=== PATIENT | female | born 1950 | race Caucasian/White ===

== ENCOUNTER → 2017-10-02 16:51 | Outpatient (CLI) | payer BC, MEDICARE, SELFPAY ==
--- NOTE | 2017-10-02 | IMM_PTH ---
PATIENT: CAITLYN LONDON LOC: [facility] U#:[id number] AGE/SX: 74/F ROOM: RE10/02/[address]: Dr. Campos Rodriguez MD : 1950 BED: DIS: SPEC #: [id number] RECD: 10/04/17 14:01 STATUS: JUDAH JILLIAN #: [id number] BRANDON: 10/02/17 00:[address]: Campos Rodriguez DEPT: IMMUNOHISTOCHEMISTRY RECD BY: Madison Beltran Tissues: Left breast, NOS Procedures: CK5-6 (add) CK8 (add) E-CAD (add) HER2 LION (add) KI-67 (add) P53 (add) MD (add) ER (initial) PHYSICIAN & INSTITUTION [place] [address] SPECIMEN INFORMATION: Tissue Source: Left breast Clinical Info: Abnormal mammogram Specimen Number: [id number] CPT code: 59562, 99395 x4, 39352 x3 METHODOLOGY: Deparaffinized sections of prefer/formalin-fixed tissue or PAP/DQ stained slides are incubated with monoclonal/polyclonal antibodies/oligonucleotide probes. Localization is made via biotin free immunoperoxidase method. Appropriate controls are performed and reacted as expected. Results on target cell population are indicated in the following table: RESULTS: ANTIBODY / CLONE RESULT E-Cad (ECH-6) positive CK8 (26pcndW41) positive CK5-6 (D5 & 1684) negative Ki-67 (30-9) positive, low P53 (DO-7) positive, weak, rare cells MORPHOMETRIC ANALYSIS ER (clone 6F11) >95%, strong MD (clone 16/1E2) >95%, moderate Her-2Neu (clone CB11) 1+ The prognostic test for HER2 is performed on formalin-fixed paraffin embedded tissue. A 3+ (positive) staining pattern is defined as intense, homogeneous, complete, circumferential membranous staining in >10% of contiguous tumor cells. A similar weak (2+) staining pattern is interpreted as equivocal. GWENDOLYN follow-up testing is recommended for all equivocal cases. Positivity/negativity for ER/MD is reported if > or < 1% of the tumor cells are immuno- reactive, respectively. The ASCO/CAP criteria is used for scoring. Reference: Journal of Clinical Oncology, 2013; 31:8943-5371 & 2010; 16:5405-3642. Duration of fixation: 28.5 Hrs; Sample Adequate: Yes. These assays have not been validated on decalcified tissues. Results should be interpreted with caution given the likelihood of false negativity on decalcified specimens. These tests were developed and their performance characteristics determined by [facility]. They may not have been cleared or approved by the U.S. Food and Drug Administration. The FDA has determined that such clearance or approval is not necessary. INTERPRETATION: Left breast, ultrasound-guided needle core biopsy: Invasive ductal carcinoma, nuclear grade 1. Positive for estrogen receptors (favorable prognostic indicator). Positive for progesterone receptors (favorable prognostic indicator). Negative for overexpression of SXH7zls. SJ:abel 10/05/17
--- NOTE | 2017-10-02 15:00 | BRBX_PTH ---
PATIENT: CAITLYN LONDON LOC: [facility] U#:[id number] AGE/SX: 74/F ROOM: RE10/02/[address]: Dr. Campos Rodriguez MD : 1950 BED: DIS: SPEC #: [id number] RECD: 10/02/17 16:51 STATUS: JUDAH JILLIAN #: [id number] BRANDON: 10/02/17 15:[address]: Campos Rodriguez DEPT: SURGICAL PATHOLOGY RECD BY: Jovany Pemberton Tissues: Left breast, NOS Procedures: Surgery Specimen Level IV HEADER OPERATION: Ultrasound-guided needle core biopsy left breast PRE-OP DIAGNOSIS: Abnormal mammogram R92.8 TISSUE SUBMITTED: Left breast biopsy ISCHEMIC TIME: <1 minute FIXATION TIME: 28.5 hours MICROSCOPIC DIAGNOSIS Left breast, ultrasound-guided needle core biopsy: Invasive ductal carcinoma, nuclear grade 1 (0.7 cm in length). See comment. SHRUTI:abel 7/25/18 COMMENT Immunohistochemistry ([id number]) supports the above diagnosis. ER/DC/Uzh1rsh studies are being performed on sections of tumor and the results from this study will be reported separately ([id number]). MICROSCOPIC DESCRIPTION Slides are reviewed. GROSS DESCRIPTION Received in fixative is one container labeled with the patient's name and designated left breast biopsy. The specimen consists of an elongated piece of chicas-yellow fibroadipose tissue measuring 1.5 cm in length and 0.1 cm in diameter. The entire specimen is submitted in one cassette. / SJ:rg 10/03/17 TC:0 CPT: 58581
== END ==
PROVIDERS: Visit Provider Surgery
DX: C50.912 Malignant neoplasm of unspecified site of left female breast (principal)
CPT/HCPCS: 88305; 88341; 88342

== ENCOUNTER 2017-11-09 13:49 | Observation (INO) | payer BC, MEDICARE, SELFPAY ==
[2017-11-09] VITALS (10 sets, daily range): BP systolic 126–154; BP diastolic 64–92; PULSE 69–82; RESP 16–18; TEMP 36–37.2; O2SAT 89–99; BMI 34.0
--- NOTE | 2017-11-09 | IMM_PTH ---
PATIENT: CAITLYN LONDON LOC: MS2 U#:[id number] AGE/SX: 67/F [place] [facility] [place] RE11/09/[address]: Dr. Campos Rodriguez MD : 1950 BED: 1 DIS: 11/10/2017 SPEC #: [id number] RECD: 11/15/17 10:03 STATUS: JUDAH REAmarjit #: [id number] BRANDON: 11/09/17 00:[address]: Campos Rodriguez DEPT: IMMUNOHISTOCHEMISTRY RECD BY: Love Logan ENTERED: 11/15/17 10:13 SP TYPE: IMMUNO OTHR DR: Dr. Gunnar Griggs MD Tissues: B - Axillary lymph node, NOS Procedures: CK7 (add) Pankeratin (add) CK7 (initial) PHYSICIAN & INSTITUTION [place] [address] SPECIMEN INFORMATION: Tissue Source: B ? Axillary contents Clinical Info: Malignant neoplasm of lower-inner quadrant left breast, ER positive Specimen Number: [id number] B1, B2 CPT code: 87082, 12903 x3 METHODOLOGY: Deparaffinized sections of prefer/formalin-fixed tissue or PAP/DQ stained slides are incubated with monoclonal/polyclonal antibodies/oligonucleotide probes. Localization is made via biotin free immunoperoxidase method. Appropriate controls are performed and reacted as expected. Results on target cell population are indicated in the following table: RESULTS: ANTIBODY / CLONE RESULT Block B1 CK7 (OV-TL12/30) negative AE1-3 (AE1/AE3/PCK26) negative Block B2 CK7 (OV-TL12/30) negative AE1-3 (AE1/AE3/PCK26) negative These tests were developed and their performance characteristics determined by [facility]. They may not have been cleared or approved by the U.S. Food and Drug Administration. The FDA has determined that such clearance or approval is not necessary. INTERPRETATION: B. Left axillary sentinel lymph nodes, biopsy: Three out of three lymph nodes negative for carcinoma. AM:abel 11/16/17
--- NOTE | 2017-11-09 | BREAST_PTH ---
PATIENT: CAITLYN LONDON LOC: MS2 U#:[id number] AGE/SX: 67/F ROOM: [facility] [place] [facility] [place] RE11/09/[address]: Dr. Campos Rodriguez MD : 1950 BED: 1 DIS: 11/10/2017 SPEC #: [id number] RECD: 11/09/17 11:08 STATUS: JUDAH JILLIAN #: [id number] BRANDON: 11/09/17 00:[address]: Campos Rodriguez DEPT: SURGICAL PATHOLOGY RECD BY: Love Logan ENTERED: 11/09/17 11:46 SP TYPE: BREAST OTHR DR: Dr. Gunnar Griggs MD Tissues: A - Left breast, NOS B - Axillary lymph node, NOS Procedures: Frozen Section (charge) Frozen Section Add'l ([facility]) Surgery Specimen Level V Frozen (no charge) HEADER OPERATION: Breast lumpectomy, SN, possible axillary dissection PRE-OP DIAGNOSIS: Malignant neoplasm of lower-inner quadrant of left breast, ER positive TISSUE SUBMITTED: A ? Left breast mass collected at 1100, sent for FS at 1104, single long suture ? medial, wire ? lateral, double long suture ? inferior, B ? Axillary contents collected at 1117, sent for FS at 1120 FROZEN SECTION DIAGNOSIS B. Left axillary sentinel lymph nodes, biopsy: Three out of three lymph nodes with no evidence of carcinoma. AM:abel 11/09/17 MICROSCOPIC DIAGNOSIS A. Left breast, lumpectomy: Invasive ductal carcinoma. See cancer checklist below. B. Left axillary contents, regional lymphadenectomy: Three out of three lymph nodes negative for carcinoma. See comment. :abel 11/15/17 COMMENT A. INVASIVE BREAST CANCER SUMMARY: Specimen: Partial breast Procedure: Excision with wire guidance Specimen integrity: Single intact specimen. Specimen size: 10 x 7.5 x 2 cm Specimen laterality: Left breast Invasive tumor size: 1.1 x 0.7 x 0.6 cm Tumor focality: Single focus of invasive carcinoma Macroscopic and Microscopic extent of tumor: Skin: Not present Nipple: Not present Skeletal muscle: Not present Histologic type of invasive carcinoma: Invasive ductal carcinoma Histologic Grade (Glo grade): Glandular/tubular differentiation score: 2 Nuclear pleomorphism score: 2 Mitotic count score: 1 Overall grade: Grade 1 (total score of 5) Margins: Uninvolved by invasive carcinoma. Distance from closest (inferior) margin ? 7 mm Lymph-Vascular invasion: Not identified Dermal lymph-vascular invasion: Not applicable Ductal carcinoma in situ (DCIS) - not present Lobular carcinoma in situ (LCIS) - not present Lymph nodes: Number of sentinel lymph nodes examined - 0 Total number of lymph nodes examined (sentinel and nonsentinel) - 3 No evidence of macrometastases, micrometastases or isolated tumor cells present. See specimen B. Microcalcifications ? present in both carcinoma and non-neoplastic tissue. Treatment effect - no known presurgical therapy. Additional pathologic findings ? fibrocystic change, adenosis with associated microcalcifications and focal intraductal hyperplasia without atypia. Changes of previous biopsy. Ancillary studies: Previously performed on same tumor ([id number] / [id number]). ER: Positive, <95%, strong SC: Positive, <95%, moderate Her2 gonzalez: negative (1+), IHC PATHOLOGIC STAGE: pT1c N0 Mx The above summary is in compliance with [employer] [place] [employer] (CAP) Cancer Protocols Checklist and [place] Joint Committee on Cancer (AJCC), Staging Manual, 8th Ed. B. Immunohistochemistry ([id number]) supports the above diagnosis. Case has been reviewed in consultation with Dr. Moon who concurs with the above diagnosis. IDC:SJ MICROSCOPIC DESCRIPTION Slides are reviewed. GROSS DESCRIPTION A - Received fresh for OR consultation labeled with the patient's name is a specimen designated ?left breast mass.? The specimen consists of an oriented fragment of chicas-yellow fibrofatty tissue measuring 10 x 7.5 x 2 cm and containing a wire. The specimen is differentially inked as follows: superior ? blue, inferior ? yellow, lateral ? orange, medial ? red, posterior ? black and inferior ? green. Sections reveal a 5 mm biopsy cavity with embedded metallic tracer. The biopsy cavity is located 7 mm from its closest (inferior) margin of excision. The remainder of the breast tissue is chicas-yellow and contains occasional fibrous streaks. No mass lesions are identified grossly. Outreach Assistant sections are submitted in ten cassettes as follows: 1 & 2 ? biopsy cavity and adjacent surrounding tissue, 3 & 4 ? perpendicular inked margins, 5-10 ? retail account representative sections of uninvolved breast parenchyma. / AM:abel 11/10/17 B - Received fresh for frozen section consultation labeled with the patient's name is a specimen designated sentinel lymph nodes/axillary contents. The specimen consists of three pieces of chicas-yellow fibrofatty tissue measuring 4 x 3.5 x 1 cm. Dissection reveals three nodules resembling lymph nodes ranging in size from 0.5 to 1.2 cm. The nodules are submitted in their entirety for frozen section consultation in two blocks. / AM:abel 11/09/17 TC:0 CPT: 59549, 36612, 88682, 65060 x2 ADDENDUM ADDENDUM ADDENDUM ADDENDUM ADDENDUM ADDENDUM ADDENDUM ADDENDUM 01/11/2018 09:56 ADDENDUM 01/11/2018 09:56 ADDENDUM 01/11/2018 09:56 ADDENDUM 01/11/2018 09:56 ADDENDUM 01/11/2018 09:56 An order for Oncotype testing was received from Dr. Lopez. This necessitated case review, block and slide selection by pathologist at [facility]. Breast Cancer Recurrence Score = 6 Results of the complete Oncotype testing ([facility] report) are viewable in EMR under: Reports - Pathology - Lab Pathology Report, Scanned.
[2017-11-09 08:36] LABS: Prothrombin Time Fingerstick 12.3 SEC (11.9-14.4)
[2017-11-09] MEDS: Isosulfan Blue 1% 5 ML Vial (09:56)
[2017-11-09] MEDS: Cefazolin 2 GM in 0.9% Normal Saline 100 ML IV (10:19)
--- NOTE | 2017-11-09 10:30 | OP.PCM_ITS ---
Problem List (1) Carcinoma of lower-inner quadrant of left breast, estrogen receptor negative Status: Acute Qualifiers: Patient sex: female Qualified Code(s): C50.312 - Malignant neoplasm of lower-inner quadrant of left female breast; Z17.1 - Estrogen receptor negative status [ER-] Report of Operation Date of Procedure: 11/09/17 Pre-Operative Diagnosis: c50.312 left female breast cancer lower inner quadrant Post-Operative Diagnosis: Same Surgery/Procedure Performed:: Ultrasound-guided wire localization of breast cancer lower inner quadrant. Injection of 5 cc of Lymphazurin blue. Lumpectomy. [place] lymph node biopsy Type of Anesthesia:: General Anesthesiologist: Nilo Neal Description of Procedure: Patient was brought in the operating room. Placed in the supine position. Under excellent LMA anesthesia by ultrasound the lower inner quadrant of the left breast identified the lesion I prepped the skin with alcohol. Under ultrasound guidance and placed a Kopan's wire through the lesion. I then injected 5 cc of Lymphazurin blue, regularly around the nipple. Breast was massaged for 5 minutes. And then it was sterilely prepped and draped in the usual fashion. A little inner quadrant of the left breast incision was made elliptically around the previous biopsy site. He is a plasma blade got all the way around the lesion had excellent hemostasis was sent to pathology and I had good margins around this very small cancerous lesion. The use of electrocautery and the wound to get good hemostasis and then packed the wound and then went into the axilla. I made an incision in the axilla and dissected down to the clavipectoral fascia identified the blue lymph node and use the neoprobe as well. Blue lymph node had a count of 17 out of the axilla. I used the neoprobe to try to identify any other lesions I did not hear any other lesions noted I see any other lymph nodes other than the blue lymph node in the 2 surrounding smaller lymph nodes that were all sent out. This came back as negative. I irrigated out the axilla. Chest wound was closed with deep dermals of 3-0 Vicryl in a running 4-0 Monocryl axilla was closed with a subcu of 2-0 Vicryl deep dermals of 3-0 Vicryl in a running 4-0 Monocryl. Dermabond was applied. Sterile dressings were applied. The patient tolerated the procedure well. - Admit VTE Documentation VTE Present on Admission: No VTE Mechan Device Prophylaxis: SCD's VTE Pharm Prophylaxis ordered?: No
[2017-11-09] MEDS: Bupivacaine Mpf 0.5% 30 ML VIAL (11:57)
[2017-11-09] MEDS: Cefazolin 1 GM/50 ML BAG IV ×2 (16:37→21:14)
[2017-11-09] MEDS: Lactated Ringers 1,000 ML 60 ML IV (16:43)
[2017-11-09] MEDS: oxyCODONE 5 MG Tablet PO (19:19)
[2017-11-09] MEDS: Metoprolol Tartrate 25 MG Tablet 12.5 MG PO (21:14)
[2017-11-09] MEDS: Atorvastatin Calcium 40 MG Tablet PO (21:14)
[2017-11-10 03:30] VITALS: BP 129/67; PULSE 83; RESP 18; TEMP 36.6; O2SAT 98
[2017-11-10] MEDS: Cefazolin 1 GM/50 ML BAG IV ×2 (03:51→10:00)
--- NOTE | 2017-11-10 07:05 | PCM.DC.BS ---
Discharge Diet: No Restrictions Discharge Activity: May Not Drive - for 2-3 days or while taking narcotic pain meds. May shower in (days): 1 Lifting Restrictions: 10 pounds for 1 week. Call your doctor if your incision/area has: Continuous Slow Oozing, Sudden Increased Bleeding Call your doctor if you observe: Fever of 101 or Higher Suture Line Care: Avoid Pulling/Pushing, Avoid Pinching/Bending Remove Dressing in (days):: 1 - Remove bulky dressing tomorrow. May leave any opsite dressing for 3-4 days. Keep dressing in place until your follow-up appointment. Additional Dressing/Incision Instructions:: Remove bulky dressing tomorrow. May leave any opsite dressing for 3-4 days. Keep dressing in place until your follow-up appointment. Allergies/Adverse Reactions: Allergies adhesive tape Allergy (Mild, Verified 11/06/17 08:59) rash Medications to take at Discharge Aspirin [Aspir-Low] 81 mg PO DAILY 06/02/16 Atorvastatin Calcium [Lipitor] 40 mg PO QHS 06/02/16 Lisinopril [Prinivil] 10 mg PO DAILY 06/02/16 Metoprolol Tartrate 12.5 mg PO BID 06/02/16 Warfarin [Coumadin ([facility])] 6 mg PO DAILY 06/02/16 Enoxaparin Sodium [Lovenox] 100 mg SQ BID 11/06/17 Oxycodone HCl/Acetaminophen [Percocet 5/325] 1 - 2 tab PO Q4H PRN PRN 4 Days #30 tab 11/09/17 The following prescriptions were given: Oxycodone HCl/Acetaminophen [Percocet 5/325] 1 - 2 tab PO Q4H PRN PRN 4 Days #30 tab PRN Reason: Pain Primary Care Physician: Gunnar Griggs MD [Primary Care Provider] -
[2017-11-10 09:58] VITALS: PULSE 86
[2017-11-10] MEDS: Metoprolol Tartrate 25 MG Tablet 12.5 MG PO (09:58)
[2017-11-10] MEDS: Enoxaparin 100 MG/ML Syringe SC (09:58)
[2017-11-10] MEDS: Lisinopril 10 MG Tablet PO (09:58)
[2017-11-10] MEDS: oxyCODONE 5 MG Tablet PO (09:58)
[2017-11-10 10:00] VITALS: BP 128/67; PULSE 86; RESP 18; TEMP 36.4; O2SAT 98
== END 2017-11-10 10:38 | disposition home or self-care (01) ==
LOC: MS2 14:17 → SDC 14:18
PROVIDERS: Admitting Provider Surgery; Family Provider Family Medicine; PCP Family Medicine; Visit Provider Surgery
PROC: (CPT 19301; principal; 2017-11-09 10:15)
DX: C50.312 Malignant neoplasm of lower-inner quadrant of left female breast (principal); Z17.1 Estrogen receptor negative status [ER-]; Z79.01 Long term (current) use of anticoagulants; Z79.82 Long term (current) use of aspirin; Z79.899 Other long term (current) drug therapy; Z86.718 Personal history of other venous thrombosis and embolism; E04.9 Nontoxic goiter, unspecified; I10 Essential (primary) hypertension
CPT/HCPCS: 00400; 19301; 38525; 36416; 38792; 85610; 88305; 88307; 88331; 88332; 88341; 88342; 96365; 96366; 96372; 99218; A9541; J7120; G0378; G0379; J2405; Q9968

== ENCOUNTER → 2018-02-28 11:29 | Outpatient (CLI) | payer BC, MEDICARE, SELFPAY ==
[2017-12-11 15:14] VITALS: BMI 34.5
--- NOTE | 2018-02-28 11:41 | BD_ITS ---
STUDY: DUAL ENERGY X-RAY ABSORPTIOMETRY / DXA REASON FOR EXAM: Female, 67 years old. History of breast cancer. Loss of height. History of bilateral hip replacement. TECHNIQUE: Bone Mineral Density (BMD) measurements of both forearms were obtained. COMPARISON: None. FINDINGS: Right Forearm: g/cm2 (0.822) / T-score (-0.7) / Z-score (1.0) Left Forearm: g/cm2 (0.709) / T-score (-2.0) / Z-score (-0.3) BD/Dexa Bone Density/Append Skel IMPRESSION: The patient is considered osteopenic as outlined below according to World Bernard Organization (WHO) criteria with a moderate fracture risk Reference Information: The T-score is the number of standard deviations above or below the standard which is normal for young adults at their peak bone mineral density. The World Health Organization (WHO) interprets the T-scores as follows: Above -1 Normal bone density Between -1 and -2.5 Osteopenia Equal to / or below -2.5 Osteoporosis As a practical clinical guideline, osteopenia may be graded as follows: Mild -1 through -1.5 Moderate -1.6 through -2.0 Severe -2.1 through -2.4 The Z-score is the number of standard deviations above or below age-matched controls. A Z-score of less than -1.5 would be considered abnormal. References: 1. NIH Osteoporosis and Related Bone Diseases http://www.osteo.org 2. International Society for Clinical Densitometry http://www.iscd.org 3. National Osteoporosis Foundation http://www.nof.org Electronically Signed: Cipriano Braynt MD at 9:38 EST Tel [phone], Service support ,
--- OUTSIDE RECORDS SUMMARY | 2018-06-01 15:31 | XMS RPT_ITS ---
:1950 Author Organization [place] Support Name Relationship Address Phone R Unavailable Unavailable Unavailable JOSHI, ABELARDO Unavailable [address] + [place] [address] R Unavailable Unavailable Unavailable JOSHI, ABELARDO Unavailable [address] + [place] [address] R Unavailable Unavailable Unavailable JOSHI, ABELAROD Unavailable [address] + [place] [address] R Unavailable Unavailable Unavailable JOSHI, ABELARDO Unavailable [address] + [place] [address] R Unavailable Unavailable Unavailable JOSIH, ABELARDO Unavailable [address] + [place] [address] R Unavailable Unavailable Unavailable JOSHI, ABELARDO Unavailable [address] + [place] [address] R Unavailable Unavailable Unavailable JOSHI, ABELARDO Unavailable [address] + [place] [address] R Unavailable Unavailable Unavailable JOSHI, ABELARDO Unavailable [address] + [place] [address] R Unavailable Unavailable Unavailable JOSHI, ABELARDO Unavailable [address] + [place] [address] R Unavailable Unavailable Unavailable JOSHI, ABELARDO Unavailable [address] + [place] [address] NOT GIVEN Unavailable Unavailable Unavailable JOSHI, DASHA Unavailable [address] [place] [address] + [place], [place] [phone] JOSHI, ABELARDO Unavailable [address] [place]available [place] [id number] NOT GIVEN Unavailable Unavailable Unavailable JOSHI, DASHA Unavailable [address] [place] [address] + [place], [place] [phone] JOSHI ABELARDO Unavailable [address] Unavailable [place], [place] [id number] NOT GIVEN Unavailable Unavailable Unavailable JOSHI, DASHA Unavailable [address] [place] [address] + [place], [place] [phone] JOSHI ABELARDO Unavailable [address] Unavailable [place] [phone] R Unavailable Unavailable Unavailable JOSHI, ABELARDO Unavailable [address] + [place] [address] R Unavailable Unavailable Unavailable JOSHI, ABELARDO Unavailable [address] + [place] [address] R Unavailable Unavailable Unavailable JOSHI, ABELARDO Unavailable [address] + [place] [address] R Unavailable Unavailable Unavailable JOSHI, ABELARDO Unavailable [address] + [place] [address] R Unavailable Unavailable Unavailable JOSHI, ABELARDO Unavailable [address] + [place] [address] R Unavailable Unavailable Unavailable JOSHI, ABELARDO Unavailable [address] + [place] [address] NOT GIVEN Unavailable Unavailable Unavailable JOSHI, DASHA Unavailable [address] [place] [address] + [place], [place] [phone] JOSHIYOHANNESABELARDO Unavailable [address] Unavailable [place], [place] [phone] NOT GIVEN Unavailable Unavailable Unavailable JOSHI, DASHA Unavailable [address] [address] + [place], [place] [phone] JOSHI, ABELARDO Unavailable [address] Unavailable [place] [phone] Care Team Providers Name Role Phone HEATHER LUONG Admitting Unavailable NEMAJIT PARKEREL Attending Unavailable GUNNAR GARZA Referring Unavailable MILLICENT, HEATHER Primary Care Unavailable GUNNAR GARZA Consulting Unavailable PROVIDER, UNKNOWN Consulting Unavailable PROVIDER, UNKNOWN Consulting Unavailable PROVIDER, UNKNOWN Consulting Unavailable JOE LOPEZ Admitting Unavailable JOE LOPEZ Attending Unavailable ISCKARUS, MANSOUR Primary Care Unavailable INDU, GUNNAR Consulting Unavailable PROVIDER, UNKNOWN Consulting Unavailable PROVIDER, UNKNOWN Consulting Unavailable PROVIDER, UNKNOWN Consulting Unavailable INDU, GUNNAR Admitting Unavailable INDU, GUNNAR Attending Unavailable INDU, GUNNAR Primary Care Unavailable INDU, GUNNAR Consulting Unavailable PROVIDER, UNKNOWN Consulting Unavailable PROVIDER, UNKNOWN Consulting Unavailable PROVIDER, UNKNOWN Consulting Unavailable INDU, GUNNAR Referring Unavailable DIDTREE JASMINE DO Admitting Unavailable DIDTREE JASMINE DO Attending Unavailable DIDMITALI, TREE SERRANO Primary Care Unavailable INDU, GUNNAR Consulting Unavailable PROVIDER, UNKNOWN Consulting Unavailable PROVIDER, UNKNOWN Consulting Unavailable PROVIDER, UNKNOWN Consulting Unavailable DIDURTREE DO Admitting Unavailable DIDURTREE DO Attending Unavailable DIDUR, TREE SERRANO Primary Care Unavailable INDU, GUNNAR Consulting Unavailable INDU, GUNNAR Referring Unavailable PROVIDER, UNKNOWN Consulting Unavailable PROVIDER, UNKNOWN Consulting Unavailable PROVIDER, UNKNOWN Consulting Unavailable Chiquita, Jacki Attending Unavailable SARTHAK ESPINAL Primary Care Unavailable Chiquita, Tyra Attending Unavailable Indu, Gunnar Referring Unavailable Indu, Bland Primary Care Unavailable Prah, Gianni Consulting Unavailable Prah, Gianni Attending Unavailable Indu, Gunnar Referring Unavailable Indu, Gunnar Primary Care Unavailable Isckarus, Mansour Attending Unavailable Indu, Bland Referring Unavailable SARTHAK ESPINAL Primary Care Unavailable Prah, Gianni Consulting Unavailable Michael, Campos Attending Unavailable Indu, Bland Referring Unavailable SARTHAK ESPINAL Primary Care Unavailable Michael, Campos Attending Unavailable Indu, Gunnar Referring Unavailable SARTHAK ESPINAL Primary Care Unavailable Estero, Campos Attending Unavailable SARTHAK ESPINAL Primary Care Unavailable Estero, Campos Referring Unavailable Isckarus, Mansour Attending Unavailable Indu, Gunnar Referring Unavailable SARTHAK ESPINAL Primary Care Unavailable Prah, Gianni Consulting Unavailable Estero, Campos Attending Unavailable Indu, Gunnar Referring Unavailable SARTHAK ESPINAL Primary Care Unavailable Estero, Campos Attending Unavailable Michael, Campos Referring Unavailable Indu, Gunnar Primary Care Unavailable Michael, Campos Admitting Unavailable Estero, Campos Attending Unavailable Indu, Gunnar Referring Unavailable Indu, Gunnar Primary Care Unavailable Estero, Campos Attending Unavailable Isckarus, Mansour Attending Unavailable Indu, Gunnar Referring Unavailable SARTHAK ESPINAL Primary Care Unavailable Prah, Gianni Consulting Unavailable Brendan Urias Attending Unavailable Indu, Gunnar Referring Unavailable SARTHAK ESPINAL Primary Care Unavailable Gianni Kennedy Consulting Unavailable Joe Lopez Attending Unavailable Gunnar Garza Referring Unavailable SARTHAK ESPINAL Primary Care Unavailable Gianni Kennedy Consulting Unavailable ChiquitaJacki cho Attending Unavailable Gunnar Garza Referring Unavailable SARTHAK ESPINAL Primary Care Unavailable Gianni Kennedy Consulting Unavailable PROBLEMS PROBLEMS DATE TYPE CONDITION / CODE ATTENDING STATUS SOURCE 04/06/2018 Unknown C50.911 - Gianni Kennedy Active [facility] Malignant neoplasm Community of unspecified Hospital site of right Repository female breast / C50.911(ICD-10) 04/06/2018 Unknown Z17.0 - Estrogen Gianni Kennedy Active [facility] receptor positive Community status [ER+] / Hospital Z17.0(ICD-10) Repository 01/17/2018 Unknown Z13.820 - Chiquita, Jacki Active [facility] Encounter for Community screening for Hospital osteoporosis / Repository Z13.820(ICD-10) 01/17/2018 Unknown Z78.0 - Chiquita, Jacki Active [facility] Asymptomatic Community menopausal state / Hospital Z78.0(ICD-10) Repository 01/17/2018 Unknown Z79.811 - Long Chiquita, Jacki Active [facility] term (current) use Community of aromatase Hospital inhibitors / Repository Z79.811(ICD-10) 11/10/2017 Unknown C50.311 - Campos Rodriguez Active [facility] Malignant neoplasm Community of lower-inner Hospital quadrant of right Repository female breast / C50.311(ICD-10) 11/21/2017 Unknown C50.312 - Campos Rodriguez Active [facility] Malignant neoplasm Community of lower-inner Hospital quadrant of left Repository female breast / C50.312(ICD-10) 11/21/2017 Unknown Z17.1 - Estrogen Campos Rodriguez Active [facility] receptor negative Community status [ER-] / Hospital Z17.1(ICD-10) Repository 10/03/2017 Unknown R92.8 - Other aCmpos Rodriguez Active [facility] abnormal and Community inconclusive Hospital findings on Repository diagnostic imaging of breast / R92.8(ICD-10) 10/03/2017 Unknown C50.912 - Isckarus, Active [facility] Malignant neoplasm [facility] of unspecified Hospital site of left Repository female breast / C50.912(ICD-10) 10/03/2017 Unknown R93.8 - Abnormal Ottonielkarus, Active [facility] findings on [facility] of other specified Repository body structures / R93.8(ICD-10) PROCEDURES PROCEDURES No Procedure Records FoundRESULTS RESULTS ONCOLOGY VISIT REPORT Observed: 02/28/2018 Status: F Source: [facility] 2:26 PM [facility] REPOSITORY [facility] On[facility] 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 Patient is status post modified radical mastectomy July 2005 followed by [facility] chemo immune therapy (1 year) concluded September 2006 and she went on surveillance. 2-On screening September 2017 A suspicious abnormality in the contralateral breast (left) seen on screening mammogram and ultrasound October 02, 2017 biopsy showed Invasive ductal carcinoma, nuclear grade 1 , ER positive (95%) OK positive (95% ) and Her-2 not overexpressed (1+) On November 09, 2017 she underwent a left partial mastectomy with sentinel lymph node biopsy. Pathology reported: MICROSCOPIC DIAGNOSIS A. Left breast, lumpectomy: Invasive ductal carcinoma. See cancer checklist below. B. Left axillary contents, regional lymphadenectomy: Three out of three lymph nodes negative for carcinoma. See comment. AM:abel 11/15/17 COMMENT A. INVASIVE BREAST CANCER SUMMARY: Specimen: Partial breast Procedure: Excision with wire guidance Specimen integrity: Single intact specimen. Specimen size: 10 x 7.5 x 2 cm Specimen laterality: Left breast Invasive tumor size: 1.1 x 0.7 x 0.6 cm Tumor focality: Single focus of invasive carcinoma Macroscopic and Microscopic extent of tumor: Skin: Not present Nipple: Not present Skeletal muscle: Not present Histologic type of invasive carcinoma: Invasive ductal carcinoma Histologic Grade (Glo grade): Glandular/tubular differentiation score: 2 Nuclear pleomorphism score: 2 Mitotic count score: 1 Overall grade: Grade 1 (total score of 5) Margins: Uninvolved by invasive carcinoma. Distance from closest (inferior) margin 7 mm Lymph-Vascular invasion: Not identified Dermal lymph-vascular invasion: Not applicable Ductal carcinoma in situ (DCIS) - not present Lobular carcinoma in situ (LCIS) - not present Lymph nodes: Number of sentinel lymph nodes examined - 0 Total number of lymph nodes examined (sentinel and nonsentinel) - 3 No evidence of macrometastases, micrometastases or isolated tumor cells present. See specimen B. Microcalcifications present in both carcinoma and non-neoplastic tissue. Treatment effect - no known presurgical therapy. Additional pathologic findings fibrocystic change, adenosis with associated microcalcifications and focal intraductal hyperplasia without atypia. Changes of previous biopsy. Ancillary studies: Previously performed on same tumor ([id number] / [id number]). ER: Positive, <95%, strong OK: Positive, <95%, moderate Her2 gonzalez: negative (1+), IHC PATHOLOGIC STAGE: pT1c N0 Mx Oncotype DX on the left breast cancer low risk for recurrence (total score 6) Anastrozole 01/19/18- - Interval History The patient is presenting to clinic accompanied by for 6 week follow up and to review her treatment summary and survivorship care plan. States good adherence and good tolerance with anastrozole, with the exception of rare, mild hot flashes. Injured left knee approx 2 weeks ago, following with a local chiropractor but denies any improvement in pain- in wheelchair today. Underwent bone density exam earlier this afternoon. Taking calcium and vitamin D as advised. - Past Medical/Social History Past Medical History Past Medical History: Heart disease Other Past Medical History: DVT ENLARGED THYROID Cancer: Breast cancer Past Surgical History Surgical: section,Cholecystectomy,Hysterectomy, Mastectomy Family History Paternal Past Medical History: Heart disease Maternal Past Medical History: Unknown Maternal History of Cancer: Colon cancer Social History Social History: No changes Smoking Status Never smoker Review of Systems Constitutional:: Denies: Fever, Sweats, Weight loss, Appetite change, Chills Cardiovascular:: Denies: Chest pain, Palpitations, Dyspnea on exertion, Orthopnea, PND, Shortness of breath Respiratory: Denies: Cough, Hemoptysis, Shortness of Breath, Wheezing Gastrointestinal:: Denies: Abdominal pain, Nausea, Vomiting, Diarrhea, Constipation, Hematochezia Genitourinary: Denies: Dysuria, Hematuria, 15, Flank pain Musculoskeletal:: Reports: - - Left knee pain with ambulation subsequent to known injury. Denies: Back pain, Myalgia Skin: Denies: Rash, Skin Changes, Wounds Neurological:: Denies: Headache, Dizziness, Visual changes, Tinnitus, Hearing loss Psychiatric: Denies: Anxiety, Depression, Homicidal Ideations, Suicidal Ideations Vital Signs Height 5 ft 5 in Weight: 210 lb 3.2 oz Weight in Pounds 210.2 lbs BMI 34.5 Pulse Ox 93 - Physical Exam General: Alert, Oriented x3, No apparent distress HEENT: Atraumatic, Normocephalic Oropharynx:: Negative for: Dry mucosa, Ulcerated lesions Neck:: Supple, Trachea midline. Negative for: JVD, bilateral Cardiac:: Regular rate, Regular rhythm, Normal S1, Normal S2. Negative for: Murmur Lungs: Clear to auscultation, Excusion symmetrical. Negative for: Rhonchi, Wheezes Abdomen:: Bowel sounds x 4, Soft, Non-tender, Non-distended. Negative for: Hepatosplenomegaly Extremities:: - - left knee tender with all movements. Negative for: Cyanosis, Edema, Calf tenderness Neurological: Neuro grossly intact Skin:: Negative for: Lesions, Rash, Petechiae, Ecchymosis Psychiatric:: Appropriate affect, Euthymic Lymphatics:: Negative for: Cervical lymphadenopathy, Supraclavicular lymphadenopathy, Axillary lymphadenopathy Breast:: - - Deferred today per patient Assessment and Plan 67-year-old female with bilateral metachronous breasts cancers: 1. Invasive ductal cancer of the left breast stage IA (T1c, N0, M0) grade 1, ER/ OK positive, HER-2 not overexpressed. Oncotype DX score of 6 (low risk, 10-year risk of distant recurrence after tamoxifen adjuvant therapy of 5%) patient is status post partial mastectomy with sentinel lymph node biopsy October 2017. Elected not to pursue radiation therapy after discussions with Dr. Urias. Began anastrozole 01/19/18. Tolerating AI well with occasional hot flashes. Underwent DEXA scan today, results are pending. She will be notified of results by phone. Discussed the potential need for denosumab if shows osteopenia/osteoporosis. Advised her to continue AI, BSE monthly and promptly report any changes. Anastrozole refill provided. Reviewed treatment summary and survivorship care plan documentation. Copies of which are provided to the patient and all members of her health care team. Engaged in lengthy conversation regarding potential fpc/late side effects associated with chemotherapy exposure (2005) recommendations for follow up and signs/symptoms of concern that should be report in between visits Healthy living recommendations:- Today we spent time discussing healthy lifestyle modifications inclusive of plant based diet including low fat, high fiber foods, low sodium and low cholesterol foods. We also discussed the importance of an exercise regimen of approx 5-6 days a week or physical activity >20 min per day and maintaining a healthy weight as well as moderate alcohol intake; abstinence from tobacco products. We discussed the appropriate health maintenance screenings for this patient. Continue to follow with pcp. Psychosocial AND spiritual health- She is well supported by spouse and family and describes a good support system from her kareem . Continues to adjust to life as a cancer survivor. We discussed sexual intimacy during hormone therapy, fear of recurrence, coping strategies and potential resources. 2. Invasive ductal cancer of the right breast stage IIa (T2, N0, M0) grade 2, ER/OK negative, HER-2 overexpressed. Patient is status post modified radical mastectomy followed by adjuvant TC concluded September 2006. 3. 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 4. Left knee pain- Subsequent to identified time of injury. X 2 weeks. Declined offer of referral to orthopedics. Recommend she be evaluated by her pcp. Given PMH for metachronous breast cancers and significant family history, discussed indications for genetic counseling at great length. Patient would like to discuss with family at revisit at her next OV with Dr. Lopez in March. Greater than 50% of this one hour visit was spent in counseling and a significant amount of time was allotted for questions. All the patient's concerns were addressed to her satisfaction. Jacki Porras, MSN, DIRECTOR OF CARDIAC REHABILITATION, AOCNP Medications: Prescriptions This Visit Medication Instructions Recorded Anastrozole [Arimidex] 1 mg PO DAILY 30 Days #30 tablet 01/17/18 Calcium Carbonate [Calcium] 500 mg PO DAILY 01/17/18 Primary Care Provider: Referring Provider: - Problem List (1) Carcinoma of lower-inner quadrant of left breast, estrogen receptor negative Status: Acute Qualifiers: Patient sex: female Qualified Code(s): C50.312 - Malignant neoplasm of lower-inner quadrant of left female breast; Z17.1 - Estrogen receptor negative status [ER-] (2) Educational circumstance Status: Acute (3) Left knee pain Status: Acute Qualifiers: Chronicity: acute Qualified Code(s): M25.562 - Pain in left knee 02/28/18 1426 <Electronically signed by Jacki BUCKNER> Date Jacki BUCKNER Cosigner Signature: Date (if applicable) CC: END OF TREATMENT Observed: 02/28/2018 Status: F Source: [facility] SUMMARY 1:58 PM [facility] REPOSITORY [facility] Medical Oncology [address] [place] [id number] End of Treatment Summary Date of Service: 02/28/18 1147 MR#: [id number] Acct: [id number] Name: NEVIN JOSHI Rep #: [id number] : 1950 From: Jacki BUCKNER Age/Sex: 67/F Location: [facility] Status: Signed General Information Primary Care Provider:: Gunnar Garza Surgeon Name: Campos Rodriguez Radiation Oncologist:: Brendan Urias Medical Oncologist:: Joe Lopez Other Providers:: Dr. Evangelist Arizmendi (health care technician). Dr. Hakan Adams (orthopedist) Treatment Summary Problem List: All Active Problems (Last Reviewed 02/28/18 @ 13:09 by Michelle Wise) Carcinoma of lower-inner quadrant of left breast, estrogen receptor negative (Acute) Educational circumstance (Acute) Cancer Type / Location / Histology Subtype:: Invasive ductal carcioma of the left breast Diagnosis Date [year]:: 10/02/17 Stage:: I - (T1c, N0, M0) Surgery:: Yes Surgery Date[s] [year]:: 11/09/17 Surgical Procedure / Location / Findings:: Left breast partial mastectomy with sentinel lymph node biopsy- Tumor measured 1.1 cm, grade 1, single focus, no DCIS present, margins uninvolved. 3/3 lymph nodes negative for involvement. ER + (>95%) OK +, HER2 1 by IHC Radiation:: No Systemic Therapy [chemotherapy, hormonal therapy, other]:: Yes Name of Agents Used and End Date of Usage:: History of invasive ductal carcinoma (ER-, OK-, HER2+) of the right breast s/p right modified radical mastectomy in 2005 followed by [facility] chemotherapy x 1 year (completed 09/2006). Persistent symptoms of side effects at completion of treatment:: No Follow-up Care Plan Need for ongoing [adjuvant] treatment for cancer:: Yes Additional Treatment Name #1:: Endocrine therapy-Anastrozole Planned duration if additional treatment #1:: at minimum 5 years Possible side effects of additional treatment #1:: Fatigue, hot flashes, muscle aches, vaginal dryness Schedule of Clinical Visits Coordination Provider:: Joe Lopez When/How often:: Every 3-6 months while on hormone therapy Cancer Surveillance/Other Test Coordination Provider:: Joe Lopez - Screening left mammogram When/How often:: Every 12 months Coordination Provider:: Joe Lopez - Bone density exam When/How often:: Every two years Cancer Surveillance/Symptoms: Please continue to see your primary care provider for all general health care recommended for a F your age, including cancer screening tests. Any symptoms should be brought to the attention of your provider: * Anything that represents a brand new symptom * Anything that represents a persistent symptom * Anything you are worried about that might be related to the cancer coming back Cancer survivors may experience issues with the areas listed below:: Emotional and mental health, Physical functioning, Memory or concentration loss, Fatigue, Weight changes, Financial Advice or Assistance, Sexual functioning Cancer Survivor Issues - Help: If you have any concerns in these or other areas, please speak with your doctors or nurses to find out how you can get help with them. A number of lifestyle/behaviors can affect your ongoing health, including the risk for the cancer coming back or developing another cancer. Discuss these recommendations with your doctor or nurse.: Weight Management [loss/gain], Diet, Sunscreen use, Physical activity Other comments:: Prepared by SHAYE Encarnacion AOCNP. Delivered on 02/28/18 02/28/18 9840 <Electronically signed by Jacki BUCKNER> Date Jacki BUCKNER Cosigner Signature: Date (if applicable) CC: Gunanr Garza MD DEXA BONE DENSITY/APPEND Observed: 02/28/2018 Status: F Source: [facility] 11:32 AM [facility] REPOSITORY [facility] Imaging Services [address] [place] [id number] Dexa Bone Density/Append Skel MR#: [id number] Acct: [id number] Name: NEVIN JOSHI Rep #: [id number] : 1950 F 67 From: Cipriano Bryant MD PCP: Gunnar Garza MD Status: [facility] CLI Study: Dexa Bone Density/Append Skel Date of Exam: 02/28/18 Exam# [id number] Ordering Dr: Jacki Porras STUDY: DUAL ENERGY X-RAY ABSORPTIOMETRY / DXA REASON FOR EXAM: Female, 67 years old. History of breast cancer. Loss of height. History of bilateral hip replacement. TECHNIQUE: Bone Mineral Density (BMD) measurements of both forearms were obtained. COMPARISON: None. FINDINGS: Right Forearm: g/cm2 (0.822) / T-score (-0.7) / Z-score (1.0) Left Forearm: g/cm2 (0.709) / T-score (-2.0) / Z-score (-0.3) BD/Dexa Bone Density/Append Skel IMPRESSION: The patient is considered osteopenic as outlined below according to World Bernard Organization (WHO) criteria with a moderate fracture risk Reference Information: The T-score is the number of standard deviations above or below the standard which is normal for young adults at their peak bone mineral density. The World Health Organization (WHO) interprets the T-scores as follows: Above -1 Normal bone density Between -1 and -2.5 Osteopenia Equal to / or below -2.5 Osteoporosis As a practical clinical guideline, osteopenia may be graded as follows: Mild -1 through -1.5 Moderate -1.6 through -2.0 Severe -2.1 through -2.4 The Z-score is the number of standard deviations above or below age-matched controls. A Z-score of less than -1.5 would be considered abnormal. References: 1. NIH Osteoporosis and Related Bone Diseases http://www.osteo.org 2. International Society for Clinical Densitometry http://www.iscd.org 3. National Osteoporosis Foundation http://www.nof.org Electronically Signed: Cipriano Bryant MD at 9:38 EST Tel [phone], Service support , CC: Gunnar Garza MD; Jacki Porras NP Lumber Sticker: Signed ONCOLOGY VISIT REPORT Observed: 01/17/2018 Status: F Source: [facility] 4:14 PM [facility] [facility] [place] [address] OFFICE VISIT Date of Service: 01/17/18 1501 MR#: [id number] Acct: [id number] Name: NEVIN JOSHI #: [id number] : 1950 From: Jacki BUCKNER Age/Sex: 67/F Location: OMD Status: Signed Subjective - Date of Service Date of Service:: 01/17/18 - Chief Complaint Endocrine Therapy Education-anastrozole - History of Present Illness 67-year-old female was metachronous breasts cancers: 1- Patient was Diagnosed with right breast invasive ductal cancer stage IIA (T2, N0, M0) grade 2, ER OK negative, HER-2 overexpressed in 2005. Patient is status post modified radical mastectomy July 2005 followed by [facility] chemo immune therapy (1 year) concluded September 2006 and she went on surveillance. 2-On screening September 2017 A suspicious abnormality in the contralateral breast (left) seen on screening mammogram and ultrasound October 02, 2017 biopsy showed Invasive ductal carcinoma, nuclear grade 1 , ER positive (95%) OK positive (95% ) and Her-2 not overexpressed (1+) On November 09, 2017 she underwent a left partial mastectomy with sentinel lymph node biopsy. Pathology reported: MICROSCOPIC DIAGNOSIS A. Left breast, lumpectomy: Invasive ductal carcinoma. See cancer checklist below. B. Left axillary contents, regional lymphadenectomy: Three out of three lymph nodes negative for carcinoma. See comment. AM:abel 11/15/17 COMMENT A. INVASIVE BREAST CANCER SUMMARY: Specimen: Partial breast Procedure: Excision with wire guidance Specimen integrity: Single intact specimen. 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 Distance from closest (inferior) margin 7 mm Lymph-Vascular invasion: Not identified Dermal lymph-vascular invasion: Not applicable Ductal carcinoma in situ (DCIS) - not present Lobular carcinoma in situ (LCIS) - not present Lymph nodes: Number of sentinel lymph nodes examined - 0 Total number of lymph nodes examined (sentinel and nonsentinel) - 3 No evidence of macrometastases, micrometastases or isolated tumor cells present. See specimen B. Microcalcifications present in both carcinoma and non-neoplastic tissue. Treatment effect - no known presurgical therapy. Additional pathologic findings fibrocystic change, adenosis with associated microcalcifications and focal intraductal hyperplasia without atypia. Changes of previous biopsy. Ancillary studies: Previously performed on same tumor ([id number] / [id number]). ER: Positive, <95%, strong OK: Positive, <95%, moderate Her2 gonzalez: negative (1+), IHC PATHOLOGIC STAGE: pT1c N0 Mx Oncotype DX on the left breast cancer low risk for recurrence (total score 6) - Interval History The patient is presenting to clinic accompanied by her daughter for endocrine therapy education. States she is thrilled that she has not required to undergo chemotherapy or radiation therapy and is eager to get started although nervous about potential side effects as she has had conversations with other breast cancer survivors who have been on monotherapy. - Past Medical/Social History Past Medical History Past Medical History: Heart disease Other Past Medical History: DVT ENLARGED THYROID Cancer: Breast cancer Past Surgical History Surgical: section,Cholecystectomy,Hysterectomy, Mastectomy Family History Paternal Past Medical History: Heart disease Maternal Past Medical History: Unknown Maternal History of Cancer: Colon cancer Social History Social History: No changes Smoking Status Never smoker Review of Systems Constitutional:: Denies: Fever, Sweats, Weight loss, Appetite change, Chills Cardiovascular:: Denies: Chest pain, Palpitations, Dyspnea on exertion, Orthopnea, PND, Shortness of breath Respiratory: Denies: Cough, Hemoptysis, Shortness of Breath, Wheezing Gastrointestinal:: Denies: Abdominal pain, Nausea, Vomiting, Diarrhea, Constipation, Hematochezia Genitourinary: Denies: Dysuria, Hematuria, 15, Flank pain Musculoskeletal:: Denies: Back pain, Myalgia, Arthralgia Skin: Denies: Rash, Skin Changes, Wounds Neurological:: Denies: Headache, Dizziness, Visual changes, Tinnitus, Hearing loss Psychiatric: Denies: Anxiety, Depression, Homicidal Ideations, Suicidal Ideations Vital Signs Height 5 ft 5 in Weight: 210 lb 3.2 oz Weight in Pounds 210.2 lbs BMI 34.5 Pulse Ox 93 - Physical Exam General: Alert, Oriented x3, No apparent distress HEENT: Atraumatic, Normocephalic Psychiatric:: Appropriate affect, Euthymic Assessment and Plan 67-year-old female with bilateral metachronous breasts cancers: 1. Invasive ductal cancer of the left breast stage IA (T1c, N0, M0) grade 1, ER/ OK positive, HER-2 not overexpressed. Oncotype DX score of 6 (low risk, 10-year risk of distant recurrence after tamoxifen adjuvant therapy of 5%) patient is status post partial mastectomy with sentinel lymph node biopsy October 2017. Elected not to pursue radiation therapy after discussions with Dr. Urias. She is not a candidate for tamoxifen due to history of VTE. She is a candidate for 5 years adjuvant hormonal therapy with an aromatase inhibitor. The patient has been thoroughly educated to risks/benefits associated with anastrozole. Specifically, she has been educated to potential side effects, recommendations for symptom management, and circumstances in which she should contact provider prior to planned follow up, such as myalgias, hot flashes causing interference with ADLs. She has been provided written educational information regarding aromatase inhibitor therapy and lists of estrogenic herbs/supplements to avoid. I reviewed recommendations for calcium and vitamin D supplementation and the importance of weight bearing activity. Greater than 50% of this one hour visit was spent in counseling and a significant amount of time was allotted for questions. All the patient's concerns were addressed to her satisfaction and she is agreeable to proceed. Rx for anastrozole provided. Believes last bone density test was done in 2015. Orders provided for DEXA scan. 2. Invasive ductal cancer of the right breast stage IIa (T2, N0, M0) grade 2, ER/OK negative, HER-2 overexpressed. Patient is status post modified radical mastectomy followed by adjuvant TCH concluded September 2006. 3. 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 Given PMH for metachronous breast cancers and significant family history, discussed indications for genetic counseling at great length. Patient would like to discuss with family at revisit at her next OV. RTO in 6 weeks to review DEXA scan and survivorship care plan. Jacki Porras, MSN, DIRECTOR OF CARDIAC REHABILITATION, AOCNP Medications: Prescriptions This Visit Medication Instructions Recorded Calcium Carbonate [Calcium] 500 mg PO DAILY 01/17/18 Primary Care Provider: Referring Provider: - Problem List (1) Carcinoma of lower-inner quadrant of left breast, estrogen receptor negative Status: Acute Qualifiers: Patient sex: female Qualified Code(s): C50.312 - Malignant neoplasm of lower-inner quadrant of left female breast; Z17.1 - Estrogen receptor negative status [ER-] (2) Educational circumstance Status: Acute 01/17/18 1614 <Electronically signed by Jacki BUCKNER> Date Jacki BUCKNER Cosigner Signature: Date (if applicable) CC: ONCOLOGY FOLLOW-UP Observed: 01/04/2018 Status: F Source: [facility] VISIT 7:43 [facility] Medical Records Department [address] [place] [id number] Oncology Follow-Up Visit 01/04/18 0738 MR#: [id number] Acct: [id number] Name: NEVIN JOSHI Rep #: [id number] : 1950 67 From: Brendan Urias DO PCP: Gunnar Garza MD Status: REG RCR Y Location: [facility] Date of Service: 01/03/18 Last Clinic Visit: 01/02/18 Diagnosis: Nevin Joshi is a 67-year-old postmenopausal female diagnosed with stage IIA (pT2 N0 M0) grade 2 invasive ductal carcinoma (ER OK negative HER-2 overexpressed) of the right breast s/p modified radical mastectomy followed by [facility] chemotherapy and Herceptin times 1 year (2005) and now diagnosed with stage IA (pT1c pN0 (sn) Mx grade 1 invasive ductal carcinoma (ER >95%, OK >95%, Her2 1+ IHC) of the left breast status post lumpectomy and sentinel lymph node biopsy (11/09/2017). Oncotype score was found to be low at 6. Plan: Patient called into confirm that she has considered her options of hormone therapy with or without radiation therapy and she has decided that the increased risk of local recurrence in the breast is acceptable and she would prefer to pursue hormone therapy alone and would like to omit adjuvant radiation therapy. I believe she fully understood the risks and benefits of radiation therapy I believe that this is a reasonable choice given her age and very low risk disease. I recommended that she pursue breast exam every 3-4 months during the first year, resume annual mammogram screening, and completed 5-10 years of hormone therapy and she confirmed that she is planning to comply with these recommendations. Brendan Urias DO, MS Roller Shop Supervisor, Department of Radiation Oncology [facility] 01/04/18 7154 <Electronically signed by Brendan Urias DO> Date Brendan Urias DO CC: Campos Rodriguez MD; Joe Lopez MD Signed ONCOLOGY FOLLOW-UP Observed: 01/02/2018 Status: F Source: [facility] VISIT 4:37 PM [facility] REPOSITORY [facility] Medical Records Department [address] [place] [address] Oncology Follow-Up Visit 01/02/18 1621 MR#: [id number] Acct: [id number] Name: NEVIN JOSHI Rep #: [id number] : 1950 67 From: Brendan Urias DO PCP: Gunnar Garza MD Status: REG RCR Y Location: [facility] Date of Service: 01/02/18 Last Clinic Visit: Diagnosis: Nevin Joshi is a 67-year-old postmenopausal female diagnosed with stage IIA (pT2 N0 M0) grade 2 invasive ductal carcinoma (ER OK negative HER-2 overexpressed) of the right breast s/p modified radical mastectomy followed by [facility] chemotherapy and Herceptin times 1 year (2005) and now diagnosed with stage IA (pT1c pN0 (sn) Mx grade 1 invasive ductal carcinoma (ER >95%, OK >95%, Her2 1+ IHC) of the left breast status post lumpectomy and sentinel lymph node biopsy (11/09/2017). Oncotype score was found to be low at 6. History of Present Illness: 2005: Patient was diagnosed with stage IIA (pT2 N0 M0) grade 2 invasive ductal carcinoma (ER OK negative HER-2 overexpressed) of the right breast and underwent modified radical mastectomy followed by [facility] chemotherapy and Herceptin times 1 year. She did not receive any adjuvant radiation therapy 09/15/2017: Unilateral left digital diagnostic mammogram was performed at a six-month interval. This demonstrated a focal asymmetry characterized by obscured intermediate morphology at the mid breast depth at the 2 o'clock position upper outer quadrant measuring 13 x 10 x 10 mm in size. BI-RADS Category 0 recommend ultrasound. 09/15/2017: Ultrasound of the left breast was completed which demonstrated new solid suspicious appearing lesion with hypoechoic echotexture involving the mid breast depth at the 8 o'clock position measuring 3 x 4 mm in size with posterior shadowing. Simple benign-appearing cysts which are anechoic echotexture are seen throughout the left breast with the largest cyst in the mid breast depth at the 12 o'clock position upper breast between the inner and outer quadrants measuring 18 x 8 x 12 mm. Cysts in the 1 o'clock position likely correspond to the mammographic finding. BI-RADS Category 4. 10/02/2017: Ultrasound-guided core biopsy of the lesion was performed and pathology showed grade 2 invasive ductal carcinoma (ER >95%, OK >95%, Her2 1+ IHC). 11/09/2017: Patient underwent left breast lumpectomy and sentinel lymph node biopsy. Pathology demonstrated grade 1 invasive ductal carcinoma (ER >95%, OK >95%, Her2 1+ IHC) measuring 1.1 x 0.7 x 0.6 cm, no lymph vascular space invasion is identified, margins are uninvolved by invasive carcinoma with a distance to the closest margin being 7 mm from the end area margin, 0 of 3 sentinel lymph nodes contained metastatic carcinoma. pT1c p N0 (sn) Mx. 12/04/2017: Patient was evaluated by medical oncology and Oncotype DX was ordered to guide any chemotherapy recommendations. Recommended at least 5 years of adjuvant aromatase inhibitor therapy. Oncotype score was completed and returned low risk (6). Radiation Treatment History: No history of previous radiation therapy. No pacemaker or history of collagen vascular disease. Interval History: Patient returns for a interval follow-up after finding the Oncotype score was low and she will not be receiving chemotherapy. She returns because she has not sure if she would like to receive adjuvant radiation therapy or just be treated with hormone therapy and so she wants to have a further discussion. She denies having any other medical concerns right now. I have reviewed the medical, surgical, and other pertinent history in details and have updated medication and allergy information in the electronic medical record. Review of Systems: A 12-point review of systems was completed and was negative except for what is noted in the HPI/Interval History and by the nurse. Height/Weight/BMI: Height: 5 ft 5 in Weight: 95.799 kg VSS Physical Exam: ECO [place]AR[place] SCORE: 70-80% CONSTITUTIONAL: Well-developed, well-nourished, and in no apparent distress. HEENT: Mucous membranes moist. No evidence of thrush or lesions within the visualized oropharynx or oral cavity. No trismus. Pupils are equal, round, and reactive to light and accommodation. Extraocular movements are intact. Sclerae are anicteric. NECK: Supple,with no thyromegaly, and non-tender. Trachea midline. No cervical or supraclavicular adenopathy noted. CARDIAC: Regular rate and rhythm. Normal S1, S2. No murmurs, rubs, or gallops. PULMONARY/CHEST: Lungs are clear to auscultation and percussion bilaterally. No wheezes, rhonchi, or crackles noted. No increased work of breathing. ABDOMINAL: Abdomen soft, non-tender, non-distended. No hepatomegaly. Normoactive bowel sounds in all four quadrants. No guarding, rebound. BACK: Straight and aligned. No CVA tenderness. Axial skeleton non-tender to percussion. BREAST: The left breast and right chest wall were examined in the seated and supine position. There is a 4-5 cm well-healed incision in the lower medial portion of the left breast and a well-healed 4-5 cm incision in the left axilla. There is firm scar tissue beneath the lumpectomy incision and no apparent masses or lesions. There is no drainage or wound dehiscence. No abnormality is seen on the right chest wall. EXTREMITIES: Full range of motion in all four extremities, with normal strength equally and symmetrically. No evidence of edema. No clubbing. SKIN: Skin is warm and dry. No rashes or lesions evident. NEUROLOGICAL EXAM: Alert and oriented x 3. Cranial nerves II through XII are grossly intact. No focal neurological deficit. Speech is fluent. There is no upper or lower extremity sensory deficit or motor deficit. Muscle strength is 5/5 in all muscle groups. Gait and posture are steady. PSYCHIATRIC: Appropriate mood and affect for the clinical situation. Imaging: As per HPI no new imaging to review Laboratory Data: no new labs to review Assessment: Nevin Joshi is a 67-year-old postmenopausal female diagnosed with stage IIA (pT2 N0 M0) grade 2 invasive ductal carcinoma (ER OK negative HER-2 overexpressed) of the right breast s/p modified radical mastectomy followed by [facility] chemotherapy and Herceptin times 1 year (2005) and now diagnosed with stage IA (pT1c pN0 (sn) Mx grade 1 invasive ductal carcinoma (ER >95%, OK >95%, Her2 1+ IHC) of the left breast status post lumpectomy and sentinel lymph node biopsy (11/09/2017). Oncotype score was found to be low at 6. I had a detailed discussion with the patient about the diagnosis of early stage breast cancer and treatment options. I explained to her that in general, based on meta-analysis data, the general 5-yr risk of a local recurrence is on the order of 26% and that radiation reduces this risk to around 7%. I also explained to her that the magnitude of this risk reduction translates into an overall survival benefit at 15 yrs. However, we also fully discussed that risks of recurrence may be lower in certain subgroups of women, particularly those that are older and have more favorable pathologic features. The CALGB 9343 study randomized women 70 yrs or older with clinical T1 tumors and clinically negative axilla to lumpectomy alone versus lumpectomy+radiation (the majority of women received anti- endocrine therapy in that group). Risks of local recurrence at 10 yrs were approximately 2% in the radiation group and 8% in the lumpectomy alone group. Furthermore, the [place] (PRIME-2) examined the exact same question in women that were 65 years or older with pathologic stage I- II (up to 3 cm), ER+, pathologically node negative (on SLNBx) invasive breast cancers. This study has shorter follow-up (5 yrs), but shows that the risk of local recurrence is 1.3% with radiation and 4.1% with lumpectomy alone this data is very similar to the 5 yr data from the CALGB 9343 study. In both studies, there was no difference in overall survival between the two groups. Therefore, while radiation significantly reduces the risk of a local recurrence, the absolute risk of recurrence in this population of women (older women, smaller tumors, ER+) is much lower than the general risk for younger women or those with higher risk features, and there is no survival advantage. I explained that if she decided to complete adjuvant radiation therapy that I would consist of a hypofractionated course of 4256 cGy in 16 fractions without a lumpectomy cavity boost. I explained what a course of breast radiation entails. Radiation proceeds over several week times and is delivered Monday through Monday, 5 days per week. The process for planning a radiation course including the need for CT simulation, placement of tattoos, generation of a virtual 3 dimensional conformal radiation therapy plan from the acquired CT images, and the need for verification of the computer generated plan prior to beginning treatment was explained. I discussed the rationale, risks and benefits of radiation therapy with the patient. The acute risks include, but are not limited to: fatigue, skin irritation including desquamation particularly along skin folds, breast pain or discomfort, and breast swelling. The long-term risks include, but are not limited to: residual hyperpigmentation or hypopigmentation (10%); skin telangectasias; radiation pneumonitis (<0.5%); lung scarring/fibrosis; breast fibrosis and change in breast contour with a 15-20% risk of poor cosmetic outcome; radiation-induced heart disease, particularly for left-sided breast cancers; shoulder stiffness or reduced ROM; lymphedema (1-2% increased risk above surgical risk); rib fracture (<1%); remote-risk of radiation-induced malignancy. I discussed that we would pursue options to maximally reduce heart dose including prone positioning and potentially DIBH if needed. At the end of the discussion, the patient had many questions all of which were thoroughly answered. Patient is planning to have Oncotype completed to determine if she would benefit from adjuvant chemotherapy, this was sent today. After our full discussion regarding the risks and benefits she would like to discuss with her health care technician tomorrow and will call with her final decision. If she decides to pursue radiation therapy then she will return for simulation on 01/04 with a goal to initiate adjuvant XRT by 8 weeks post op. The patient was in agreement with our plan and instructed to call with any further questions or concerns in the interim. Brendan Urias DO, MS Roller Shop Supervisor, Department of Radiation Oncology [facility] 01/02/18 2104 <Electronically signed by Brendan Urias DO> Date Brendan Urias DO CC: Campos Rodriguez MD; Joe Lopez MD Signed ONCOLOGY VISIT REPORT Observed: 01/02/2018 Status: F Source: [facility] 4:08 PM [facility] REPOSITORY [facility] [address] [place], [place] [address]paige [place] [address] OFFICE VISIT Date of Service: 01/02/18 1601 MR#: [id number] Acct: [id number] Name: NEVIN JOSHI Rep #: [id number] : 1950 From: Joe Lopez MD Age/Sex: 67/F Location: [facility]MD Status: Signed - Problem List (1) Carcinoma of lower-inner quadrant of left breast, estrogen receptor negative Status: Acute Qualifiers: Patient sex: female Qualified Code(s): C50.312 - Malignant neoplasm of lower-inner quadrant of left female breast; Z17.1 - Estrogen receptor negative status [ER-] (2) Cancer of right female breast Status: Chronic - Date of Service Date of Service:: 01/02/18 - Chief Complaint Breast cancer, new diagnosis - History of Present Illness 67-year-old female was metachronous breasts cancers: 1- Patient was Diagnosed with right breast invasive ductal cancer stage IIA (T2, N0, M0) grade 2, ER OK negative, HER-2 overexpressed in 2005. Patient is status post modified radical mastectomy July 2005 followed by [facility] chemo immune therapy (1 year) concluded September 2006 and she went on surveillance. 2-On screening September 2017 A suspicious abnormality in the contralateral breast (left) seen on screening mammogram and ultrasound October 02, 2017 biopsy showed Invasive ductal carcinoma, nuclear grade 1 , ER positive (95%) OK positive (95% ) and Her-2 not overexpressed (1+) On November 09, 2017 she underwent a left partial mastectomy with sentinel lymph node biopsy. Pathology reported: MICROSCOPIC DIAGNOSIS A. Left breast, lumpectomy: Invasive ductal carcinoma. See cancer checklist below. B. Left axillary contents, regional lymphadenectomy: Three out of three lymph nodes negative for carcinoma. See comment. AM:abel 11/15/17 COMMENT A. INVASIVE BREAST CANCER SUMMARY: Specimen: Partial breast Procedure: Excision with wire guidance Specimen integrity: Single intact specimen. 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 Distance from closest (inferior) margin 7 mm Lymph-Vascular invasion: Not identified Dermal lymph-vascular invasion: Not applicable Ductal carcinoma in situ (DCIS) - not present Lobular carcinoma in situ (LCIS) - not present Lymph nodes: Number of sentinel lymph nodes examined - 0 Total number of lymph nodes examined (sentinel and nonsentinel) - 3 No evidence of macrometastases, micrometastases or isolated tumor cells present. See specimen B. Microcalcifications present in both carcinoma and non-neoplastic tissue. Treatment effect - no known presurgical therapy. Additional pathologic findings fibrocystic change, adenosis with associated microcalcifications and focal intraductal hyperplasia without atypia. Changes of previous biopsy. Ancillary studies: Previously performed on same tumor ([id number] / [id number]). ER: Positive, <95%, strong OK: Positive, <95%, moderate Her2 gonzalez: negative (1+), IHC PATHOLOGIC STAGE: pT1c N0 Mx Oncotype DX on the left breast cancer low risk for recurrence (total score 6) - Past Medical/Social History Past Medical History Past Medical History: Heart disease Other Past Medical History: DVT ENLARGED THYROID Cancer: Breast cancer Past Surgical History Surgical: section,Cholecystectomy,Hysterectomy, Mastectomy Family History Paternal Past Medical History: Heart disease Maternal Past Medical History: Unknown Maternal History of Cancer: Colon cancer Social History Social History: No changes Smoking Status Never smoker Review of Systems Comment: No change, see my recent consult note of November 2017 Vital Signs Height 5 ft 5 in Weight: 95.799 kg Weight in Pounds 211.2 lbs BMI 34.5 Pulse Ox 98 - Physical Exam General: Alert, Oriented x3, No apparent distress, - - Overweight, ECOG 0-1 Assessment and Plan 67-year-old female with bilateral metachronous breasts cancers: 1. Invasive ductal cancer of the left breast stage IA (T1c, N0, M0) grade 1, ER/ OK positive, HER-2 not overexpressed. Oncotype DX score of 6 (low risk, 10-year risk of distant recurrence after tamoxifen adjuvant therapy of 5%) patient is status post partial mastectomy with sentinel lymph node biopsy October 2017. She is not a candidate for tamoxifen due to history of VTE. She is a candidate for 5 years adjuvant hormonal therapy with an aromatase inhibitor. She was recently seen by Dr. Urias regarding adjuvant radiation therapy to the remaining part of the left breast. She is to follow-up with him with decision making. 2. Invasive ductal cancer of the right breast stage IIa (T2, N0, M0) grade 2, ER/OK negative, HER-2 overexpressed. Patient is status post modified radical mastectomy followed by adjuvant TCH concluded September 2006. 3. 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 Patient was seen was her impression and plan discussed. Pros and cons of AI therapy discussed. She will schedule a formal teaching session was [employer] BEADING MACHINE TENDER about aromatase inhibitor therapy. She believed her last bone density study was in 2015, will obtain these reports for review. She was advised to start taking oral calcium and vitamin D supplement and will be assessed for additional therapy after an update of her bone density when due for 2018. Primary Care Provider: Referring Provider: 01/02/18 [id number] <Electronically signed by Joe Lopez MD> Date Joe Lopez MD Cosigner Signature: Date (if applicable) CC: CONSULTATION Observed: 12/11/2017 Status: F Source: [place] 4:50 PM [facility] REPOSITORY [facility] Medical Records Department [address] [address] Consultation 12/11/17 1636 MR#: [id number] Acct: [id number] Name: NEVIN JOSHI Rep #: [id number] : 1950 67 From: Brendan Urias DO PCP: Gunnar Garza MD Status: REG RCR Y Location: [facility] Date of Service: 12/11/17 Referring Provider: Dr. Lopez Diagnosis: Nevin Joshi is a 67-year-old postmenopausal female diagnosed with stage IIA (pT2 N0 M0) grade 2 invasive ductal carcinoma (ER OK negative HER-2 overexpressed) of the right breast s/p modified radical mastectomy followed by TCH chemotherapy and Herceptin times 1 year (2005) and now diagnosed with stage IA (pT1c pN0 (sn) Mx grade 1 invasive ductal carcinoma (ER >95%, OK >95%, Her2 1+ IHC) of the left breast status post lumpectomy and sentinel lymph node biopsy (11/09/2017). History of Present Illness: 2005: Patient was diagnosed with stage IIA (pT2 N0 M0) grade 2 invasive ductal carcinoma (ER OK negative HER-2 overexpressed) of the right breast and underwent modified radical mastectomy followed by TCH chemotherapy and Herceptin times 1 year. She did not receive any adjuvant radiation therapy 09/15/2017: Unilateral left digital diagnostic mammogram was performed at a six-month interval. This demonstrated a focal asymmetry characterized by obscured intermediate morphology at the mid breast depth at the 2 o'clock position upper outer quadrant measuring 13 x 10 x 10 mm in size. BI-RADS Category 0 recommend ultrasound. 09/15/2017: Ultrasound of the left breast was completed which demonstrated new solid suspicious appearing lesion with hypoechoic echotexture involving the mid breast depth at the 8 o'clock position measuring 3 x 4 mm in size with posterior shadowing. Simple benign-appearing cysts which are anechoic echotexture are seen throughout the left breast with the largest cyst in the mid breast depth at the 12 o'clock position upper breast between the inner and outer quadrants measuring 18 x 8 x 12 mm. Cysts in the 1 o'clock position likely correspond to the mammographic finding. BI-RADS Category 4. 10/02/2017: Ultrasound-guided core biopsy of the lesion was performed and pathology showed grade 2 invasive ductal carcinoma (ER >95%, OK >95%, Her2 1+ IHC). 11/09/2017: Patient underwent left breast lumpectomy and sentinel lymph node biopsy. Pathology demonstrated grade 1 invasive ductal carcinoma (ER >95%, OK >95%, Her2 1+ IHC) measuring 1.1 x 0.7 x 0.6 cm, no lymph vascular space invasion is identified, margins are uninvolved by invasive carcinoma with a distance to the closest margin being 7 mm from the end area margin, 0 of 3 sentinel lymph nodes contained metastatic carcinoma. pT1c p N0 (sn) Mx. 12/04/2017: Patient was evaluated by medical oncology and Oncotype DX was ordered to guide any chemotherapy recommendations. Recommended at least 5 years of adjuvant aromatase inhibitor therapy. Radiation Treatment History: None. No pacemaker or diagnosis of collagen vascular disease Interval History: Patient presents for initial consultation. She reports that over the last 4 weeks she has healed well from surgery. She initially had some drainage she thought from the lumpectomy area but this resolved fairly quickly over the first few days. She denies having any pain. She denies having any fatigue or unexpected weight loss. She is able to complete all activities of daily living without any difficulty. She denies having chest pain, shortness of breath, hemoptysis, or cough. She does report having a myocardial infarction in 2012 but reports that she had a heart cath completed which showed no stenosis and did not have any stents. She continues to follow with her health care technician and reports normal heart function. Patient is a non-smoker and has never been a smoker. She denies headaches, diplopia, bone pain, nausea/vomiting, or other problems at this time. 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 Hysterectomy in 1976. Has been completing regular annual mammograms. Denies any biopsies in the left breast previously. Denies hormone replacement therapy. Family History (Last Reviewed 12/04/17 @ 15:28 by Shantal Hines) Mother Colon cancer Father Heart disease Medical History (Last Reviewed 12/11/17 @ 15:24 by Radha Rodgers RN) Anxiety (Acute) Breast cancer (Acute) Cardiac murmur (Acute) DVT (deep venous thrombosis) (Acute) Enlarged thyroid (Acute) Heart disease (Acute) History of myocardial infarction (Acute) Surgical History (Last Reviewed 12/11/17 @ 15:24 by Radha Rodgers RN) HIP SURGIES (Acute) History of section (Acute) History of cholecystectomy (Acute) History of hysterectomy (Acute) History of mastectomy (Acute) S/P colonoscopy (Acute) s/p left breast lumpectomy with sentinel node (Acute 11/09/17) Social History - Tobacco Smoking Status Never smoker Passive smoke exposure: No Social History - Substance Drug use: No Caffeine use [drinks/day]: 2 Alcohol use: No Social History - Living Arrangements Patients Living Arrangements With Significant Other Home Medications Medication Instructions Recorded Atorvastatin Calcium [Lipitor] 40 mg PO QHS 06/02/16 Allergy/AdvReac Type Severity Reaction Status Date / Time adhesive tape Allergy Mild rash Verified 12/11/17 15:11 Health Maintenance Date of last colonoscopy: 01/11/14 I have reviewed the medical, surgical, and other pertinent history in details and have updated medication and allergy information in the electronic medical record. Review of Systems: A 12-point review of systems was completed and was negative except for what is noted in the HPI/Interval History and by the nurse. Height/Weight/BMI: Height: 5 ft 5 in Weight: 94.211 kg BMI: 34.5 Vital Signs Temperature 97.9 F 12/11/17 15:14 Temperature Source Oral 12/11/17 15:14 Pulse Rate 78 12/11/17 15:14 Physical Exam: ECO KARNOFSKY SCORE: 70-80% CONSTITUTIONAL: Well-developed, well-nourished, and in no apparent distress. HEENT: Mucous membranes moist. No evidence of thrush or lesions within the visualized oropharynx or oral cavity. No trismus. Pupils are equal, round, and reactive to light and accommodation. Extraocular movements are intact. Sclerae are anicteric. NECK: Supple,with no thyromegaly, and non-tender. Trachea midline. No cervical or supraclavicular adenopathy noted. CARDIAC: Regular rate and rhythm. Normal S1, S2. No murmurs, rubs, or gallops. PULMONARY/CHEST: Lungs are clear to auscultation and percussion bilaterally. No wheezes, rhonchi, or crackles noted. No increased work of breathing. ABDOMINAL: Abdomen soft, non-tender, non-distended. No hepatomegaly. Normoactive bowel sounds in all four quadrants. No guarding, rebound. BREAST: The left breast and right chest wall were examined in the seated and supine position. There is a 4-5 cm well-healed incision in the lower medial portion of the left breast and a well-healed 4-5 cm incision in the left axilla. There is firm scar tissue beneath the lumpectomy incision and no apparent masses or lesions. There is no drainage or wound dehiscence. No abnormality is seen on the right chest wall. BACK: Straight and aligned. No CVA tenderness. Axial skeleton non-tender to percussion. EXTREMITIES: Full range of motion in all four extremities, with normal strength equally and symmetrically. No evidence of edema. No clubbing. NEUROLOGICAL EXAM: Alert and oriented x 3. Cranial nerves II through XII are grossly intact. No focal neurological deficit. Speech is fluent. There is no upper or lower extremity sensory deficit or motor deficit. Muscle strength is 5/5 in all muscle groups. Gait and posture are steady. PSYCHIATRIC: Appropriate mood and affect for the clinical situation. Imaging: As per HPI Laboratory Data: no new labs to review Assessment: Nevin Joshi is a 67-year-old postmenopausal female diagnosed with stage IIA (pT2 N0 M0) grade 2 invasive ductal carcinoma (ER OK negative HER-2 overexpressed) of the right breast s/p modified radical mastectomy followed by [facility] chemotherapy and Herceptin times 1 year (2005) and now diagnosed with stage IA (pT1c pN0 (sn) Mx grade 1 invasive ductal carcinoma (ER >95%, OK >95%, Her2 1+ IHC) of the left breast status post lumpectomy and sentinel lymph node biopsy (11/09/2017). Clinically the patient has a pretty good performance status and completes all activities of daily living with no difficulty. She appears to be at her baseline state of health. Plan: I had a detailed discussion with the patient about the diagnosis of early stage breast cancer and treatment options. I explained to her that in general, based on meta-analysis data, the general 5-yr risk of a local recurrence is on the order of 26% and that radiation reduces this risk to around 7%. I also explained to her that the magnitude of this risk reduction translates into an overall survival benefit at 15 yrs. However, we also fully discussed that risks of recurrence may be lower in certain subgroups of women, particularly those that are older and have more favorable pathologic features. The CALGB 9343 study randomized women 70 yrs or older with clinical T1 tumors and clinically negative axilla to lumpectomy alone versus lumpectomy+radiation (the majority of women received anti- endocrine therapy in that group). Risks of local recurrence at 10 yrs were approximately 2% in the radiation group and 8% in the lumpectomy alone group. Furthermore, the (PRIME-2) examined the exact same question in women that were 65 years or older with pathologic stage I- II (up to 3 cm), ER+, pathologically node negative (on SLNBx) invasive breast cancers. This study has shorter follow-up (5 yrs), but shows that the risk of local recurrence is 1.3% with radiation and 4.1% with lumpectomy alone this data is very similar to the 5 yr data from the CALGB 9343 study. In both studies, there was no difference in overall survival between the two groups. Therefore, while radiation significantly reduces the risk of a local recurrence, the absolute risk of recurrence in this population of women (older women, smaller tumors, ER+) is much lower than the general risk for younger women or those with higher risk features, and there is no survival advantage. I explained that if she decided to complete adjuvant radiation therapy that I would consist of a hypofractionated course of 4256 cGy in 16 fractions without a lumpectomy cavity boost. I explained what a course of breast radiation entails. Radiation proceeds over several week times and is delivered Monday through Monday, 5 days per week. The process for planning a radiation course including the need for CT simulation, placement of tattoos, generation of a virtual 3 dimensional conformal radiation therapy plan from the acquired CT images, and the need for verification of the computer generated plan prior to beginning treatment was explained. I discussed the rationale, risks and benefits of radiation therapy with the patient. The acute risks include, but are not limited to: fatigue, skin irritation including desquamation particularly along skin folds, breast pain or discomfort, and breast swelling. The long-term risks include, but are not limited to: residual hyperpigmentation or hypopigmentation (10%); skin telangectasias; radiation pneumonitis (<0.5%); lung scarring/fibrosis; breast fibrosis and change in breast contour with a 15-20% risk of poor cosmetic outcome; radiation-induced heart disease, particularly for left-sided breast cancers; shoulder stiffness or reduced ROM; lymphedema (1-2% increased risk above surgical risk); rib fracture (<1%); remote-risk of radiation-induced malignancy. I discussed that we would pursue options to maximally reduce heart dose including prone positioning and potentially DIBH if needed. At the end of the discussion, the patient had many questions all of which were thoroughly answered. Patient is planning to have Oncotype completed to determine if she would benefit from adjuvant chemotherapy, this was sent today. After our full discussion regarding the risks and benefits she would like to complete adjuvant radiation therapy. I will have her return for CT simulation once a decision about chemotherapy is finalized with a goal to initiate adjuvant XRT by 8 weeks post op. The patient was in agreement with our plan and instructed to call with any further questions or concerns in the interim. Thank you for allowing me to participate in the management and care of your patient. If I may answer any questions in the interim, please do not hesitate to contact me at any time. Brendan Urias DO, MS Roller Shop Supervisor, Department of Radiation Oncology [facility] 12/11/17 4121 <Electronically signed by Brendan Urias DO> Date Brendan Cuevasigner Signature (if applicable): Date CC: Campos Rodriguez MD; Joe Lopez MD; GUNNAR GARZA; Gunnar Garza MD Signed ONCOLOGY VISIT REPORT Observed: 12/04/2017 Status: F Source: [place] 4:28 PM [facility] REPOSITORY [facility] [address] [place] [id number] OFFICE VISIT Date of Service: 12/04/17 1619 MR#: [id number] Acct: [id number] Name: NEVIN JOSHI Rep #: [id number] : 1950 From: Joe Lopez MD Age/Sex: 67/F Location: [facility] Status: Signed - Problem List (1) Cancer of right female breast Status: Chronic - Date of Service Date of Service:: 12/04/17 - Chief Complaint Breast cancer - History of Present Illness 67-year-old female was metachronous breasts cancers: 1- Patient was Diagnosed with right breast invasive ductal cancer stage IIA (T2, N0, M0) grade 2, ER OK negative, HER-2 overexpressed in 2005. Patient is status post modified radical mastectomy July 2005 followed by TCH chemo immune therapy (1 year) concluded September 2006 and she went on surveillance. 2-On screening September 2017 A suspicious abnormality in the contralateral breast (left) seen on screening mammogram and ultrasound October 02, 2017 biopsy showed Invasive ductal carcinoma, nuclear grade 1 , ER positive (95%) OK positive (95% ) and Her-2 not overexpressed (1+) On November 09, 2017 she underwent a left partial mastectomy with sentinel lymph node biopsy. Pathology reported: MICROSCOPIC DIAGNOSIS A. Left breast, lumpectomy: Invasive ductal carcinoma. See cancer checklist below. B. Left axillary contents, regional lymphadenectomy: Three out of three lymph nodes negative for carcinoma. See comment. AM:abel 11/15/17 COMMENT A. INVASIVE BREAST CANCER SUMMARY: Specimen: Partial breast Procedure: Excision with wire guidance Specimen integrity: Single intact specimen. Specimen size: 10 x 7.5 x 2 cm Specimen laterality: Left breast Invasive tumor size: 1.1 x 0.7 x 0.6 cm Tumor focality: Single focus of invasive carcinoma Macroscopic and Microscopic extent of tumor: Skin: Not present Nipple: Not present Skeletal muscle: Not present Histologic type of invasive carcinoma: Invasive ductal carcinoma Histologic Grade (Glo grade): Glandular/tubular differentiation score: 2 Nuclear pleomorphism score: 2 Mitotic count score: 1 Overall grade: Grade 1 (total score of 5) Margins: Uninvolved by invasive carcinoma. Distance from closest (inferior) margin 7 mm Lymph-Vascular invasion: Not identified Dermal lymph-vascular invasion: Not applicable Ductal carcinoma in situ (DCIS) - not present Lobular carcinoma in situ (LCIS) - not present Lymph nodes: Number of sentinel lymph nodes examined - 0 Total number of lymph nodes examined (sentinel and nonsentinel) - 3 No evidence of macrometastases, micrometastases or isolated tumor cells present. See specimen B. Microcalcifications present in both carcinoma and non-neoplastic tissue. Treatment effect - no known presurgical therapy. Additional pathologic findings fibrocystic change, adenosis with associated microcalcifications and focal intraductal hyperplasia without atypia. Changes of previous biopsy. Ancillary studies: Previously performed on same tumor ([id number] / [id number]). ER: Positive, <95%, strong OK: Positive, <95%, moderate Her2 gonzalez: negative (1+), IHC PATHOLOGIC STAGE: pT1c N0 Mx - Past Medical/Social History Past Medical History Past Medical History: Heart disease Other Past Medical History: DVT ENLARGED THYROID Cancer: Breast cancer Past Surgical History Surgical: section,Cholecystectomy,Hysterectomy, Mastectomy Family History Paternal Past Medical History: Heart disease Maternal Past Medical History: Unknown Maternal History of Cancer: Colon cancer Social History Social History: No changes Smoking Status Never smoker Review of Systems Constitutional:: Denies: Fever, Sweats, Weight loss, Appetite change, Chills Cardiovascular:: Denies: Chest pain, Palpitations, Dyspnea on exertion, Orthopnea, PND, Shortness of breath Respiratory: Denies: Cough, Hemoptysis, Shortness of Breath, Wheezing Gastrointestinal:: Denies: Abdominal pain, Nausea, Vomiting, Diarrhea, Constipation, Hematochezia Genitourinary: Denies: Dysuria, Hematuria, 15, Flank pain Musculoskeletal:: Denies: Back pain, Myalgia, Arthralgia Skin: Denies: Rash, Skin Changes, Wounds Neurological:: Denies: Headache, Dizziness, Visual changes, Tinnitus, Hearing loss Psychiatric: Denies: Anxiety, Depression, Homicidal Ideations, Suicidal Ideations Comment: Lumpectomy incision still healing with some serous discharge. Vital Signs Height 5 ft 5 in Weight: 94.166 kg Weight in Pounds 207.6 lbs Pulse Ox 96 - Physical Exam General: Alert, Oriented x3, No apparent distress, - - Overweight ECOG 0-1 Assessment and Plan 67-year-old female with bilateral metachronous breasts cancers: 1. Invasive ductal cancer of the left breast stage IA (T1c, N0, M0) grade 1, ER/ OK positive, HER-2 not overexpressed. Patient is status post partial mastectomy with sentinel lymph node biopsy October 2017. Advice Oncotype DX testing to guide further systemic therapy. Patient is at least a candidate for 5 years of adjuvant aromatase inhibitor therapy. Will refer to radiation oncology consultation regarding the role of adjuvant radiation therapy (For women 65 years old with node-negative, hormone receptor- positive primary tumors up to 3 cm for whom endocrine therapy is planned, RT may reasonably be excluded). 2. Invasive ductal cancer of the right breast stage IIa (T2, N0, M0) grade 2, ER/OK negative, HER-2 overexpressed. Patient is status post modified radical mastectomy followed by adjuvant TCH concluded September 2006. 3. 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 Patient was seen was her impression and plan discussed. Primary Care Provider: Referring Provider: 12/04/17 [id number] <Electronically signed by Joe Lopez MD> Date Joe Lopez MD Cosigner Signature: Date (if applicable) CC: SURGERY VISIT REPORT Observed: 11/24/2017 Status: F Source: [place] 9:44 AM [facility] REPOSITORY [facility] [address] [place] [address] [address] [place] [address] OFFICE VISIT Date of Service: 11/16/17 MR#: [id number] Acct: [id number] Name: NEVIN JOSHI Marine Rep #: [id number] : 1950 Provider: Campos Rodriguez MD Age/Sex: 67/F Location: [facility] Status: Signed Intake Intake Visit Reasons: 11/09 DP Lumpectomy Chief Complaint: Breast cancer, new diagnosis Hotel Guest Service Agent Required: No Is patient in pain?: No Allergies adhesive tape Allergy (Mild, Verified 11/16/17 15:33) rash Medications Aspirin [Aspir-Low] 81 mg PO DAILY 06/02/16 [History Confirmed 11/16/17] Atorvastatin Calcium [Lipitor] 40 mg PO QHS 06/02/16 [History Confirmed 11/16/17] Lisinopril [Prinivil] 10 mg PO DAILY 06/02/16 [History Confirmed 11/16/17] Metoprolol Tartrate 12.5 mg PO BID 06/02/16 [History Confirmed 11/16/17] Warfarin [Coumadin (PBKC)] 6 mg PO DAILY 06/02/16 [History Confirmed 11/16/17] Enoxaparin Sodium [Lovenox] 100 mg SQ BID 11/06/17 [History Confirmed 11/16/17] Oxycodone HCl/Acetaminophen [Percocet 5/325] 1 - 2 tab PO Q4H PRN PRN 4 Days #30 tab 11/09/17 [Rx Confirmed 11/16/17] Oxycodone HCl/Acetaminophen [Percocet 5/325] 1 - 2 tab PO Q4H PRN PRN 4 Days #30 tab 11/10/17 [Rx Confirmed 11/16/17] PFSH Medical History Anxiety (Acute) Breast cancer (Acute) Cardiac murmur (Acute) DVT (deep venous thrombosis) (Acute) Enlarged thyroid (Acute) Heart disease (Acute) History of myocardial infarction (Acute) Surgical History HIP SURGIES (Acute) History of section (Acute) History of cholecystectomy (Acute) History of hysterectomy (Acute) History of mastectomy (Acute) S/P colonoscopy (Acute) s/p left breast lumpectomy with sentinel node (Acute 11/09/17) Family History Mother Colon cancer Father Heart disease Social History Smoking Status: Never smoker HPI HPI HPI: NEVIN JOSHI, is a 67 F who presents to the office today for postoperative evaluation from a lumpectomy and sentinel lymph node biopsy completed on 11/09/2017. The lumpectomy showed invasive ductal carcinoma. 1.1 cm in size single focus identified. Margins were uninvolved and the closest margin I have was 7 mm. 3 out of 3 lymph nodes were negative for carcinoma. It was ER positive strongly and HER-2/gonzalez negative. Exam Chest Other: Incisions are healing well there is no signs of any infections. I do not feel a seroma. Assessment AND Plan Problems 1. Aftercare Z51.89 Plan Patient will now follow back up with oncology. I believe that it would be prudent for her to start her radiation therapy in approximately 1 month. I will see her back after her radiation therapy. Coding Level of Care Code Global Post Op Diagnoses Aftercare Z51.89 11/24/17 0944 <Electronically signed by Campos Rodriguez MD> Date [facility] Signature: Date (if applicable) CC: KEENAN MICHELE; Joe Lopez MD; Gunnar Garza MD OPERATIVE REPORT Observed: 11/10/2017 Status: F Source: [place] 9:51 AM [facility] REPOSITORY [facility] Medical Records Department [address] [place] [address] Operative Report 11/09/17 1028 MR#: [id number] Acct: [id number] Name: NEVIN JOSHI Rep #: [id number] : 1950 67 From: Campos Rodriguez MD PCP: Gunnar Garza MD Status: ADM JOHNNY Y Location: [place] [id number] Problem List (1) Carcinoma of lower-inner quadrant of left breast, estrogen receptor negative Status: Acute Qualifiers: Patient sex: female Qualified Code(s): C50.312 - Malignant neoplasm of lower-inner quadrant of left female breast; Z17.1 - Estrogen receptor negative status [ER-] Report of Operation Date of Procedure: 11/09/17 Pre-Operative Diagnosis: c50.312 left female breast cancer lower inner quadrant Post-Operative Diagnosis: Same Surgery/Procedure Performed:: Ultrasound-guided wire localization of breast cancer lower inner quadrant. Injection of 5 cc of Lymphazurin blue. Lumpectomy. Mcdaniels lymph node biopsy Type of Anesthesia:: General Anesthesiologist: Nilo Neal Description of Procedure: Patient was brought in the operating room. Placed in the supine position. Under excellent LMA anesthesia by ultrasound the lower inner quadrant of the left breast identified the lesion I prepped the skin with alcohol. Under ultrasound guidance and placed a Kopan's wire through the lesion. I then injected 5 cc of Lymphazurin blue, regularly around the nipple. Breast was massaged for 5 minutes. And then it was sterilely prepped and draped in the usual fashion. A little inner quadrant of the left breast incision was made elliptically around the previous biopsy site. He is a plasma blade got all the way around the lesion had excellent hemostasis was sent to pathology and I had good margins around this very small cancerous lesion. The use of electrocautery and the wound to get good hemostasis and then packed the wound and then went into the axilla. I made an incision in the axilla and dissected down to the clavipectoral fascia identified the blue lymph node and use the neoprobe as well. Blue lymph node had a count of 17 out of the axilla. I used the neoprobe to try to identify any other lesions I did not hear any other lesions noted I see any other lymph nodes other than the blue lymph node in the 2 surrounding smaller lymph nodes that were all sent out. This came back as negative. I irrigated out the axilla. Chest wound was closed with deep dermals of 3-0 Vicryl in a running 4-0 Monocryl axilla was closed with a subcu of 2-0 Vicryl deep dermals of 3-0 Vicryl in a running 4-0 Monocryl. Dermabond was applied. Sterile dressings were applied. The patient tolerated the procedure well. - Admit VTE Documentation VTE Present on Admission: No VTE Mechan Device Prophylaxis: SCD's VTE Pharm Prophylaxis ordered?: No 11/10/17 0951 <Electronically signed by Campos Rodriguez MD> Date Capmos Rodriguez MD CC: Campos Rodriguez MD; Gunnar Garza MD Signed DISCHARGE INSTRUCTION Observed: 11/10/2017 Status: F Source: [place] 7:06 AM [facility] REPOSITORY [facility] Medical Records Department [address] [place] [address] Instructions for Home/Discharge Instructions 11/10/17 0705 MR#: [id number] Acct: [id number] Name: NEVIN JOSHI Rep #: [id number] : 1950 67 From: Campos Rodriguez MD PCP: Gunnar Garza MD Status: ADM JOHNNY Discharge Diet: No Restrictions Discharge Activity: May Not Drive - for 2-3 days or while taking narcotic pain meds. May shower in (days): 1 Lifting Restrictions: 10 pounds for 1 week. Call your doctor if your incision/area has: Continuous Slow Oozing, Sudden Increased Bleeding Call your doctor if you observe: Fever of 101 or Higher Suture Line Care: Avoid Pulling/Pushing, Avoid Pinching/Bending Remove Dressing in (days):: 1 - Remove bulky dressing tomorrow. May leave any opsite dressing for 3-4 days. Keep dressing in place until your follow-up appointment. Additional Dressing/Incision Instructions:: Remove bulky dressing tomorrow. May leave any opsite dressing for 3-4 days. Keep dressing in place until your follow-up appointment. Allergies/Adverse Reactions: Allergies adhesive tape Allergy (Mild, Verified 11/06/17 08:59) rash Medications to take at Discharge Aspirin [Aspir-Low] 81 mg PO DAILY 06/02/16 Atorvastatin Calcium [Lipitor] 40 mg PO QHS 06/02/16 Lisinopril [Prinivil] 10 mg PO DAILY 06/02/16 Metoprolol Tartrate 12.5 mg PO BID 06/02/16 Warfarin [Coumadin (PBKC)] 6 mg PO DAILY 06/02/16 Enoxaparin Sodium [Lovenox] 100 mg SQ BID 11/06/17 Oxycodone HCl/Acetaminophen [Percocet 5/325] 1 - 2 tab PO Q4H PRN PRN 4 Days #30 tab 11/09/17 The following prescriptions were given: Oxycodone HCl/Acetaminophen [Percocet 5/325] 1 - 2 tab PO Q4H PRN PRN 4 Days #30 tab PRN Reason: Pain Primary Care Physician: Gunnar Garza MD [Primary Care Provider] - 11/10/17 0706 <Electronically signed by Campos Rodriguez MD> Date Campos Rodriguez MD CC: Gunnar Garza MD PROTIME W/INR Collected: 11/09/2017 Status: F Source: [place] 8:28 AM [facility] REPOSITORY TYPE CODE TESTS RESULT OUT OF RANGE REFERENCE UNITS LAB L9200.1001 11.9-14.4 SEC Normal PROTIME ISTAT 12.3 Result Comment: Reference Range 11.9 - 14.4 LAB L9200.2000 Normal INR ISTAT 1.00 Result Comment: Critical Value > 3.5 Performed By: #### L9200.0000 #### [facility] Laboratory Point of Care [address] [place] [address] LYMPH NODE INJECTION Observed: 11/09/2017 Status: F Source: [place] ONLY 7:11 AM [facility] REPOSITORY [facility] Imaging Services [address] [place] [address] Lymph Node Injection Only MR#: [id number] Acct: [id number] Name: NEVIN JOSHI Rep #: [id number] : 1950 F 67 From: Cipriano Bryant MD PCP: Gunnar Garza MD Status: [facility] Study: Lymph Node Injection Only Date of Exam: 11/09/17 Exam# [id number] Ordering Dr: Campos Rodriguez MD PROCEDURE: NUCLEAR MEDICINE Injection Mcdaniels Node - LEFT breast(s). REASON FOR EXAM: Female, 67 years old. Mcdaniels node imaging for left breast cancer. TECHNIQUE: Mcdaniels node localization using radionuclide methods of the LEFT breast(s) was performed following subcutaneous administration of 1.1 mCi of of sulfur colloid Tc-99m. FINDINGS: 1.1 mCi of technetium labeled sulfur colloid was injected at the previous biopsy site in 4 equal aliquots. NM/Lymph Node Injection Only IMPRESSION: Injection of 1.1 mCi of technetium sulfur colloid for sentinel node imaging. Electronically Signed: Cipriano Bryant MD at 10:11 EDT Tel [phone], Service support , CC: Campos Rodriguez MD; Gunnar Garza MD Lumber Sticker: Signed BREAST MASTECTOMY Observed: 11/09/2017 Status: F Source: [place] (CHOOSE SIDE 12:00 AM [facility] REPOSITORY Patient: NEVIN JOSHI : 1950 (67/F) Acct Num: [id number] Phys: Michael SALVADOR,Campos Unit Num: [id number] Loc: MS2 [id number] Specimen: [id number] Received: 11/09/17 - 1108 Spec Type: BREAST TISSUES 1 TISSUES: A. Left breast, NOS B. Axillary lymph node, NOS ADDENDUM Addendum Number 1 An order for Oncotype testing was received from Dr. Lopez. This necessitated case review, block and slide selection by pathologist at [facility]. Breast Cancer Recurrence Score = 6 Results of the complete Oncotype testing ([employer] report) are viewable in EMR under: Reports - Pathology - Lab Pathology Report, Scanned. Addendum Signed [facility] 01/11/18 <signature on file> COMMENT A. INVASIVE BREAST CANCER SUMMARY: Specimen: Partial breast Procedure: Excision with wire guidance Specimen integrity: Single intact specimen. 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 Distance from closest (inferior) margin 7 mm Lymph-Vascular invasion: Not identified Dermal lymph-vascular invasion: Not applicable Ductal carcinoma in situ (DCIS) - not present Lobular carcinoma in situ (LCIS) - not present Lymph nodes: Number of sentinel lymph nodes examined - 0 Total number of lymph nodes examined (sentinel and nonsentinel) - 3 No evidence of macrometastases, micrometastases or isolated tumor cells present. See specimen B. Microcalcifications present in both carcinoma and non- neoplastic tissue. Treatment effect - no known presurgical therapy. Additional pathologic findings fibrocystic change, adenosis with associated microcalcifications and focal intraductal hyperplasia without atypia. Changes of previous biopsy. Ancillary studies: Previously performed on same tumor ([id number] / [id number]). ER: Positive, <95%, strong OK: Positive, <95%, moderate Her2 gonzalez: negative (1+), IHC PATHOLOGIC STAGE: pT1c N0 Mx The above summary is in compliance with [employer] [place] [employer] (CAP) Cancer Protocols Checklist and [place] Joint Committee on Cancer (AJCC), Staging Manual, 8th Ed. B. Immunohistochemistry ([id number]) supports the above diagnosis. Case has been reviewed in consultation with Dr. Moon who concurs with the above diagnosis. IDC:SJ FROZEN SECTION DIAGNOSIS B. Left axillary sentinel lymph nodes, biopsy: Three out of three lymph nodes with no evidence of carcinoma. AM:abel 11/09/17 GROSS DESCRIPTION A - Received fresh for OR consultation labeled with the patient's name is a specimen designated left breast mass. The specimen consists of an oriented fragment of chicas-yellow fibrofatty tissue measuring 10 x 7.5 x 2 cm and containing a wire. The specimen is differentially inked as follows: superior blue, inferior yellow, lateral orange, medial red, posterior black and inferior green. Sections reveal a 5 mm biopsy cavity with embedded metallic tracer. The biopsy cavity is located 7 mm from its closest (inferior) margin of excision. The remainder of the breast tissue is chicas-yellow and contains occasional fibrous streaks. No mass lesions are identified grossly. Solar Crew Member sections are submitted in ten cassettes as follows: 1 AND 2 biopsy cavity and adjacent surrounding tissue, 3 AND 4 perpendicular inked margins, 5-10 customer service representative sections of uninvolved breast parenchyma. / AM: abel 11/10/17 B - Received fresh for frozen section consultation labeled with the patient's name is a specimen designated sentinel lymph nodes/axillary contents. The specimen consists of three pieces of chicas-yellow fibrofatty tissue measuring 4 x 3.5 x 1 cm. Dissection reveals three nodules resembling lymph nodes ranging in size from 0.5 to 1.2 cm. The nodules are submitted in their entirety for frozen section consultation in two blocks. / AM: 11/09/17 TC:0 CPT: 19331, 52135, 54974, 67146 x2 HEADER OPERATION: Breast lumpectomy, SN, possible axillary dissection PRE-OP DIAGNOSIS: Malignant neoplasm of lower-inner quadrant of left breast, ER positive TISSUE SUBMITTED: A Left breast mass collected at 1100, sent for FS at 1104, single long suture medial, wire lateral, double long suture inferior, B Axillary contents collected at 1117, sent for FS at 1120 MICROSCOPIC DESCRIPTION Slides are reviewed. MICROSCOPIC DIAGNOSIS A. Left breast, lumpectomy: Invasive ductal carcinoma. See cancer checklist below. B. Left axillary contents, regional lymphadenectomy: Three out of three lymph nodes negative for carcinoma. See comment. AM: 11/15/17 Signed [facility] 11/15/17 <signature on file> Performed By: #### PBREAST #### [facility] [address] [place] [address]. [place], [address] IMMUNOHISTOCHEMISTRY Observed: 11/09/2017 Status: F Source: [place] 12:00 AM [facility] REPOSITORY Patient: NEVIN JOSHI : 1950 (67/F) Acct Num: [id number] Phys: Michael SALVADOR,Campos Unit Num: [id number] Loc: MS2 [id number] Specimen: [id number] Received: 11/15/17 - 1003 Spec Type: IMMUNO TISSUES TISSUES: B. Axillary lymph node, NOS SPECIMEN INFORMATION: Tissue Source: B Axillary contents Clinical Info: Malignant neoplasm of lower-inner quadrant left breast, ER positive Specimen Number: [id number] B1, B2 CPT code: 82330, 93956 x3 METHODOLOGY: Deparaffinized sections of prefer/formalin-fixed tissue or PAP/DQ stained slides are incubated with monoclonal/polyclonal antibodies/oligonucleotide probes. Localization is made via biotin free immunoperoxidase method. Appropriate controls are performed and reacted as expected. Results on target cell population are indicated in the following table: RESULTS: ANTIBODY / CLONE RESULT Block B1 CK7 (OV-TL12/30) negative AE1-3 (AE1/AE3/PCK26) negative Block B2 CK7 (OV-TL12/30) negative AE1-3 (AE1/AE3/PCK26) negative These tests were developed and their performance characteristics determined by [facility]. They may not have been cleared or approved by the U.S. Food and Drug Administration. The FDA has determined that such clearance or approval is not necessary. INTERPRETATION: B. Left axillary sentinel lymph nodes, biopsy: Three out of three lymph nodes negative for carcinoma. AM:abel 11/16/17 PHYSICIAN AND INSTITUTION [address] [address] Signed [facility] 11/16/17 <signature on file> Performed By: #### PIMM #### [facility] [address] [place] [address]. [place], [place], [address] EMERGENCY REPORT Observed: 11/08/2017 Status: F [facility] EMERGENCY ROOM REPORT NAME ACCOUNT SEX AGE ADMIT DISCHARGE PT MED. RECORD# NUMBER DATE DATE TYPE NEVIN JOSHI [id number] F 67 11/05/17 11/05/17 3 [place]IX[place] [id number] ROOM: ER DATE OF : 1950 DICTATING PHYSICIAN: Tree Raymundo ADDENDUM: DIAGNOSTIC DATA: The patient did have some blood work done here today. Her white count was 7.0, hemoglobin 14.5, hematocrit 41.6, platelet count 195,000. Her PT was 38.7, INR 3.5. Sodium 139, potassium 3.3, chloride 104, CO2 25.3, BUN 8, creatinine 0.7, glucose 126. Liver functions were all within normal limits. Anion gap was 13. EMERGENCY DEPARTMENT COURSE AND TREATMENT: The patient had forgotten to take her metoprolol evening dose, so I gave it to her here at 1:45 a.m., which is metoprolol 12.5 mg p.o. Her blood pressure came down somewhat, but still remained high, so we gave her Catapres 0.1 mg p.o. and final blood pressure is 137/100, so it did improve. It is not as low as I would like to see it especially for that bottom number, but I did give her a prescription for Catapres 0.1 mg 1 p.o. every day, dispensed #10 with no refill, and I did ask her to discuss all this with Dr. Garza on Monday. DIAGNOSES: 1. Left anterior epistaxis. 2. Hypertension. PLAN/DISPOSITION: I spoke with Dr. Garcia, he was superintendent production for Dr. Garza. The patient really does not want to start the Lovenox today like she was scheduled. Dr. Garcia did not have a problem with that since her INR is 3.5 and quite possibly we will hold it on Monday as well, but he did ask that she call the office on Monday and update them on her condition and then they will decide. The patient did verbalize understanding of this, so no Lovenox for Monday and then talk to Dr. Garza on Monday. I also spoke with Dr. Vilchis from [facility]. He feels that since the bleeding was going up through the left tear duct that this is an anterior bleed and will not require surgery. It is not a posterior bleed. I did blow up the balloon today on the Rhino Rocket in her left naris. I only got about 2 mL in there before she started to have a lot of pain, so I stopped, but I think this will help curtail any further epistaxis bleeding. She has already stopped her Coumadin like she was instructed by her family doctor. She took her last dose on Monday. So between that and the packing, I think her bleeding will completely stop. It is much slower than it was when I saw her last night. I did ask her to follow up with Dr. Vilchis and have the packing taking out. I had spoke with Dr. Garcia, and he had agreed because they had cauterized her nose in the office and then I put the packing in Page 1 of 2 [facility] Emergency Room Report here, and since she is still having some bleeding the next step would be to have ear, nose, and throat see her. The patient knows she is to call Dr. Vilchis's office on Monday morning and arrange follow up on Monday or Monday to have the packing removed. The patient was discharged in improved, clinically stable condition. Nursing notes reviewed. Dictated By: Tree Raymundo DO 11/05/17 05:18 JOB #: [id number] Transcribed By: am 11/06/17 12:02 Electronically signed by: E-Sign: Dr. Tree Raymundo D.O. 11/08/17 16:06 Page 2 of 2 NEVIN JOSHI Emergency Room Report EMERGENCY REPORT Observed: 11/08/2017 Status: F Source: [facility] [place] 4:05 PM [facility] EMERGENCY ROOM REPORT NAME ACCOUNT SEX AGE ADMIT DISCHARGE PT MED. RECORD# NUMBER DATE DATE TYPE NEVIN JOSHI [id number] F 67 11/05/17 11/05/17 3 DIXIE [id number] ROOM: ER DATE OF : 1950 DICTATING PHYSICIAN: Tree Raymundo TIME SEEN: 1:20 a.m. HISTORY OF PRESENT ILLNESS: This is a 67-year-old white female who complains of a continued left-sided nosebleed. She had been seen at her family doctor's office on Monday, and he had cauterized the left naris with a silver nitrate stick. She continued to have more bleeding, and I saw her last night and put a Rhino Rocket in her left naris. She had a lot of pain with that Rhino Rocket so I did not inflate the balloon, but it did seem to fit pretty tight. Tonight, she had a little bit of blood come up into her tear duct in her left eye, and she had noted some blood in her left eye and became very concerned about that. She still continues to have some bleeding down the back of her throat, although it is not near as much bleeding as it was earlier before the packing. She is on Coumadin. She recently had her INR checked, and it was 3. She is scheduled for a breast lumpectomy this coming so she is supposed to stop the Coumadin tonight, which she did do, but then she was supposed to start Lovenox on Monday morning and then take the Lovenox up until Monday and then stop it for her surgery on . PAST MEDICAL HISTORY: Hypertension, breast cancer in the past, and previous blood clots. PAST SURGICAL HISTORY: Previous hip surgery, heart catheterization, cholecystectomy, hysterectomy and mastectomy. ALLERGIES: No known drug allergies. SOCIAL HISTORY: The patient is not a smoker. She denies any use of alcohol or illicit drugs. She lives at home with her . REVIEW OF SYSTEMS: The patient denies any chest pain, shortness of breath, cough, sputum, wheezing, abdominal pain, nausea, vomiting, diarrhea, constipation, melena, hematochezia, headache, numbness, unsteady gait, weakness, neck or back pain, joint pain, skin rash or swelling, hives, hay fever, or swollen glands. Further review of systems is negative with the exception that the patient does complain of left epistaxis. PHYSICAL EXAMINATION: The patient is alert and oriented x3. She appears somewhat anxious but pleasant and cooperative. HEENT: Pupils are equal and reactive Page 1 of 2 NEVIN JOSHI Emergency Room Report to light. Red reflexes are intact bilaterally. Extraocular muscles are intact. No conjunctival injection. Presently, I note no blood in or around the left eye. Ears: TMs are intact bilaterally. No erythema noted. Nose exhibits some Rhino Rocket packing in the left naris. I do not see any bleeding about the packing. Mouth: Mucous membranes are moist. There is a very scant amount of blood in the posterior pharynx. Uvula is midline and elevates. Neck is supple. Trachea is midline. No JVD or lymphadenopathy. No posterior cervical tenderness. No nuchal rigidity. Lungs are clear to auscultation in all lung barron. No adventitious sounds are noted. No accessory muscle use. CV: Heart rate and rhythm are regular without murmur. Abdomen is soft and nontender with normoactive bowel sounds x4 quadrants. No guarding or rigidity. No rebound. No palpable abdominal masses. No hepatosplenomegaly. Back exhibits no midline or paraspinal region tenderness. No increased paraspinal muscle rigidity. Negative Ernie's sign. Extremities: No edema or cyanosis. Peripheral pulses are intact. No motor or sensory deficits are noted. 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 Skin is warm and dry. No diaphoresis or rash. EMERGENCY DEPARTMENT COURSE AND TREATMENT: Presently, at this point, I do not see a lot of bleeding. She does have a little bit of bleeding down the back of her throat. She did show me a washcloth that she has been spitting into, and there was a little bit more blood on that. She is very concerned about this continued nosebleed, especially since she had some blood in her left tear duct. Presently, I am going to obtain some screening bloodwork here; CBC, chemistry and a PT-INR, and then I will discuss the case with ENT and then reevaluate. Dictated By: Tree Raymundo DO 11/05/17 01:49 JOB #: [id number] Transcribed By: ryan 11/06/17 09:02 Electronically signed by: E-Sign: Dr. Tree Raymundo D.O. 11/08/17 16:05 Page 2 of 2 [facility] DIX[facility] Emergency Room Report EMERGENCY REPORT Observed: 11/08/2017 Status: F Source: [facility] 4:05 PM [facility] EMERGENCY ROOM REPORT NAME ACCOUNT SEX AGE ADMIT DISCHARGE PT MED. RECORD# NUMBER DATE DATE TYPE NEVIN JOSHI [id number] F 67 11/05/17 11/05/17 3 DIX[place] [id number] ROOM: ER DATE OF : 1950 DICTATING PHYSICIAN: Tree Raymundo ADDENDUM EMERGENCY DEPARTMENT COURSE AND TREATMENT: I did note that the patient's blood pressure was running high here. She did not take her evening dose of metoprolol, which is 12.5 mg p.o., so I will give that to her here and see if that helps with her blood pressure. Dictated By: Tree Raymundo DO 11/05/17 01:50 JOB #: [id number] Transcribed By: ryan 11/06/17 08:58 Electronically signed by: E-Sign: Dr. Tree Raymundo D.O. 11/08/17 16:05 Page 1 of 1 NEVIN JOSHI Emergency Room Report EMERGENCY REPORT Observed: 11/08/2017 Status: F Source: [place] 4:04 PM [facility] EMERGENCY ROOM REPORT NAME ACCOUNT SEX AGE ADMIT DISCHARGE PT MED. RECORD# NUMBER DATE DATE TYPE NEVIN JOSHI [id number] F 67 11/04/17 11/04/17 3 DIXIE [id number] ROOM: ER DATE OF : 1950 DICTATING PHYSICIAN: Tree Raymundo TIME SEEN: 5:30 a.m. CHIEF COMPLAINT/HISTORY OF PRESENT ILLNESS: This is a 67-year-old white female complaining of some left-sided nose bleed that started yesterday. The bleeding would come off and on throughout the day, especially if she would stand up and walk around. She went and saw Dr. Garza in the office yesterday, and he did cauterize the left nares with a silver nitrate stick. It seemed to help for awhile but then late last night it started to bleed again, and then she woke up this morning and it was bleeding heavily enough that she could feel blood running down the back of her throat. Patient is on Coumadin for previous blood clots. She is scheduled for a lumpectomy this coming , so she is to stop the Coumadin and then start Lovenox on Monday morning, and she is to take the Lovenox up until Monday and then stop for her surgery on . PAST MEDICAL HISTORY: Hypertension, breast cancer in the past, previous blood clots. PAST SURGICAL HISTORY: Includes previous hip surgery, heart catheterization, cholecystectomy, hysterectomy, mastectomy. ALLERGIES: No known drug allergies. SOCIAL HISTORY: She is not a smoker. Denies the use of alcohol or illicit drugs. She lives at home with her . REVIEW OF SYSTEMS: The patient denies any chest pain, shortness of breath, cough, sputum, wheezing, abdominal pain, nausea, vomiting, diarrhea, constipation, melena, hematochezia, headache, numbness, unsteady gait, weakness, neck or back pain, joint pain, skin rash or swelling, hives, hay fever or swollen glands. Does complain of left nose bleed. Further review of systems is negative. PHYSICAL EXAMINATION: Vital Signs: Blood pressure 204/109, pulse 80, respirations 16, temperature 98.2, pulse oximetry 95%, weight 207 pounds. Patient is alert and oriented x 3. She presently appears in no acute distress. HEENT: Head appears atraumatic. Pupils are equal and reactive to light. Red reflex is intact bilaterally. Extraocular muscles are intact. No conjunctival injection. No scleral icterus or lid Page 1 of 3 NEVIN JOSHI Emergency Room Report edema. Nose does exhibit some left-sided epistaxis. There are some clots in the left nares with a little bit of active bleeding and I do note some blood clots in the posterior pharynx when look in her mouth. Uvula is midline and elevates. There is no pharyngeal erythema. Neck is supple. Trachea is midline. No JVD or lymphadenopathy. No posterior cervical tenderness. No nuchal rigidity. Lungs are clear to auscultation in all lung barron. No adventitious sounds noted. No accessory muscle use. CVS: Heart rate and rhythm regular without murmur. Abdomen is soft and nontender with normoactive bowel sounds x4 quadrants. No guarding or rigidity. Extremities: No edema or cyanosis. Peripheral pulses are intact. No motor or sensory deficits noted. 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 Skin is warm and dry. No diaphoresis or rash. Neurologic exam shows the patient to be alert and oriented x4. No motor or sensory deficits are noted. Normal speech. EMERGENCY DEPARTMENT COURSE AND TREATMENT: I did look in the left nares and I could see where Dr. Garza had done the silver nitrate cautery, but there was still some bleeding in the left nares. I placed a Rhino Rocket nasal packing into the left nares. It was a tight fit so I did not inflate the balloon. She seemed to have a lot of pain when I inserted it, but once we got the balloon and the Rhino Rocket in there she has not had a lot of pain, but I did not inflate the balloon because it seems like it was a pretty tight fit. So far, I have been watching her in the emergency room and she has had no further epistaxis. I did reexamine the posterior pharynx and I see no blood in the posterior pharynx at all now. I advised her to leave the packing in and then to call Dr. Jose Manuel Vilchis's office Monday morning and see if he can see her in the office either Monday or Monday, and he can remove that packing. That way if it starts to bleed again when he removes the packing, he can address the problem. At this point, she was asking me what she should do about her medications, but I told her unless she talked to Dr. Garza I would go ahead and just continue to make the medication switch as was originally planned on. She can call Dr. Garza later today and see if he is okay with her not taking the Lovenox, but we certainly do not want her getting a blood clot, so I asked her to speak with him about that. Otherwise, I would stop the Coumadin tonight like planned and start the Lovenox on Monday like planned. Hopefully, if she keeps the packing in for a couple of days it will control the nosebleed, even with her being on the Lovenox. DIAGNOSIS: Left anterior epistaxis. PLAN/DISPOSITION: Patient was discharged in an improved and clinically stable condition. If she has any further bleeding or other problems, return to the emergency department. Nurses notes were reviewed. Dictated By: Tree Raymundo DO 11/04/17 06:19 JOB #: [id number] Transcribed By: antonia 11/04/17 15:57 Page 2 of 3 NEVIN JOSHI Emergency Room Report Electronically signed by: E-Sign: Dr. Tree Raymundo D.O. 11/08/17 16:04 Page 3 of 3 NEVIN JOSHI Emergency Room Report CBC Collected: 11/05/2017 Status: F Source: [facility] 1:50 AM [facility] REPOSITORY TYPE CODE TESTS RESULT OUT OF RANGE REFERENCE UNITS LAB CBC(LOINC) CBC Result Comment: CBC-COMPLETE BLOOD COUNT LAB WBC(LOINC) 4.5 - 10.8 x 10EE3/UL WBC 7.0 LAB RBC(LOINC) 4.10 - x 10EE6/UL 5.30 RBC 4.55 LAB HEMOGLOBIN(LOINC) 12.0 - g/dl 16.0 HEMOGLOBIN 14.5 LAB HEMATOCRIT(LOINC) 34.0 - % 46.0 HEMATOCRIT 41.6 LAB MCV(LOINC) 80 - 99 fl MCV 91 LAB MCH(LOINC) 27 - 33 pg MCH 32 LAB MCHC(LOINC) 32 - 36 X10 3 MCHC 35 LAB RDW/CV(LOINC) 12.0 - % 15.6 RDW/CV 13.2 LAB PLATELET(LOINC) 150 - 450 x10EE3/UL PLATELET 195 LAB MPV(LOINC) 6.6 - 10.5 fl MPV 9.1 Result Comment: AUTOMATED DIFFERENTIAL LAB NEUT %(LOINC) 46.0 - 76.0 % NEUT % 52.5 LAB LYMPH %(LOINC) 20.0 - 45.0 % LYMPH % 37.1 LAB MONOS %(LOINC) 0.0 - 10.0 % MONOS % 7.4 LAB EO %(LOINC) 0.0 - 7.0 % EO % 2.0 LAB BASO %(LOINC) 0.0 - 2.0 % BASO % 1.0 LAB Lymph #(LOINC) 0.80 - 2.80 x10EE3/U L Lymph # 2.60 LAB Neut #(LOINC) 1.50 - 7.10 x10EE3/U L Neut # 3.70 LAB [place] #(LOINC) 0.20 - 1.00 x10EE3/U L [place] # 0.50 LAB EO #(LOINC) 0.00 - 0.50 x10EE3/U L EO # 0.10 LAB Baso #(LOINC) 0.00 - 0.10 x10EE3/U L Baso # 0.10 LAB MANUAL DIFF(LOINC) MANUAL DIFF N/A LAB MORPHOLOGY(INC ) MORPHOLOGY N/A Result Comment: {CD] Performed By: #### [id number] #### [facility],[address] [place] [address] CMP WITH EGFR Collected: 11/05/2017 Status: F Source: [facility] 1:50 [facility] REPOSITORY TYPE CODE TESTS RESULT OUT OF RANGE REFERENCE UNITS LAB CMP with eGFR(LOINC) CMP with eGFR Result Comment: COMPREHENSIVE METABOLIC PANEL LAB SODIUM(LOINC) 136 - 145 mmol/l SODIUM 139 LAB POTASSIUM(LOINC) 3.5 - 5.1 mmol/L Low POTASSIUM 3.3 LAB CHLORIDE(LOINC) 98 - 107 mmol/L CHLORIDE 104 LAB CO2(LOINC) 21.0 - mmol/L 31.0 CO2 25.3 LAB GLUCOSE(LOINC) 74 - 106 mg/dl GLUCOSE High 126 LAB BUN(LOINC) 6 - 20 mg/dl BUN 8 LAB CREATININE(LOINC) 0.6 - 1.2 mg/dl CREATININE 0.7 LAB AST/SGOT(LOINC) 13 - 39 U/L AST/SGOT 17 LAB ALK PHOS(LOINC) 38 - 126 U/L ALK PHOS 62 LAB CALCIUM(LOINC) 8.6 - mg/dl 10.2 CALCIUM 9.0 LAB TOTAL 6.4 - 8.3 g/dl PROTEIN(LOINC) TOTAL PROTEIN 6.8 LAB ALBUMIN(LOINC) 3.4 - 4.8 g/dL ALBUMIN 4.2 LAB GLOBULIN(LOINC) 1.5 - 3.8 G/DL GLOBULIN 2.6 LAB A/G RATIO(LOINC) 0.9 - 1.6 A/G RATIO 1.6 LAB TOTAL BILI(LOINC) 0.0 - 1.5 mg/dl TOTAL BILI 0.6 LAB B/C RATIO(LOINC) 0 - 30 ratio B/C RATIO 11 LAB ALT/SGPT(LOINC) 8 - 35 U/L ALT/SGPT 22 LAB ANION GAP(LOINC) 10 - 20 mmol/L ANION GAP 13 LAB AGE(LOINC) years AGE 67 LAB eGFR(LOINC) 60 - 999 ML/MINUTE eGFR >60 LAB eGFR(AA)(LOINC) 60 - 999 ML/MINUTE eGFR(AA) >60 Result Comment: ACCORDING TO THE NATIONAL KIDNEY DISEASE EDUCATION PROGRAM(NKDE), A NORMAL eGFR IS A VALUE GREATER THAN OR EQUAL TO 60 ML/MIN/1.73 SQ METERS. CHRONIC KIDNEY DISEASE: <60mL/MIN/1.73 SQ METERS KIDNEY FAILURE: <15mL/MIN/1.73 SQ METERS THIS TEST SHOULD ONLY BE USED FOR PATIENTS 18 YEARS OF AGE AND OLDER. Performed By: #### [id number] #### [facility],[address] [place] [address] PROTHROMBIN TIME AND Collected: 11/05/2017 Status: F Source: [facility] INR 1:50 AM [facility] REPOSITORY TYPE CODE TESTS RESULT OUT OF REFERENCE UNITS RANGE LAB PROTHROMBIN TIME AND INR(LOINC) PROTHROMBIN TIME AND INR Result Comment: PROTHROMBIN TIME AND INR LAB PT-COUMADIN(LOINC) sec PT-COUMADIN 38.7 LAB INR(LOINC) 0.8 - 1.2 INR High 3.5 Result Comment: THE HEMOSIL THROMBOPLASTIN REAGENT USED IN THE PROTHROMBIN TIME TEST INTERACTS WITH THE DRUG CUBICIN (DAPTOMYCIN) AND WILL RESULT IN FALSELY ELEVATED PT / INR RESULTS INR INTERPRETATION INR INDICATION PREVENTION AND TREATMENT OF THROMBOEMBOLISM ASSOCIATED WITH: 2.0 - 3.0 ATRIAL FIBRILLATION, BIOPROSTHETIC HEART VALVES, PULMONARY EMBOLISM, VENOUS THROMBOSIS, SYSTEMIC EMBOLISM POST MYOCARDIAL INFARCTION 2.5 - 3.5 MECHANICAL HEART VALVES Performed By: #### [id number] #### [facility],[address] [id number] SURGERY VISIT REPORT Observed: 10/18/2017 Status: F Source: [facility] 9:07 AM [facility] REPOSITORY [facility] [address] [place] [address]. [address] [place] [id number] OFFICE VISIT Date of Service: 10/16/17 MR#: [id number] Acct: [id number] Name: NEVIN JOSHI Rep #: [id number] : 1950 Provider: Campos Rodriguez MD Age/Sex: 67/F Location: [facility] Status: Signed Intake Vital Signs10/16/17 Height 5 ft 5 in 10/16/17 Weight: 209 lb Intake Visit Reasons: Discuss Breast Surgery Chief Complaint: Breast cancer, new diagnosis Hotel Guest Service Agent Required: No Is patient in pain?: No Allergies adhesive tape Allergy (Mild, Verified 10/16/17 15:33) rash Medications Aspirin [Aspir-Low] 81 mg PO DAILY 06/02/16 [History Confirmed 10/16/17] Atorvastatin Calcium [Lipitor] 40 mg PO QHS 06/02/16 [History Confirmed 10/16/17] Lisinopril [Prinivil] 10 mg PO DAILY 06/02/16 [History Confirmed 10/16/17] Metoprolol Tartrate 12.5 mg PO BID 06/02/16 [History Confirmed 10/16/17] Tylenol Extra Strength 1,000 mg PO Q4H PRN PRN 06/02/16 [History Confirmed 10/16/17] Warfarin [Coumadin (PBKC)] 6 mg PO UD 06/02/16 [History Confirmed 10/16/17] PFSH Medical History Anxiety (Acute) Breast cancer (Acute) Cardiac murmur (Acute) DVT (deep venous thrombosis) (Acute) Enlarged thyroid (Acute) Heart disease (Acute) History of myocardial infarction (Acute) Surgical History HIP SURGIES (Acute) History of section (Acute) History of cholecystectomy (Acute) History of hysterectomy (Acute) History of mastectomy (Acute) S/P colonoscopy (Acute) Family History Mother Colon cancer Father Heart disease Social History Smoking Status: Never smoker HPI HPI HPI: NEVIN JOSHI, is a 67 F who presents to the office today for follow-up from an ultrasound-guided left needle core biopsy of her breast on 10/02/2017. This came back as an invasive ductal carcinoma. Patient had her ultrasound done at [facility] on 09/15/2017. This showed a new solid suspicious lesion at the 8 o'clock position approximately 3-4 mm in size posterior shadowing the finding does not correlate with mammographic findings her mammogram showed an obscure indeterminate morphology mid breast depth 2 o'clock position upper outer quadrant was approximately 13 mm in size. She was diagnosed with right breast invasive ductal cancer stage IIa (T2, N0, M0) grade 2, ER OK negative, HER-2 overexpressed in 2005. Patient is status post modified radical mastectomy July 2005 followed by [facility] chemo immune therapy (1 year) concluded September 2006. Patient had seen her previous breast surgeon done in [facility] and has elected to come back to see me for further evaluation and treatment. ROS General General: Yes breast cancer; no weight change, appetite, fatigue, colon cancer or weakness HEENT HEENT: No difficulty swallowing, eye injury, eye surgery, swollen glands or hoarseness Endo Endocrine: No thyroid disease, diabetes mellitus, thyroid cancer, Hair loss, heat intolerance or cold intolerance Breast Breast: Yes abnormal mammogram; no left breast lump, right breast lump, nipple discharge, breast pain, abnormal US or breast enlargement Musc Musculoskeletal: Yes arthritis; no back problems, rheumatoid arthritis, gout or joint pain Cardio Cardiovascular: Yes murmur, heart disease, high blood pressure and heart attack; no pacemaker, atrial fibrillation, heart stent, palpitations, shortness of breat with exertion or chest pain Psych Psychiatric: Yes anxiety; no depression or hearing voices Resp Respiratory: No shortness of breath, No sleep apnea, No cough, No COPD, No asthma, No emphysema, No wheezing Gastro Gastrointestinal: No abdominal pain, No nausea or vomiting, No diarrhea, No constipation, No blood in stool, No acid reflux, Yes hemorrhoids, No ulcers, No gallbladder problem, No black,tarry stools Panfilo Hematologic: Yes blood thinners, No blood disorders, No bleeding, No anemia, Yes blood clots Additional Details: history of multiple DVTs--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 Coumadin Neuro Neurologic: No weakness Exam Const General: well developed, no acute distress, well hydrated Orientation: oriented to person, oriented to place, oriented to time [facility] Head: normocephalic, atraumatic Ears: external ears normal Mouth: moist mucous membranes Eyes Sclera: sclerae normal Pupils: normal by confrontation Neck Neck: no lymphadenopathy noted Neck mass: No Thyroid: symmetrical, thyroid normal Chest Chest palpation AND inspection: normal inspection of the chest Breast inspection: normal inspection of the breasts Breast Palpation: No nipple discharge Other: Palpation of the right breast reveals well-healed scar. Palpation of the left breast reveals normal pendulous breast biopsy site is clean without signs of infection. Axillary exam demonstrates no suspicious masses in either the left or right axilla. Resp Effort AND Inspection: normal respiratory effort Auscultation: clear to auscultation bilaterally Percussion: percussion normal Cardio Rate: regular rate Rhythm: regular rhythm Heart Sounds: murmur GI Palpation: soft, nontender, no masses, no hepatosplenomegaly Rectal Exam: other Other: Rectal exam deferred. Extrem General: no clubbing, cyanosis or edema, normal to inspection Assessment AND Plan Problems 1. Malignant neoplasm of lower-inner quadrant of left breast in female, estrogen receptor positive C50.312; Z17.0 Plan I have given the patient options for initial surgical treatment. Options are the following: lumpectomy followed by radiation therapy vs. mastectomy vs. mastectomy followed by immediate reconstruction. I have described the procedures to the patient. I have described the advantages and disadvantages of the options, but I have told the patient that among the options, the survival rate for breast cancer is the same. This point the patient would prefer to have an ultrasound- guided lumpectomy with sentinel lymph node bx. I have told the patient that with all the surgeries that a sentinel lymph node biopsy is required. I have described the procedure of sentinel lymph node biopsy to the patient. I have told the patient that if the biopsy is positive for metastatic disease, then a full axillary lymph node dissection is required. I have told the patient that adjuvant chemotherapy will be required should the lymph nodes reveal metastatic disease. Also, a full lymph node dissection will increase the risk for lymphedema, especially if there are 4 or more lymph nodes positive for metastatic disease and radiation to the axilla is also required. I have told the patient the risks of surgery, including but not limited to: infection, bleeding, scar tissue, seroma and persistent seroma, lymph leak, injury to any blood vessels, injury to any nerves (particularly the long thoracic, the thoracodorsal, and the second intercostal brachial and the resultant sequelae), lymphedema, cosmetic deformity, dysesthesias, wound infections, further surgery (especially if margins are not clear), complications of anesthesia, etc. the patient understands. The patient will think about the options and discuss it further with the family. The patient will contact me in the next few days when she decides what the patient wishes to do. I have answered all the patient s questions at this point to her satisfaction and she has no further questions. Coding Level of Care Code Off vis,est,level 3 Diagnoses Malignant neoplasm of lower-inner quadrant of left breast in female, estrogen receptor positive C50.312; Z17.0 Breast location: lower inner quadrant of breast Estrogen receptor status: positive Patient sex: female 10/18/17 0907 <Electronically signed by Campos Rodriguez MD> Date Campos Rodriguez MD Cosigner Signature: Date (if applicable) CC: Joe Lopez MD; Gunnar Garza MD Observed: 10/16/2017 Status: F Source: [facility] CULTURE URINE 10:15 AM [facility] REPOSITORY CULTURE URINE _URINE CULTURE_ M I C R O B I O L O G Y R E P O R T FINAL Antimicrobial Susceptibility and Organism Identification Report Specimen Number : [id number] Requested : 10/16/17 Specimen Source : URINE Collected : 10/16/17 10:15 [place] [facility] : OUTPATIENT Received : 10/16/17 10:15 Requesting Physician : Gunnar Garza Patient/Specimen Tests and Comments Specimen Comments FINAL REPORT: URINE COLONY COUNT: > THAN 100,000 CFU/CC GRAM NEGATIVE RODS GRAM POSITIVE COCCI Organisms Identified -------- * 01 Escherichia coli 10/19/17 Comments >100,000 cfu -------- * 02 Enterococcus faecalis 10/19/17 Comments 50-100,000 cfu Tech : Source : URINE ID # : [id number] FINAL Report Date : / / : Collected : 10/16/17 10:15 Continued on Next Page M I C R O B I O L O G Y R E P O R T FINAL Antimicrobial Susceptibility and Organism Identification Report Isolate 01 Escherichia coli Isolate 02 Enterococcus faecalis Escherichia coli Enterococcus faecalis DRUG PADMAJA Sys. Urine PADMAJA Sys. Urine --- ----- ----- --- ----- ----- Ampicillin <=8 S S <=2 S S Ceftriaxone <=8 S S --- Cephalothin <=8 S --- Ciprofloxacin <=1 S S <=1 S S Cefuroxime <=4 S S --- Ertapenem <=1 S S --- Nitrofurantoin <=32 S <=32 S Imipenem <=1 S S --- Levofloxacin <=2 S S <=1 S S Meropenem <=1 S S --- Pip/Tazo <=16 S S --- Trimeth/Sulfa <=2/38 S S --- Tetracycline <=4 S S >8 R R Tobramycin <=4 S S --- Clindamycin --- >4 Daptomycin --- 4 S S Linezolid --- 2 S S Moxifloxacin --- <=0.5 Penicillin --- 2 S S Vancomycin --- 2 S S +, ++, +++, or S = Susceptible N/R = Not Reported Mireya = Beta Lactamase Positive I = Intermediate CC = Cost Code TFG = Thymidine-dependent Strain R = Resistant PADMAJA = mcg/ml (mg/L) Blank = Data not available, or drug not advisable or tested For Blood and CSF Isolates, a Beta-Lactamase test is recommended for Enterococus species. IB appears in place of S, I (S), +, ++, or +++ with species known to possess inducible B-lactamases; potentially they may become resistant to all B-lactam drugs. Monitoring of patients during/after therapy is recommended. Avoid other/combined B-lactam drugs. (a) Use maximum doses of drug with an aminoglycoside for P. aeruginosa in patients with granulocytopenia or serious infections. (b) Breakpoints based on parenteral dose. For cefuroxime Axetil (PO) use <8=S, 8-16=I, >16=R. (c) For non-enterococcal streptococci, Micrococcus species, and Listeria species, refer to the Ampicillin interpretation. * Interpretations based on approx. adult attainable systemic/urine levels, except drugs with <3 dilutions, which print NCCLS. Doses are guidelines; consider weight and renal/hepatic function. Urine interpretation for lower UTI only. Interpretations based on NCCLS M7-A2. Ticar/K Clav'ate for gram positives based on director of casino marketing's breakpoints. Tech : Source : URINE ID # : [id number] FINAL Report Date : / / : Collected : 10/16/17 10:15 10/19/[id number]. 10/18/17.1138.KLS. 10/19/[email or web address].COMPLETE Performed By: #### [id number] #### [facility],[address] [place] [address] SURGERY VISIT REPORT Observed: 10/10/2017 Status: F Source: [place] 3:18 PM [facility] [address] [place] [address] [place] [address] OFFICE VISIT Date of Service: 10/02/17 MR#: [id number] Acct: [id number] Name: NEVIN JOSHI Rep #: [id number] : 1950 Provider: Campos Rodriguez MD Age/Sex: 67/F Location: [facility] Status: Signed Intake Intake Visit Reasons: Lt Breast BX Chief Complaint: left breast abn mammo/US Hotel Guest Service Agent Required: No Is patient in pain?: No Allergies adhesive tape Allergy (Mild, Verified 10/05/17 15:35) rash Medications Aspirin [Aspir-Low] 81 mg PO DAILY 06/02/16 [History Confirmed 10/05/17] Atorvastatin Calcium [Lipitor] 40 mg PO QHS 06/02/16 [History Confirmed 10/05/17] Lisinopril [Prinivil] 10 mg PO DAILY 06/02/16 [History Confirmed 10/05/17] Metoprolol Tartrate 12.5 mg PO BID 06/02/16 [History Confirmed 10/05/17] Tylenol Extra Strength 1,000 mg PO Q4H PRN PRN 06/02/16 [History Confirmed 10/05/17] Warfarin [Coumadin (PBKC)] 6 mg PO UD 06/02/16 [History Confirmed 10/05/17] PFSH Medical History Anxiety (Acute) Breast cancer (Acute) Cardiac murmur (Acute) DVT (deep venous thrombosis) (Acute) Enlarged thyroid (Acute) Heart disease (Acute) History of myocardial infarction (Acute) Surgical History HIP SURGIES (Acute) History of section (Acute) History of cholecystectomy (Acute) History of hysterectomy (Acute) History of mastectomy (Acute) S/P colonoscopy (Acute) Family History Mother Colon cancer Father Heart disease Social History Smoking Status: Never smoker HPI HPI HPI: NEVIN JOSHI, is a 67 F who presents to the office today for Office Procedures Biopsy Provider Documentation Preoperative diagnosis: Abnormal mammogram to left breast Postoperative diagnosis: The same Procedure: Ultrasound-guided needle core biopsy of abnormal mammogram to left breast Surgeon: Michael Procedure: Ultrasound of the left breast at the 8 o'clock position would be of the abnormal finding. I prepped the breast with Betadine. I injected 1% lidocaine plain. A small skin ariella was made. Under ultrasound guidance to needle core biopsies of this were obtained. Under ultrasound guidance a small titanium clip was placed. Sterile dressings were applied. Patient tolerated the procedure well. 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 Biopsy Breast Biopsy: 25412 US Guidance Procedure Time Out Time Out Informed consent given: Yes Consent signed: Yes Time out checklist: patient, procedure, site marked/identified, positioning of patient, supplies available, allergies confirmed, team agrees on procedure Time out staff in room: Yes Time out verified: Yes Time out date: 10/02/17 Time out time: 15:00 Assessment AND Plan Orders Orders: Coding Level of Care Code No Charge Additional Codes Biopsy - Breast Biopsy: 10446 US Guidance (90393) 10/10/17 1518 <Electronically signed by Campos Rodriguez MD> Date [facility] Signature: Date (if applicable) CC: KEENAN MICHELE; Joe Lopez MD; Gunnar Garza MD ONCOLOGY VISIT REPORT Observed: 10/05/2017 Status: F Source: [place] 4:03 PM [facility] REPOSITORY [facility] [address] [place] [id number] OFFICE VISIT Date of Service: 10/05/17 1534 MR#: [id number] Acct: [id number] Name: NEVIN JOSHI Rep #: [id number] : 1950 From: Joe Lopez MD Age/Sex: 67/F Location: [facility] Status: Signed - Problem List (1) Cancer of right female breast Status: Chronic - Date of Service Date of Service:: 10/05/17 - Chief Complaint Breast cancer, new diagnosis - History of Present Illness 1- Patient was Diagnosed with right breast invasive ductal cancer stage IIa (T2, N0, M0) grade 2, ER OK negative, HER-2 overexpressed in 2005. Patient is status post modified radical mastectomy July 2005 followed by [facility] chemo immune therapy (1 year) concluded September 2006 and she went on surveillance. 2-On screening September 2017 A suspicious abnormality in the contralateral breast (left) seen on screening mammogram and ultrasound October 02, 2017 biopsy showed Invasive ductal carcinoma, nuclear grade 1 , ER positive (95%) OK positive (95% ) and Her-2 not overexpressed (1+) - Interval History She tolerated the biopsy was at complications and apart from the an anxiety related to the new diagnosis no change in her health - Past Medical/Social History Past Medical History Past Medical History: Heart disease Other Past Medical History: DVT ENLARGED THYROID Cancer: Breast cancer Past Surgical History Surgical: section,Cholecystectomy,Hysterectomy, Mastectomy Family History Paternal Past Medical History: Heart disease Maternal Past Medical History: Unknown Maternal History of Cancer: Colon cancer Social History Social History: No changes Smoking Status Never smoker Review of Systems Comment: See my note of September 25 2017 Vital Signs Height 5 ft 5 in Weight: 95.708 kg Weight in Pounds 211.0 lbs Pulse Ox 96 - Physical Exam General: Alert, Oriented x3, No apparent distress, - - For full exam please see my note of September 25, 2017 Psychiatric:: Anxious, - - Emotional and in tears Assessment and Plan 67-year-old female with 1. Invasive ductal cancer of the right breast stage IIa (T2, N0, M0) grade 2, ER/OK negative, HER-2 overexpressed. Patient is status post modified radical mastectomy followed by adjuvant TCH concluded September 2006. 2. A suspicious abnormality in the left breast ( contralatera) seen on screening mammogram and ultrasound September 2017 and biopsy showed Invasive ductal carcinoma, nuclear grade 1 , ER positive (95%) OK positive (95% ) and Her-2 not overexpressed (1+). Advice primary surgery (options are mastectomy or breast conserving surgery + sentinel lymph node biopsy) and follow-up for adjuvant treatment 3-4 weeks postop. 3. 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 Patient was seen was her impression and plan discussed. Primary Care Provider: Referring Provider: 10/05/17 [id number] <Electronically signed by Joe Lopez MD> Date [facility] Signature: Date (if applicable) CC: Campos Rodriguez MD BREAST BIOPSY Observed: 10/02/2017 Status: F Source: [place] ([place]) 3:00 PM [facility] REPOSITORY Patient: NEVIN JOSHI : 1950 (67/F) Acct Num: [id number] Phys: Campos Rodriguez MD Unit Num: [id number] Loc: LABSPEC Specimen: [id number] Received: 10/02/171650 Spec Type: BREAST BX TISSUES TISSUES: Left breast, NOS COMMENT Immunohistochemistry ([id number]) supports the above diagnosis. ER/OK/Anv7sis studies are being performed on sections of tumor and the results from this study will be reported separately ([id number]). GROSS DESCRIPTION Received in fixative is one container labeled with the patient's name and designated left breast biopsy. The specimen consists of an elongated piece of chicas-yellow fibroadipose tissue measuring 1.5 cm in length and 0.1 cm in diameter. The entire specimen is submitted in one cassette. / SJ:abel 10/03/17 TC:0 CPT: 36231 HEADER OPERATION: Ultrasound-guided needle core biopsy left breast PRE-OP DIAGNOSIS: Abnormal mammogram R92.8 TISSUE SUBMITTED: Left breast biopsy ISCHEMIC TIME: <1 minute FIXATION TIME: 28.5 hours MICROSCOPIC DESCRIPTION Slides are reviewed. MICROSCOPIC DIAGNOSIS Left breast, ultrasound-guided needle core biopsy: Invasive ductal carcinoma, nuclear grade 1 (0.7 cm in length). See comment. SJ:abel 10/04/17 Signed Mickey Moon 10/05/17 <signature on file> Performed By: #### PBRBX #### [facility] [address] [place], [address] IMMUNOHISTOCHEMISTRY Observed: 10/02/2017 Status: F Source: [place] 12:00 AM [facility] REPOSITORY Patient: NEVIN JOSHI : 1950 (67/F) Acct Num: [id number] Phys: Campos Rodriguez MD Unit Num: [id number] Loc: LABSPEC Specimen: [id number] Received: 10/04/17 193 Spec Type: IMMUNO TISSUES TISSUES: Left breast, NOS SPECIMEN INFORMATION: Tissue Source: Left breast Clinical Info: Abnormal mammogram Specimen Number: [id number] CPT code: 78753, 87341 x4, 14998 x3 METHODOLOGY: Deparaffinized sections of prefer/formalin-fixed tissue or PAP/DQ stained slides are incubated with monoclonal/polyclonal antibodies/oligonucleotide probes. Localization is made via biotin free immunoperoxidase method. Appropriate controls are performed and reacted as expected. Results on target cell population are indicated in the following table: RESULTS: ANTIBODY / CLONE RESULT E-Cad (ECH-6) positive CK8 (06rxkcC50) positive CK5-6 (D5 AND 1684) negative Ki-67 (30-9) positive, low P53 (DO-7) positive, weak, rare cells MORPHOMETRIC ANALYSIS ER (clone 6F11) >95%, strong OK (clone 16/1E2) >95%, moderate Her-2Neu (clone CB11) 1+ The prognostic test for HER2 is performed on formalin-fixed paraffin embedded tissue. A 3+ (positive) staining pattern is defined as intense, homogeneous, complete, circumferential membranous staining in >10% of contiguous tumor cells. A similar weak (2+) staining pattern is interpreted as equivocal. GWENDOLYN follow- up testing is recommended for all equivocal cases. Positivity/negativity for ER/ OK is reported if > or < 1% of the tumor cells are immuno- reactive, respectively. The ASCO/CAP criteria is used for scoring. Reference: Journal of Clinical Oncology, 2013; 31:9157-9501 AND 2010; 16:2784- 2795. Duration of fixation : 28.5 Hrs; Sample Adequate: Yes. These assays have not been validated on decalcified tissues. Results should be interpreted with caution given the likelihood of false negativity on decalcified specimens. These tests were developed and their performance characteristics determined by [facility]. They may not have been cleared or approved by the U.S. Food and Drug Administration. The FDA has determined that such clearance or approval is not necessary. INTERPRETATION: Left breast, ultrasound-guided needle core biopsy: Invasive ductal carcinoma, nuclear grade 1. Positive for estrogen receptors (favorable prognostic indicator). Positive for progesterone receptors (favorable prognostic indicator). Negative for overexpression of FAU1ddg. SJ:abel 10/05/17 PHYSICIAN AND INSTITUTION [place] [id number] Signed Mickey Jain 10/05/17 <signature on file> Performed By: #### PIMM #### [facility] [address] [place], [address] SURGERY VISIT REPORT Observed: 09/30/2017 Status: F Source: [place] 4:52 PM [facility] REPOSITORY [facility] 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: No Is patient in pain?: No Allergies adhesive tape Allergy (Mild, Verified 09/25/17 14:51) rash Medications Aspirin [Aspir-Low] 81 mg PO DAILY 06/02/16 [History Confirmed 09/25/17] Atorvastatin Calcium [Lipitor] 40 mg PO QHS 06/02/16 [History Confirmed 09/25/17] Lisinopril [Prinivil] 10 mg PO DAILY 06/02/16 [History Confirmed 09/25/17] Metoprolol Tartrate 12.5 mg PO BID 06/02/16 [History Confirmed 09/25/17] Tylenol Extra Strength 1,000 mg PO Q4H PRN PRN 06/02/16 [History Confirmed 09/25/17] Warfarin [Coumadin (PBKC)] 6 mg PO UD 06/02/16 [History Confirmed 09/25/17] Is last menstrual period known: No Post menopausal: Yes Patient : No PFSH Medical History Anxiety (Acute) Breast cancer (Acute) Cardiac murmur (Acute) DVT (deep venous thrombosis) (Acute) Enlarged thyroid (Acute) Heart disease (Acute) History of myocardial infarction (Acute) Surgical History HIP SURGIES (Acute) History of section (Acute) History of cholecystectomy (Acute) History of hysterectomy (Acute) History of mastectomy (Acute) S/P colonoscopy (Acute) Family History Mother Colon cancer Father Heart disease Social History Smoking Status: Never smoker HPI HPI HPI: NEVIN JOSHI, is a 66 F who presents to the office today for evaluation of an abnormal mammogram and ultrasound. Patient had her ultrasound done at [facility] on 09/15/2017. This showed a new solid suspicious lesion at the 8 o'clock position approximately 3-4 mm in size posterior shadowing the finding does not correlate with mammographic findings her mammogram showed an obscure indeterminate morphology mid breast depth 2 o'clock position upper outer quadrant was approximately 13 mm in size. She was diagnosed with right breast invasive ductal cancer stage IIa (T2, N0, M0) grade 2, ER OK negative, HER-2 overexpressed in 2005. Patient is status post modified radical mastectomy July 2005 followed by [facility] chemo immune therapy (1 year) concluded September 2006. ROS General General: Yes breast cancer; no weight change, appetite, fatigue, colon cancer or weakness HEENT HEENT: No difficulty swallowing, eye injury, eye surgery, swollen glands or hoarseness Endo Endocrine: No thyroid disease, diabetes mellitus, thyroid cancer, Hair loss, heat intolerance or cold intolerance Breast Breast: Yes abnormal mammogram; no left breast lump, right breast lump, nipple discharge, breast pain, abnormal US or breast enlargement Musc Musculoskeletal: Yes arthritis; no back problems, rheumatoid arthritis, gout or joint pain Cardio Cardiovascular: Yes murmur, heart disease, high blood pressure and heart attack; no pacemaker, atrial fibrillation, heart stent, palpitations, shortness of breat with exertion or chest pain Psych Psychiatric: Yes anxiety; no depression or hearing voices Resp Respiratory: No shortness of breath, No sleep apnea, No cough, No COPD, No asthma, No emphysema, No wheezing Gastro Gastrointestinal: No abdominal pain, No nausea or vomiting, No diarrhea, No constipation, No blood in stool, No acid reflux, Yes hemorrhoids, No ulcers, No gallbladder problem, No black,tarry stools Panfilo Hematologic: Yes blood thinners, No blood disorders, No bleeding, No anemia, Yes blood clots Additional Details: history of multiple DVTs--fpc Coumadin Neuro Neurologic: No weakness Exam [facility] Head: normal to inspection, normocephalic, atraumatic Mouth: moist mucous membranes, oropharynx normal Eyes General: appearance normal, both eyes and all related structures Sclera: sclerae normal Neck Neck: no lymphadenopathy noted, trachea midline Neck mass: No Thyroid: thyroid normal Lymphatic: no lymphadenopathy noted Chest Breast Palpation: No nipple discharge Other: Patient has a well-healed mastectomy scar on the right side. Normal pendulous breasts on the left side no palpable abnormalities are identified. Axillary exam shows no adenopathy and there is no supraclavicular adenopathy Resp Other: Respiratory Exam: Deferred Cardio Heart Sounds: murmur Other: Cardiac Exam: Deferred GI Other: GI Exam: Deferred Other: Rectal Exam: Deferred Extrem Other: Extremity Exam: Deferred Assessment AND Plan Problems 1. Abnormal mammogram of left breast R92.8 Plan I have discussed above with the patient. I have recommended ultrasound guided needle core breast biopsy. I have described the procedure to the patient. I have discussed with the patient that sometimes the ultrasound lesion may be artifact and is user dependent and therefore prior to undergoing the procedure, the patient will have a definitive US to ensure that the lesion is truly present and is not artifact. A marker clip will be placed to identify the location. Patient has been counseled to the risks/benefits of the procedure. I have explained the risks of the surgery, including but not limited to: infection, bleeding, injury to any blood vessels/nerves, scar tissue, missing the lesion, further surgery, etc. - the patient understands and agrees to proceed. I have answered all of the patient's questions to her satisfaction and she has no further questions. Coding Level of Care Code Off vis,new,level 3 Diagnoses Abnormal mammogram of left breast R92.8 09/30/17 6914 <Electronically signed by Campos Rodriguez MD> Date Campos Lagos Signature: Date (if applicable) CC: Joe Lopez MD; Gunnar Garza MD ONCOLOGY VISIT REPORT Observed: 09/25/2017 Status: F Source: [place] 2:04 PM [facility] REPOSITORY [facility] [address] [place] [address] OFFICE VISIT Date of Service: 09/25/17 1355 MR#: [id number] Acct: [id number] Name: NEVIN JOSHI Rep #: [id number] : 1950 From: Joe Lopez MD Age/Sex: 66/F Location: [facility] Status: Signed - Problem List (1) Cancer of right female breast Status: Chronic - Date of Service Date of Service:: 09/25/17 - Chief Complaint Breast cancer - History of Present Illness Patient is on surveillance following treatment for breast cancer. She was diagnosed with right breast invasive ductal cancer stage IIa (T2, N0, M0) grade 2, ER OK negative, HER-2 overexpressed in 2005. Patient is status post modified radical mastectomy July 2005 followed by [facility] chemo immune therapy (1 year) concluded September 2006. - Past Medical/Social History Past Medical History Past Medical History: Heart disease Other Past Medical History: DVT ENLARGED THYROID Cancer: Breast cancer Past Surgical History Surgical: section,Cholecystectomy,Hysterectomy, Mastectomy Family History Paternal Past Medical History: Heart disease Maternal Past Medical History: Unknown Maternal History of Cancer: Colon cancer Social History Social History: No changes Smoking Status Never smoker Review of Systems Constitutional:: Denies: Fever, Sweats, Weight loss, Appetite change, Chills Cardiovascular:: Denies: Chest pain, Palpitations, Dyspnea on exertion, Orthopnea, PND, Shortness of breath Respiratory: Denies: Cough, Hemoptysis, Shortness of Breath, Wheezing Gastrointestinal:: Denies: Abdominal pain, Nausea, Vomiting, Diarrhea, Constipation, Hematochezia Genitourinary: Denies: Dysuria, Hematuria, 15, Flank pain Musculoskeletal:: Denies: Back pain, Myalgia, Arthralgia Skin: Reports: - - Bruises easy being on Coumadin. Denies: Rash, Skin Changes, Wounds Neurological:: Denies: Headache, Dizziness, Visual changes, Tinnitus, Hearing loss Psychiatric: Denies: Anxiety, Depression, Homicidal Ideations, Suicidal Ideations Comment: Unaware of any lumps in either breast Vital Signs Height 5 ft 5 in Weight: 95.708 kg Weight in Pounds 211.0 lbs Pulse Ox 96 - Physical Exam General: Alert, Oriented x3, No apparent distress, - - Obese, ECOG 0-1 HEENT: Atraumatic, PERRLA, EOMI, Normocephalic Oropharynx:: Dry mucosa Neck:: Supple, Trachea midline. Negative for: JVD, bilateral Cardiac:: Regular rate, Regular rhythm, Normal S1, Normal S2. Negative for: Murmur Lungs: Clear to auscultation, Excusion symmetrical. Negative for: Rhonchi, Wheezes Abdomen:: Soft, Non-tender, Non-distended. Negative for: Hepatosplenomegaly Extremities:: Negative for: Cyanosis, Edema Neurological: Neuro grossly intact Skin:: Negative for: Lesions, Rash, Petechiae, Ecchymosis Psychiatric:: Appropriate affect, Euthymic Lymphatics:: Negative for: Cervical lymphadenopathy, Supraclavicular lymphadenopathy, Axillary lymphadenopathy Diagnostic Data: Mammogram and ultrasound of the left breast in January 2017 revealed a solid-appearing mass likely benign at the 3 o'clock position with a smaller adjacent lesion. A 6 month short interval follow-up was advised. Mammogram with ultrasound short-term follow-up September 2017 reported a new solid suspicious appearing lesion at the 8 o'clock position measuring 4 mm in maximum diameter and does not correlate with any mammographic findings. The previously described area was no longer seen. A biopsy advised Assessment and Plan 66-year-old female with 1. Invasive ductal cancer of the right breast stage IIa (T2, N0, M0) grade 2, ER/OK negative, HER-2 overexpressed. Patient is status post modified radical mastectomy followed by adjuvant TCH concluded September 2006. 2. A suspicious abnormality in the contralateral breast (left) seen on ultrasound September 2017 and a biopsy advice. Refer to surgical consult and follow- up 1 week after the biopsy. 3. 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 She will need to hold Coumadin for 5 days prior to schedule biopsy. Patient was seen was her impression and plan discussed. Primary Care Provider: Referring Provider: 09/25/17 1404 <Electronically signed by Joe Lopez MD> Date Joe Lopez MD Cosigner Signature: Date (if applicable) CC: US BREAST LT Observed: 09/15/2017 Status: F Source: [facility] UNILATERAL COMPLETE 11:18 AM [place] [address] Patient: NEVIN JOSHI Phone#: : 1950 Age: 66 Gender: F Pt. Type: Out Account: [id number] Location: [facility] Ordering: SEBASTIAN LOPEZ Exam Date: 09/15/2017/10:32 Family Phys: GUNNAR GARZA Charge Code: [id number] Physician: Whit[place] Order #: [id number] [facility] Dose#: PROCEDURE: ULTRASOUND BREAST LT COMPARISON: [facility], BREAST LT COMPLETE, 01/30/2017, 10:37. INDICATIONS: Left Breast Lesion TECHNIQUE: Breast ultrasound was performed, with evaluation focusing on all four quadrants. FINDINGS: DIAGNOSTIC CATEGORY 4-- SUSPICIOUS FINDINb-INTERMEDIATE SUSPICION FOR MALIGNANCY LEFT BREAST: New solid suspicious-appearing lesion, hypoechoic echotexture, mid-breast depth, 8 o'clock position, and 3x4 mm size with posterior shadowing. The finding does not to correlate with a mammogram finding. LEFT BREAST: Simple benign-appearing cysts, anechoic echotexture, are seen throughout the left breast. The largest cyst is in mid-breast depth, 12 o'clock position, upper breast between the inner outer quadrants, and 24m9e21 mm size. Cysts in the 1:00 position likely corresponding to the mammogram finding. The previously described area at 3:00 position is not identified on the current exam. RECOMMENDATIONS: ULTRASOUND-GUIDED CORE BIOPSY: LEFT BREAST. PLEASE NOTE: A NORMAL MAMMOGRAM DOES NOT EXCLUDE THE POSSIBILITY OF BREAST CANCER. A CLINICALLY SUSPICIOUS PALPABLE LUMP SHOULD BE BIOPSIED. Dictated by: Adriana Bland MD on 09/15/2017 at 12:10 Approved by: Adriana Bland MD on 09/15/2017 at 12:10 MAMM DIGITAL Observed: 09/15/2017 Status: F Source: [facility] DIAGNOSTIC UNILAT LT 10:40 AM [place] [address] Patient: NEVIN JOSHI Phone#: : 1950 Age: 66 Gender: F Pt. Type: Out Account: [id number] Location: [facility] Ordering: SEBASTIAN LOPEZ Exam Date: 09/15/2017/10:35 Family Phys: GUNNAR GARZA Charge Code: [id number] Physician: Whitman Order #: [id number] DLP Dose#: PROCEDURE: MAMM LT UNILAT DIGITAL DIAGNOSITC WITH CAD COMPARISON: [facility], UNILAT SCREENING, 01/30/2017, 9:45. [facility], SPOT/MAG DIGITAL, 01/30/2017, 10:08. INDICATIONS: Six month follow up BREAST COMPOSITION: Scattered fibroglandular densities (25-50% glandular). FINDINGS: DIAGNOSTIC CATEGORY 0--INCOMPLETE ASSESSMENT: NEED ADDITIONAL IMAGING EVALUATION. LEFT BREAST: FOCAL ASYMMETRY (finding without convex borders usually visible on two orthogonal views), characterized by obscured indeterminate morphology, mid-breast depth, 2 o'clock position, upper outer quadrant, and 63a68j00 mm size. RECOMMENDATIONS: ULTRASOUND: LEFT BREAST. We will perform a same-day ultrasound and provide an additional report. PLEASE NOTE: A NORMAL MAMMOGRAM DOES NOT EXCLUDE THE POSSIBILITY OF BREAST CANCER. A CLINICALLY SUSPICIOUS PALPABLE LUMP SHOULD BE BIOPSIED. THIS FACILITY UTILIZES A REMINDER SYSTEM TO ENSURE THAT ALL PATIENTS RECEIVE REMINDER LETTERS FOR APPOINTMENTS. THIS INCLUDES REMINDERS FOR ROUTINE MAMMOGRAMS, DIAGNOSITC MAMMOGRAMS, OR OTHER BREAST IMAGING INTERVENTIONS WHEN APPROPRIATE. THIS PATIENT WILL BE PLACED IN THE APPROPRIATE REMINDER SYSTEM. Dictated by: Adriana Bland MD on 09/15/2017 at 12:04 Approved by: Adriana Bland MD on 09/15/2017 at 12:04 CT ABDOMEN/PELVIS WO Observed: 06/10/2017 Status: F Source: [facility] 9:09 PM [place] [address] Patient: NEVIN JOSHI Phone#: : 1950 Age: 66 Gender: F Pt. Type: ER Account: [id number] Location: [facility] Ordering: HEATHER LUONG Exam Date: 06/10/2017/20:58 Family Phys: GUNNAR GARZA Charge Code: [id number] Physician: Whitman Order #: [id number] DLP Dose#: PROCEDURE: CT ABDOMEN/PELVIS WITHOUT CONTRAST COMPARISON: None. INDICATIONS: Lower back pain TECHNIQUE: CT images were created without intravenous contrast. All CT scans at this facility use dose modulation, iterative reconstruction, and/or weight based dosing when appropriate to reduce radiation dose to as low as reasonably achievable. IV CONTRAST: No IV contrast used,0ml TOTAL DOSE: 33.6 CTDIvol(mGy) FINDINGS: LIVER: Normal. No enlargement, atrophy, abnormal density, or significant focal lesion. BILIARY: The gallbladder is absent. Surgical clips are present in the gallbladder fossa. PANCREAS: Normal. No lesion, fluid collection, ductal dilatation, or atrophy. SPLEEN: Normal. No enlargement or focal lesion. KIDNEYS: A nonobstructing punctate calcification is present in the left kidney. ADRENALS: Normal. No mass or enlargement. AORTA/VASCULAR: Calcification of the aorta is present. RETROPERITONEUM: Normal. No mass or adenopathy. BOWEL/MESENTERY: Moderate stool retention distally. Diverticula are present. ABDOMINAL WALL: An umbilical hernia with fat is present. URINARY BLADDER: Normal. No visible focal wall thickening, lesion, or calculus. PELVIC NODES: Normal. No adenopathy. PELVIC ORGANS: The uterus is absent. The left ovary is 4.4 x 4.6 x 3.6 cm. BONES: Severe degenerative changes of the spine are present. Schmorl's node is present at the inferior endplate at L1. Bilateral hip prostheses are present. Continued Report - Page 2 of 2 Patient: NEVIN JOSHI Phone#: : 1950 Age: 66 Gender: F Pt. Type: ER Account: [id number] Location: 052 Ordering: HEATHER LUONG Exam Date: 06/10/2017/20:58 Family Phys: GUNNAR GARZA Charge Code: [id number] Physician: Whitman Order #: [id number] DLP Dose#: LUNG BASES: Normal. No visible pulmonary or pleural disease. OTHER: Negative. CONCLUSION: 1. There is no evidence of acute abdominal or pelvic abnormality. 2. The left ovary is large. Dictated by: Aminata Lorenzo MD on 06/12/2017 at 9:42 Approved by: Aminata Lorenzo MD on 06/12/2017 at 9:42 CBC Collected: 06/10/2017 Status: F Source: [facility] 8:55 PM [facility] REPOSITORY TYPE CODE TESTS RESULT OUT OF RANGE REFERENCE UNITS LAB CBC(LOINC) CBC Result Comment: CBC-COMPLETE BLOOD COUNT LAB WBC(LOINC) 4.5 - 10.8 x 10EE3/UL WBC 7.6 LAB RBC(LOINC) 4.10 - x 10EE6/UL 5.30 RBC 4.76 LAB HEMOGLOBIN(LOINC) 12.0 - g/dl 16.0 HEMOGLOBIN 14.9 LAB HEMATOCRIT(LOINC) 34.0 - % 46.0 HEMATOCRIT 44.3 LAB MCV(LOINC) 80 - 99 fl MCV 93 LAB MCH(LOINC) 27 - 33 pg MCH 31 LAB MCHC(LOINC) 32 - 36 X10 3 MCHC 34 LAB RDW/CV(LOINC) 12.0 - % 15.6 RDW/CV 13.1 LAB PLATELET(LOINC) 150 - 450 x10EE3/UL PLATELET 201 LAB MPV(LOINC) 6.6 - 10.5 fl MPV 9.1 Result Comment: AUTOMATED DIFFERENTIAL LAB NEUT %(LOINC) 46.0 - 76.0 % NEUT % 55.3 LAB LYMPH %(LOINC) 20.0 - 45.0 % LYMPH % 35.4 LAB MONOS %(LOINC) 0.0 - 10.0 % MONOS % 6.3 LAB EO %(LOINC) 0.0 - 7.0 % EO % 1.9 LAB BASO %(LOINC) 0.0 - 2.0 % BASO % 1.1 LAB Lymph #(LOINC) 0.80 - 2.80 x10EE3/U L Lymph # 2.70 LAB Neut #(LOINC) 1.50 - 7.10 x10EE3/U L Neut # 4.20 LAB [place] #(LOINC) 0.20 - 1.00 x10EE3/U L [place] # 0.50 LAB EO #(LOINC) 0.00 - 0.50 x10EE3/U L EO # 0.10 LAB Baso #(LOINC) 0.00 - 0.10 x10EE3/U L Baso # 0.10 LAB MANUAL DIFF(LOINC) MANUAL DIFF N/A LAB MORPHOLOGY(LOINC ) MORPHOLOGY N/A Result Comment: {CD] Performed By: #### [id number] #### [place] [address] PROTHROMBIN TIME AND Collected: 06/10/2017 Status: F Source: [facility] INR 8:55 PM [facility] REPOSITORY TYPE CODE TESTS RESULT OUT OF REFERENCE UNITS RANGE LAB PROTHROMBIN TIME AND INR(LOINC) PROTHROMBIN TIME AND INR Result Comment: PROTHROMBIN TIME AND INR LAB PT-COUMADIN(LOINC) sec PT-COUMADIN 38.4 LAB INR(LOINC) 0.8 - 1.2 INR High 3.5 Result Comment: THE HEMOSIL THROMBOPLASTIN REAGENT USED IN THE PROTHROMBIN TIME TEST INTERACTS WITH THE DRUG CUBICIN (DAPTOMYCIN) AND WILL RESULT IN FALSELY ELEVATED PT / INR RESULTS INR INTERPRETATION INR INDICATION PREVENTION AND TREATMENT OF THROMBOEMBOLISM ASSOCIATED WITH: 2.0 - 3.0 ATRIAL FIBRILLATION, BIOPROSTHETIC HEART VALVES, PULMONARY EMBOLISM, VENOUS THROMBOSIS, SYSTEMIC EMBOLISM POST MYOCARDIAL INFARCTION 2.5 - 3.5 MECHANICAL HEART VALVES Performed By: #### [id number] #### [place] [address] TROPONIN Collected: 06/10/2017 Status: F Source: [facility] 8:55 PM [facility] REPOSITORY TYPE CODE TESTS RESULT OUT OF REFERENCE UNITS RANGE LAB TROPONIN 0.00 - 0.05 ng/ml I(LOINC) TROPONIN I <0.01 Result Comment: Elevated troponin (above the 99th percentile) usually indicates myocardial ischemia. Results must be interpreted within the clinical setting. 1.Non-ischemic pathology can also cause elevated troponin levels (e.g., acute pulmonary embolism, myocarditis, pericarditis, heart failure, intracranial injury, rhabdomyolisis, sepsis, shock and renal insufficiency). 2.Approximately 1% of healthy adults have elevated troponin levels. 3.Analytical false positive results rarely occur(due to multiple interferences such as heterophile antibodies). Performed By: #### [id number] #### [facility],[address] [place] [address] CMP WITH EGFR Collected: 06/10/2017 Status: F Source: [facility] 8:55 [facility] REPOSITORY TYPE CODE TESTS RESULT OUT OF RANGE REFERENCE UNITS LAB CMP with eGFR(LOINC) CMP with eGFR Result Comment: COMPREHENSIVE METABOLIC PANEL LAB SODIUM(LOINC) 136 - 145 mmol/l SODIUM 141 LAB POTASSIUM(LOINC) 3.5 - 5.1 mmol/L Low POTASSIUM 3.4 LAB CHLORIDE(LOINC) 98 - 107 mmol/L CHLORIDE 105 LAB CO2(LOINC) 21.0 - mmol/L 31.0 CO2 25.5 LAB GLUCOSE(LOINC) 74 - 106 mg/dl GLUCOSE High 115 LAB BUN(INC) 6 - 20 mg/dl BUN 11 LAB CREATININE(LOINC) 0.6 - 1.2 mg/dl CREATININE 0.7 LAB AST/SGOT(LOINC) 13 - 39 U/L AST/SGOT 24 LAB ALK PHOS(LOINC) 38 - 126 U/L ALK PHOS 73 LAB CALCIUM(LOINC) 8.6 - mg/dl 10.2 CALCIUM 9.5 LAB TOTAL 6.4 - 8.3 g/dl PROTEIN(LOINC) TOTAL PROTEIN 7.2 LAB ALBUMIN(LOINC) 3.4 - 4.8 g/dL ALBUMIN 4.3 LAB GLOBULIN(LOINC) 1.5 - 3.8 G/DL GLOBULIN 2.9 LAB A/G RATIO(LOINC) 0.9 - 1.6 A/G RATIO 1.5 LAB TOTAL BILI(LOINC) 0.0 - 1.5 mg/dl TOTAL BILI 0.5 LAB B/C RATIO(LOINC) 0 - 30 ratio B/C RATIO 16 LAB ALT/SGPT(LOINC) 8 - 35 U/L ALT/SGPT 26 LAB ANION GAP(LOINC) 10 - 20 mmol/L ANION GAP 14 LAB AGE(LOINC) years AGE 66 LAB eGFR(LOINC) 60 - 999 ML/MINUTE eGFR >60 LAB eGFR(AA)(LOINC) 60 - 999 ML/MINUTE eGFR(AA) >60 Result Comment: ACCORDING TO THE NATIONAL KIDNEY DISEASE EDUCATION PROGRAM(NKDE), A NORMAL eGFR IS A VALUE GREATER THAN OR EQUAL TO 60 ML/MIN/1.73 SQ METERS. CHRONIC KIDNEY DISEASE: <60mL/MIN/1.73 SQ METERS KIDNEY FAILURE: <15mL/MIN/1.73 SQ METERS THIS TEST SHOULD ONLY BE USED FOR PATIENTS 18 YEARS OF AGE AND OLDER. Performed By: #### [id number] #### [place] [address] LIPASE Collected: 06/10/2017 Status: F Source: [facility] 8:55 PM [facility] REPOSITORY TYPE CODE TESTS RESULT OUT OF REFERENCE UNITS RANGE LAB LIPASE(LOIN 18.0 - 51.0 U/L C) LIPASE 26.0 Performed By: #### [id number] #### [place] [address] URINALYSIS Collected: 06/10/2017 Status: F Source: [facility] 8:49 PM [facility] REPOSITORY TYPE CODE TESTS RESULT OUT OF REFERENCE UNITS RANGE LAB URINALYSIS (LOINC) URINALYSIS Result Comment: URINALYSIS LAB Specimen Type(LOINC) Specimen Type Void LAB Color(LOINC) NORMAL: YELLOW Color YELLOW LAB Clarity(LOINC) NORMAL: CLEAR Clarity Abnormal SL. CLOUDY LAB ph(LOINC) NORMAL: 5.0-8.0 ph 6.5 LAB Protein(LOINC) NORMAL: NEGATIVE Protein NEG LAB Glucose(LOINC) NORMAL: NORMAL Glucose NORM LAB Ketone(LOINC) NORMAL: NEGATIVE Ketone NEG LAB Bilirubin(LOINC) NORMAL: NEGATIVE Bilirubin NEG LAB Blood(LOINC) NORMAL: NEGATIVE Blood Abnormal 250 LAB Urobilinog(LOINC) NORMAL: NORMAL Urobilinog NORM LAB Sp Bethel(LOINC) NORMAL: 1.010-1.030 Sp Bethel 1.010 LAB Nitrite(LOINC) NORMAL: NEGATIVE Nitrite NEG LAB Leukocytes(LOINC) NORMAL: NEGATIVE Leukocytes Abnormal 25 LAB Microscopic(LOINC ) Microscopic SEE BELOW Result Comment: MICROSCOPIC LAB Wbc(LOINC) 0-5/hpf Wbc 6-10 LAB Rbc(LOINC) 0-3/hpf Rbc 20-25 LAB Casts(LOINC) Casts NONE LAB Crystals(LOINC) Crystals NONE LAB Amorphous(LOINC) Amorphous NONE LAB Bacteria(LOINC) Bacteria TRACE LAB Epi Cells(INC) Epi Cells MANY LAB Mucous(LOINC) Mucous TRACE LAB Yeast(INC) Yeast NONE Performed By: #### [id number] #### [facility],[address] [place] [address] Observed: 06/10/2017 Status: F Source: [facility] CULTURE URINE 8:49 PM [facility] REPOSITORY CULTURE URINE _URINE CULTURE_ M I C R O B I O L O G Y R E P O R T FINAL Antimicrobial Susceptibility and Organism Identification Report Specimen Number : [id number] Requested : 06/10/17 Specimen Source : URINE Collected : 06/10/17 20:49 [place] of Isolation : Emergency Room Received : 06/10/17 20:49 Requesting Physician : millicent Patient/Specimen Tests and Comments Specimen Comments FINAL REPORT: URINE COLONY COUNT: [id number] CFU/CC >OR=TO 3 COLONY TYPES PROBABLE CONTAMINATION Tech : Source : URINE ID # : [id number] FINAL Report Date : / / : Collected : 06/10/17 20:49 06/13/17.1156.BKO. 06/12/17.1102.BKO. 06/13/17.1156.BKO.COMPLETE Performed By: #### [id number] #### [facility],[address] [place] [address] ALLERGIES ALLERGIES DATE TYPE / CODE NAME / CODE REACTION SEVERITY SOURCE 01/17/2018 Drug adhesive Rash [facility] Allergy/416 tape/[id number] Hospital 769613(SNOM (RXNORM) Repository ED CT) Drug MEPERIDINE/0000 Moderate [facility] Allergy/416 0289(RXNORM) (Severity [facility] 512239(SNOM Modifier) Repository ED CT) (Qualifier Value) ENCOUNTERS ENCOUNTERS ADMIT/DISCHARGE ACCOUNT ADMITTING ENCOUNTER LOCATION SOURCE NUMBER CLASS 02/28/2018 [id number] Ambulatory BMSBuilding:B [place] 2 [facility] Repository 02/28/2018 [id number] Ambulatory [place] 6 [facility] ing:OMD Repository 02/28/2018 [id number] Ambulatory [place] 5 [facility] ing:OPBD Repository 01/17/2018 [id number] Ambulatory BMSBuilding:B [place] 4 [facility] Repository 01/02/2018 [id number] Ambulatory BMSBuilding:B [place] 6 MS.CF[facility] Repository 12/11/2017 [id number] Ambulatory BMSBuilding:B [place] 7 MS.[facility] Repository 12/04/2017 [id number] Ambulatory BMSBuilding:B [place] 8 MS.[facility] Repository 11/16/2017/ [id number] Ambulatory BMSBuilding:B [place] 8 8 [facility] Repository 11/09/2017/ [id number] Michael, Ambulatory [place] 8 8 [facility] ing:DE1Dxip: Repository ID585Svi: 1 11/09/2017/ [id number] Ambulatory BMSBuilding:B [place] 8 6 MS.CF.[facility] Repository 11/05/2017/ [id number] TREE RAYMUNDO [facility] oom: ERBed: E [facility] Repository 11/04/2017/ [id number] TREE RAYMUNDO [facility] DO oom: ERBed: C [facility] Repository 10/16/2017/ [id number] INDU, Ambulatory B[place] 8 [facility] Repository 10/16/2017/ [id number] Ambulatory BMSBuilding:B [place] 8 8 [facility] Repository 10/05/2017 [id number] Ambulatory BMSBuilding:B [place] 6 MS.[facility] Repository 10/02/2017 [id number] Ambulatory [place] 3 [facility] ing:LABSPEC Repository 10/02/2017/ [id number] Ambulatory BMSBuilding:B [place] 8 7 [facility] Repository 09/25/2017/ [id number] Ambulatory BMSBuilding:B [place] 8 5 [facility] Repository 09/25/2017 [id number] Ambulatory BMSBuilding:B [place] 3 MS.[facility] Repository 09/15/2017/ [id number] ISCKARUS, Ambulatory [facility] 8 [facility] Repository 06/10/2017/ [id number] NEMUNAITIS, Emergency [address]in[address] [place] [address] 8 HEATHER oom: ERBed: C [facility] Repository PAYERS PAYERS ENCOUNTER GUARANTOR PAYER SUBSCRIBER SOURCE 02/28/2018 ABELARDO Henriquez Primary ABELARDO Marquis [id number] BAHLER Insurance:ANTHEMPolicy YODERDOB: [facility] Number: [id number] [id number] Repository 51590Dfo: (330) Date:7888-28-04HJ [phone] () [address] [place] [address] 71041VJ: 02/28/2018 Secondary NEVIN A [place] Insurance:MEDICARE YODERDOB: [facility] PART A BPolicy Number: [id number] [id number] Repository Date:2016-06-02 02/28/2018 Tertiary NOT GIVENUNK [place] Insurance:SELF PAY [facility] Number: Effective Repository Date:2018-02-28 02/28/2018 ABELARDO Henriquez Primary ABELARDO Marquis [id number] BAHLER Insurance:ANTHEMPolicy YODERDOB: [facility] Number: [id number], [place] [id number] Repository 26224Tcy: (330) Date:0942-53-89OC [phone] () [place], [place] [address]DG: 02/28/2018 Secondary NEVIN A [place] Insurance:MEDICARE YODERDOB: Community PART A BPolicy Number: [id number] Hospital [id number] Repository Date:2016-06-02 02/28/2018 Tertiary NOT GIVENUNK [place] Insurance:SELF PAY [facility]: Effective Repository Date:2016-06-02 02/28/2018 ABELARDO Marquis [id number] [place] Insurance:ANTHEMPolicy YODERDOB: [facility] Number: [id number], [place] [id number] Repository 629[address]Cwi: (330) Date:0430-84-23SO [phone] () [address] [place] [address] 50335ZN: 02/28/2018 Secondary NEVIN A [place] Insurance:MEDICARE YODERDOB: Community PART A BPolicy Number: [id number] Hospital [id number] Repository Date:2018-01-19 02/28/2018 Tertiary NOT GIVENUNK [place] Insurance:SELF PAY [facility] Number: Effective Repository Date:2018-01-19 01/17/2018 ABELARDO Marquis [id number] [place] Insurance:ANTHEMPolicy YODERDOB: Community [facility] Number: [id number], [place] [id number] Repository 648[address]Uhj: (330) Date:7519-67-65FJ [phone] () [address] [place] [address] 87264UX: 01/17/2018 Secondary NEVIN A [place] Insurance:MEDICARE YODERDOB: Community PART A BPolicy Number: [id number] Hospital [id number] Repository Date:2016-06-02 01/17/2018 Tertiary NOT GIVENUNK [place] Insurance:SELF PAY [facility] Number: Effective Repository Date:2018-01-17 01/02/2018 ABELARDO Marquis [id number] [place] Insurance:ANTHEMPolicy YODERDOB: Community [facility] Number: [id number], [place] [id number] Repository 360[address]Ego: (330) Date:2462-27-29YK [phone] () [address] [place] [address] 57212CR: 01/02/2018 Secondary NEVIN A [place] Insurance:MEDICARE YODERDOB: Community PART A BPolicy Number: [id number] Hospital [id number] Repository Date:2016-06-02 01/02/2018 Tertiary NOT GIVENUNK [place] Insurance:SELF PAY [facility] Number: Effective Repository Date:2018-01-02 12/11/2017 ABELARDO Henriquez Primary ABELARDO [place] [id number] [place] Insurance:ANTHEMPolicy YODERDOB: Community [facility] Number: [id number], [place] [id number] Repository 38[address]Gsf: (330) Date:1002-82-08YQ [phone] () [address] [place] [address] 20150OJ: 12/11/2017 Secondary NEVIN A [place] Insurance:MEDICARE YODERDOB: Community PART A BPolicy Number: [id number] Hospital [id number] Repository Date:2016-06-02 12/11/2017 Tertiary NOT GIVENUNK [place] Insurance:SELF PAY [facility] Number: Effective Repository Date:2017-12-11 12/04/2017 ABELARDO Marquis [id number] [place] Insurance:ANTHEMPolicy YODERDOB: [facility] Number: [id number], [place] [id number] Repository 955[address]Vef: (330) Date:6887-47-33WO [phone] () [address] [place] [address] 68705NG: 12/04/2017 Secondary NEVIN A [place] Insurance:MEDICARE YODERDOB: Community PART A BPolicy Number: [id number] Hospital [id number] Repository Date:2016-06-02 12/04/2017 Tertiary NOT GIVENUNK [place] Insurance:SELF PAY [facility] Number: Effective Repository Date:2017-12-04 11/16/2017 ABELARDO Henriquze Primary ABELARDO Breenoster [id number] [place] Insurance:ANTHEMPolicy YODERDOB: Community [facility] Number: [id number], [place] [id number] Repository 09[address]Rhl: (330) Date:7222-37-03QC [phone] () [id number] [place] [address]GZ: 11/16/2017 Secondary NEVIN A [place] Insurance:MEDICARE YODERDOB: Community PART A BPolicy Number: [id number] Hospital [id number] Repository Date:2017-11-14 11/16/2017 Tertiary NOT GIVENUNK [place] Insurance:SELF PAY [facility] Number: Effective Repository Date:2017-11-14 11/09/2017 ABELARDO Henriquez Primary ABELARDO [place] [id number] [place]ER Insurance:ANTHEMPolicy YODERDOB: [facility] Number: [id number], [place] [id number] Repository 56[address]Jto: (330) Date:2076-38-01CK [phone] () [address] [place] [address] [place] 92[address]LM: 11/09/2017 Secondary NEVIN A [place] Insurance:MEDICARE YODERDOB: Community PART A BPolicy Number: [id number] Hospital [id number] Repository Date:2017-10-18 11/09/2017 Tertiary NOT GIVENUNK [place] Insurance:SELF PAY [facility] Number: Effective Repository Date:2017-10-18 11/09/2017 ABELARDO Henriquez Primary ABELARDO [place] [id number] [place] Insurance:ANTHEMPolicy YODERDOB: [facility] Number: [id number], [place] [id number] Repository [address]Uiy: (330) Date:1815-93-89PC [phone] () [address]SBANLVC, [place] [address]RZ: 11/09/2017 Secondary NEIVN A [place] Insurance:MEDICARE YODERDOB: Community PART A BPolicy Number: [id number] Hospital [id number] Repository Date:2017-10-18 11/09/2017 Tertiary NOT GIVENUNK [place] Insurance:SELF PAY Community [facility] Number: Effective Repository Date:2017-11-09 11/05/2017 NEVIN COLIN Primary Insurance:BLUE ABELARDO [place] YODERDOB: [address] [birth year] ANTHEM YODERDOB: [facility] [id number] Hospital BAHLER Number: [facility] Repository [place], [id number] [place], [place] Date:Plan Name:[facility] [id number]: [address]PDSNZYW, [place] [phone]: [phone] () [phone] 11/05/2017 Secondary NEVIN [place] Insurance:500 MEDICARE YODERDOB: [facility] [id number] Hospital Number: [facility] [id number] [place], [place] Date:Plan Name: [id number] 11/04/2017 NEVIN COLIN Primary Insurance:JESSICA [place] YODERDOB: [address] [birth year] ANTHEM YODERDOB: [facility] [id number] Hospital BAHLER Number: [facility] Repository [place], [id number] [place], [place] Date:Plan Name:[facility] [id number]: [address]FBLKFIA, [place] [phone]: [phone] () [phone] 11/04/2017 Secondary NEVIN [place] Insurance:500 MEDICARE YODERDOB: [facility] [id number] Hospital Number: [facility] [id number] [place], [place] Date:Plan Name: [id number] 10/16/2017 NEVIN DIXIE Primary Insurance:BLUE ABELARDO [place] YODERDOB: [address] [birth year] ANTHEM YODERDOB: [facility] [id number] [facility] Number: [facility] [place], [id number] [place], [place] Date:Plan Name:[facility] [id number]: [address] [place] [phone]: [phone] ([phone] 10/16/2017 Secondary NEVIN A B[place] Insurance:500 MEDICARE YODERDOB: [facility] [id number] Hospital Number: [facility] Repository [id number] [place] Date:Plan Name: [id number] 10/16/2017 Abelardo Fredis Primary ABELARDO [place] [id number] [facility] Insurance:ANTHEMPolicy YODERDOB: [facility] Number: [id number], [place] [id number] Repository [address]Plx: 330) Date:8044-17-35HJ [phone] () [id number] [place] [address] 57805HU: 10/16/2017 Secondary NEVIN A [place] Insurance:MEDICARE YODERDOB: Community PART A BPolicy Number: [id number] Hospital [id number] Repository Date:2017-10-11 10/16/2017 Tertiary NOT GIVENUNK [place] Insurance:SELF PAY Community [facility] Number: Effective Repository Date:2017-10-16 10/05/2017 Abelardo Fredis Primary ABELARDO [place] [id number] [facility] Insurance:ANTHEMPolicy YODERDOB: [facility] Number: [id number], [place] [id number] Repository [address]25[address]Ywi: 330) Date:3753-51-00NE [phone] () [id number] [place] [address] 537[address]NH: 10/05/2017 Secondary NEVIN A [place] Insurance:MEDICARE YODERDOB: Community PART A BPolicy Number: [id number] Hospital [id number] Repository Date:2016-06-02 10/05/2017 Tertiary NOT GIVENUNK [place] Insurance:SELF PAY Community [facility] Number: Effective Repository Date:2017-10-05 10/02/2017 Abelardo Fredis Primary ABELARDO [place] [id number] [place] Insurance:ANTHEMPolicy YODERDOB: [facility] Number: [id number], [place] [id number] Repository 269[address]Gdd: (330) Date:8512-19-31RP [phone] () 3816[address]RWPGJNI, [place] [address]HD: 10/02/2017 Secondary NEVIN A [place] Insurance:MEDICARE YODERDOB: Community PART A BPolicy Number: [id number] Hospital [id number] Repository Date:2017-10-02 10/02/2017 Tertiary NOT GIVENUNK [place] Insurance:SELF PAY [facility] Number: Effective Repository Date:2017-10-02 10/02/2017 Abelardo Fredis Primary ABELARDO [place] [id number] [place] Insurance:ANTHEMPolicy YODERDOB: [facility] Number: [id number], [place] [id number] Repository 087[address]Jsz: (330) Date:9313-07-22DV [phone] () 0668[address]LQPPZKL, [place] [address]HQ: 10/02/2017 Secondary NEVIN A [place] Insurance:MEDICARE YODERDOB: Community PART A BPolicy Number: [id number] Hospital [id number] Repository Date:2017-09-25 10/02/2017 Tertiary NOT GIVENUNK [place] Insurance:SELF PAY [facility] Number: Effective Repository Date:2017-10-02 09/25/2017 Abelardo Fredis Primary ABELARDO [place] [id number] [place] Insurance:ANTHEMPolicy YODERDOB: [facility] Number: [id number], [place] [id number] Repository [address]Lyw: (330) Date:1808-24-13MY [phone] () 252550UIYPRXQ, [place] [address]IY: 09/25/2017 Secondary NEVIN A [place] Insurance:MEDICARE YODERDOB: Community PART A BPolicy Number: [id number] Hospital [id number] Repository Date:2017-09-25 09/25/2017 Tertiary NOT GIVENUNK [place] Insurance:SELF PAY [facility] Number: Effective Repository Date:2017-09-25 09/25/2017 Abelardo Mcneal Primary ABELARDOCOLLEEN [place] [id number] [facility] Insurance:ANTHEMPolicy YODERDOB: [facility] Number: [id number], [place] [id number] Repository 625[address]Pit: 330) Date:3120-38-38XU [phone] () [id number] [place] [address] 785[address]UT: 09/25/2017 Secondary NEVIN A [place] Insurance:MEDICARE YODERDOB: Community PART A BPolicy Number: [id number] Hospital [id number] Repository Date:2016-06-02 09/25/2017 Tertiary NOT GIVENUNK [place] Insurance:SELF PAY [facility] Number: Effective Repository Date:2017-09-25 09/15/2017 NEVIN DIXIE Primary Insurance:BLUE ABELARDO L Burt Lewis YODERDOB: [address] [birth year] ANTHEM YODERDOB: [facility] [id number] [place] [address] Number: [facility] Repository [facility] [place], [id number] [place], [place] Date:Plan Name:[facility] [id number]: [id number] [place] [address] [id number]: [phone] ([phone] 09/15/2017 Secondary NEVIN Hawthorne [place] Insurance:500 MEDICARE YODERDOB: [facility] [id number] Hospital Number: [facility] Repository [id number] [facility], [place] Date:Plan Name: [id number] 06/10/2017 NEVIN COLIN Primary Insurance:BLUE ABELARDO L B[place] YODERDOB: [address] [birth year] ANTHEM YODERDOB: [facility] [id number] [facility] Number: [facility] Repository [facility] [place], [id number] [facility], [place] Date:Plan Name:[facility] [id number]: [facility] 946399LKCUQMH, [place] [phone]: ([phone]) (BK) [phone] 06/10/2017 Secondary NEVIN Lewis Insurance:500 MEDICARE YODERDOB: [facility] [id number] Hospital Number: [facility] [id number] [facility], [place] Date:Plan Name: [id number]
== END ==
PROVIDERS: PCP Family Medicine; Visit Provider Nurse Practitioner Family
DX: Z13.820 Encounter for screening for osteoporosis (principal); Z78.0 Asymptomatic menopausal state; Z79.811 Long term (current) use of aromatase inhibitors
CPT/HCPCS: 77081

== ENCOUNTER → 2019-11-21 15:09 | Outpatient (CLI) | payer BC, MEDICARE, SELFPAY ==
[2017-12-11 15:14] VITALS: BMI 34.5
[2019-08-21 15:41] VITALS: BMI 35.2
--- NOTE | 2019-11-21 15:09 | BI_ITS ---
MAMMOGRAPHY - UNILATERAL SCREENING: LEFT BREAST REASON FOR EXAM: Female, 69 years old. Routine annual screening examination (unilateral). PERTINENT HISTORY: Personal history of breast cancer. Prior left lumpectomy. Prior right mastectomy. Sister with breast cancer. Aunt with breast cancer. TECHNIQUE: Digital unilateral breast anna (3D mammographic acquisition) in the CC and MLO projections. 2-D mediolateral oblique (MLO) and craniocaudad (CC) views of both breasts were obtained. CAD: Full Field Digital Mammography with Computer Added Detection was performed. COMPARISON: Comparison is made with prior outside examination dated 09/17/2018. FINDINGS: Breast Composition: The breasts are heterogeneously dense, which may obscure small masses. There are no dominant masses or suspicious calcifications. Stable benign-appearing axillary lymph nodes. No other significant abnormalities are identified. There has been no significant change since the prior study. BI/SCREEN MAMM (CAD) W/ANNA UNI L IMPRESSION: Stable unilateral screening mammogram. Yearly follow-up mammogram recommended. (A) ASSESSMENT CATEGORY: BIRADS Category 2: Benign. A letter regarding these results will be sent to the patient by the facility within 30 days. Approximately 10% of breast cancers are not detected by mammography. A normal mammogram should not delay biopsy of a clinically suspicious abnormality. [id number] Electronically Signed: Cipriano Bryant, at 8:21 EDT , Service support ,
== END ==
PROVIDERS: PCP Nurse Practitioner Family; Referring Provider Internal Medicine Hematology & Oncology; Visit Provider Internal Medicine Hematology & Oncology
DX: C50.919 Malignant neoplasm of unspecified site of unspecified female breast (principal); Z12.31 Encounter for screening mammogram for malignant neoplasm of breast
CPT/HCPCS: 77063; 77067

== ENCOUNTER → 2020-04-07 15:38 | Outpatient (CLI) | payer BC, MEDICARE, SELFPAY ==
[2017-12-11 15:14] VITALS: BMI 34.5
[2019-08-21 15:41] VITALS: BMI 35.2
--- NOTE | 2020-04-07 15:47 | BD_ITS ---
STUDY: DUAL ENERGY X-RAY ABSORPTIOMETRY / DXA REASON FOR EXAM: Female, 69 years old. 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 COMPARISON: Comparison is made with prior study dated 02/28/2018. FINDINGS: Right Forearm: g/cm2 (0.815) / T-score (-0.8) / Z-score (1.1) Left Forearm: g/cm2 (0.733) / T-score (-1.7) / Z-score (0.2) BD/Dexa Bone Density/Append Skel IMPRESSION: The patient is considered osteopenic as outlined below according to World Bernard Organization (WHO) criteria with a moderate fracture risk. There has been improvement of bone density since the previous examination. Reference Information: The T-score is the number of standard deviations above or below the standard which is normal for young adults at their peak bone mineral density. The World Health Organization (WHO) interprets the T-scores as follows: Above -1 Normal bone density Between -1 and -2.5 Osteopenia Equal to / or below -2.5 Osteoporosis As a practical clinical guideline, osteopenia may be graded as follows: Mild -1 through -1.5 Moderate -1.6 through -2.0 Severe -2.1 through -2.4 The Z-score is the number of standard deviations above or below age-matched controls. A Z-score of less than -1.5 would be considered abnormal. References: 1. NIH Osteoporosis and Related Bone Diseases www osteo.org 2. International Society for Clinical Densitometry www iscd.org 3. National Osteoporosis Foundation www nof.org Electronically Signed: Cipriano Bryant MD at 8:52 EST , Service support ,
== END ==
PROVIDERS: PCP Nurse Practitioner Family; Referring Provider Internal Medicine Hematology & Oncology; Visit Provider Internal Medicine Hematology & Oncology
DX: Z78.0 Asymptomatic menopausal state (principal)
CPT/HCPCS: 77081

== ENCOUNTER → 2020-11-23 15:50 | Outpatient (CLI) | payer BC, MEDICARE, SELFPAY ==
[2017-12-11 15:14] VITALS: BMI 34.5
[2020-09-16 15:36] VITALS: BMI 33.8
--- NOTE | 2020-11-23 15:52 | BI_ITS ---
MAMMOGRAPHY - UNILATERAL SCREENING: LEFT BREAST REASON FOR EXAM: Female, 70 years old. Routine annual screening examination (unilateral). PERTINENT HISTORY: Personal history of breast cancer. Patient is status post right mastectomy and prior left lumpectomy. Sister with breast cancer. Aunt with breast cancer. TECHNIQUE: Digital unilateral breast anna (3D mammographic acquisition) in the CC and MLO projections. 2-D mediolateral oblique (MLO) and craniocaudad (CC) views of both breasts were obtained. CAD: Full Field Digital Mammography with Computer Added Detection was performed. COMPARISON: Comparison is made with prior study 11/21/2019. FINDINGS: Breast Composition: The breasts are heterogeneously dense, which may obscure small masses. There are no dominant masses or suspicious calcifications. Stable focal area of architectural distortion in the upper lateral aspect of the left breast interpreted with the prior lumpectomy and postoperative scarring. No other significant abnormalities are identified. There has been no significant change since the prior study. BI/SCREEN MAMM (CAD) W/ANNA UNI L IMPRESSION: Stable unilateral screening mammogram. Yearly follow-up mammogram recommended. (A) ASSESSMENT CATEGORY: BIRADS Category 2: Benign. A letter regarding these results will be sent to the patient by the facility within 30 days. Approximately 10% of breast cancers are not detected by mammography. A normal mammogram should not delay biopsy of a clinically suspicious abnormality. [id number] Electronically Signed: Cipriano Bryant MD at 8:04 EDT , Service support ,
== END ==
PROVIDERS: PCP Nurse Practitioner Family; Referring Provider Internal Medicine Hematology & Oncology; Visit Provider Internal Medicine Hematology & Oncology
DX: C50.912 Malignant neoplasm of unspecified site of left female breast (principal); Z17.0 Estrogen receptor positive status [ER+]; C50.911 Malignant neoplasm of unspecified site of right female breast; Z17.1 Estrogen receptor negative status [ER-]; Z12.31 Encounter for screening mammogram for malignant neoplasm of breast
CPT/HCPCS: 77063; 77067

== ENCOUNTER 2021-11-30 13:45 | Outpatient (CLI) | payer BC, MEDICARE, SELFPAY ==
[2017-12-11 15:14] VITALS: BMI 34.5
--- NOTE | 2021-11-30 13:47 | BI_ITS ---
MAMMOGRAPHY - UNILATERAL SCREENING: LEFT BREAST REASON FOR EXAM: Female, 71 years old. Routine annual screening examination (unilateral). PERTINENT HISTORY: Non-contributory. TECHNIQUE: Digital examination. Mediolateral oblique (MLO) and craniocaudad (CC) views of the breast were obtained. CAD: CAD was performed on this study. COMPARISON: 11/23/2020 FINDINGS: Breast Composition: The breasts are heterogeneously dense, which may obscure small masses. There are no dominant masses or suspicious calcifications. No other significant abnormalities are identified. BI/SCREEN MAMM (CAD) W/ANNA UNI L IMPRESSION: Stable left screening mammogram. ASSESSMENT CATEGORY: BIRADS Category 1: Negative. A letter regarding these results will be sent to the patient by the facility within 30 days. FOLLOW UP RECOMMENDATION: Yearly follow up mammogram recommended. (A) [id number] Approximately 10% of breast cancers are not detected by mammography. A normal mammogram should not delay biopsy of a clinically suspicious abnormality. [id number] Electronically Signed: Jeremie Cabrales MD at 14:48 EDT ,
== END 2021-11-30 23:59 | disposition home or self-care (01) ==
LOC: OPBI 13:46
PROVIDERS: PCP Nurse Practitioner Family; Visit Provider Internal Medicine Hematology & Oncology
DX: Z12.31 Encounter for screening mammogram for malignant neoplasm of breast (principal); C50.912 Malignant neoplasm of unspecified site of left female breast; C50.911 Malignant neoplasm of unspecified site of right female breast; Z17.0 Estrogen receptor positive status [ER+]; M85.80 Other specified disorders of bone density and structure, unspecified site; Z17.1 Estrogen receptor negative status [ER-]
CPT/HCPCS: 36415; 77063; 77067; 80053; 85025; 96372; J0897

== ENCOUNTER → 2022-12-01 | Outpatient (CLI) | payer BC, MEDICARE, SELFPAY ==
[2017-12-11 15:14] VITALS: BMI 34.5
--- NOTE | 2022-12-01 14:28 | BI_ITS ---
MAMMOGRAPHY - UNILATERAL SCREENING: LEFT BREAST REASON FOR EXAM: Female, 72 years old. Routine annual screening examination (unilateral). PERTINENT HISTORY: Personal history of breast cancer. Prior right mastectomy. Prior left lumpectomy. Sister with breast cancer. Aunt with breast cancer. TECHNIQUE: Digital unilateral breast anna (3D mammographic acquisition) in the CC and MLO projections. 2-D mediolateral oblique (MLO) and craniocaudad (CC) views of both breasts were obtained. CAD: Full Field Digital Mammography with Computer Added Detection was performed. COMPARISON: Comparison is made with prior examination dated November 30, 2021 and November 23, 2020. FINDINGS: Breast Composition: The breasts are heterogeneously dense, which may obscure small masses. There are no dominant masses or suspicious calcifications. Stable architectural distortion in the upper lateral aspect of the left breast in keeping with prior lumpectomy and postoperative scarring. Stable small benign appearing bilateral axillary lymph nodes. No other significant abnormalities are identified. There has been no significant change since the prior study. BI/SCREEN MAMM (CAD) W/ANNA UNI L IMPRESSION: Stable unilateral screening mammogram. Yearly follow-up mammogram recommended. (A) ASSESSMENT CATEGORY: BIRADS Category 2: Benign. A letter regarding these results will be sent to the patient by the facility within 30 days. Approximately 10% of breast cancers are not detected by mammography. A normal mammogram should not delay biopsy of a clinically suspicious abnormality. [id number] Electronically Signed: Cipriano Bryant MD at 15:25 EDT ,
--- NOTE | 2022-12-01 14:33 | BD_ITS ---
STUDY: DUAL ENERGY X-RAY ABSORPTIOMETRY / DXA REASON FOR EXAM: Female, 72 years old. SCREENING TECHNIQUE: Bone Mineral Density (BMD) measurements of both forearms were obtained. COMPARISON: Comparison is made with prior study dated April 07, 2020. FINDINGS: Right Forearm: g/cm2 (0.543) / T-score (-0.7) / Z-score (1.7) Left Forearm: g/cm2 (0.486) / T-score (-1.7) / Z-score (0.6) BD/Dexa Bone Density/Append Skel IMPRESSION: The patient is considered osteopenic as outlined below according to World Bernard Organization (WHO) criteria with a moderate fracture risk. There has been worsening of bone density since the previous examination. Reference Information: The T-score is the number of standard deviations above or below the standard which is normal for young adults at their peak bone mineral density. The World Health Organization (WHO) interprets the T-scores as follows: Above -1 Normal bone density Between -1 and -2.5 Osteopenia Equal to / or below -2.5 Osteoporosis As a practical clinical guideline, osteopenia may be graded as follows: Mild -1 through -1.5 Moderate -1.6 through -2.0 Severe -2.1 through -2.4 The Z-score is the number of standard deviations above or below age-matched controls. A Z-score of less than -1.5 would be considered abnormal. References: 1. NIH Osteoporosis and Related Bone Diseases www osteo.org 2. International Society for Clinical Densitometry www iscd.org 3. National Osteoporosis Foundation www nof.org Electronically Signed: Cipriano Bryant MD at 9:14 EDT ,
== END | disposition home or self-care (01) ==
LOC: OPBD 14:26
PROVIDERS: PCP Nurse Practitioner Family; Referring Provider Internal Medicine Hematology & Oncology; Visit Provider Internal Medicine Hematology & Oncology
DX: Z12.31 Encounter for screening mammogram for malignant neoplasm of breast (principal); Z85.3 Personal history of malignant neoplasm of breast; Z80.3 Family history of malignant neoplasm of breast; M85.80 Other specified disorders of bone density and structure, unspecified site
CPT/HCPCS: 77063; 77067; 77081

== ENCOUNTER → 2023-12-19 | Outpatient (CLI) | payer BC, MEDICARE, SELFPAY ==
[2017-12-11 15:14] VITALS: BMI 34.5
--- NOTE | 2023-12-19 13:20 | BI_ITS ---
MAMMOGRAPHY - UNILATERAL SCREENING: LEFT BREAST REASON FOR EXAM: Female, 73 years old. Routine annual screening examination (unilateral). PERTINENT HISTORY: Personal history of breast cancer. Prior left lumpectomy. Prior right mastectomy. Sister with breast cancer. Aunt with breast cancer. TECHNIQUE: Digital unilateral breast anna (3D mammographic acquisition) in the CC and MLO projections. 2-D mediolateral oblique (MLO) and craniocaudad (CC) views of both breasts were obtained. CAD: Full Field Digital Mammography with Computer Added Detection was performed. COMPARISON: Comparison is made with prior study dated December 01, 2022 and November 30, 2021. FINDINGS: Breast Composition: The breasts are heterogeneously dense, which may obscure small masses. There are no dominant masses or suspicious calcifications. Stable small left axillary lymph nodes. Stable architectural distortion in the upper lateral aspect of the left breast and compared with prior lumpectomy and postsurgical scarring. No other significant abnormalities are identified. There has been no significant change since the prior study. BI/SCREEN MAMM (CAD) W/ANNA UNI L IMPRESSION: Stable unilateral screening mammogram. Yearly follow-up mammogram recommended. (A) ASSESSMENT CATEGORY: BIRADS Category 2: Benign. A letter regarding these results will be sent to the patient by the facility within 30 days. Approximately 10% of breast cancers are not detected by mammography. A normal mammogram should not delay biopsy of a clinically suspicious abnormality. [id number] Electronically Signed: Cipriano Bryant MD at 14:44 EDT ,
== END | disposition home or self-care (01) ==
LOC: OPBI 13:20
PROVIDERS: PCP Student in an Organized Health Care Education/Training Program; Referring Provider Nurse Practitioner Family; Visit Provider Nurse Practitioner Family
DX: Z12.31 Encounter for screening mammogram for malignant neoplasm of breast (principal); Z85.3 Personal history of malignant neoplasm of breast; Z90.11 Acquired absence of right breast and nipple; Z80.3 Family history of malignant neoplasm of breast
CPT/HCPCS: 77063; 77067

== ENCOUNTER → 2024-12-19 | Outpatient (CLI) | payer MEDICARE, SELFPAY ==
[2017-12-11 15:14] VITALS: BMI 34.5
--- NOTE | 2024-12-19 10:47 | BD_ITS ---
PROCEDURE: DEXA BONE DENSITY/APPEND SKEL 12/19/2024 REASON FOR EXAM: OSTEOPENIA F, age 74 y/o . TECHNIQUE: Procedure Code: [id number] Modality: DX Procedure: DEXA BONE DENSITY/APPEND SKEL COMPARISON: 12/01/2022 FINDINGS: BMD and T-SCORES Left 1/3 radius: 0.588 g/cm2, T-score -1.8 Change from prior: +3.4%. Right 1/3 radius: 0.538 g/cm2, T-score -0.8 Change from prior: -0.8%. The World Health Organization has defined the following categories based on bone density: Normal bone density: T-score equal to or greater than -1.0 Osteopenia: T-score between -1.0 and -2.5 Osteoporosis: T-score equal to or less than -2.5 FRAX (or Comparable) Fracture Risk Assessment: Not reported (Note: FRAX is not to be reported in setting of normal range bone density, osteoporosis on DEXA, known history of osteoporosis, prior osteoporotic hip or vertebral fracture, or for any patient undergoing pharmacological treatment for bone loss.) The National Osteoporosis Foundation (NOF) recommends pharmacological treatment for patients with a FRAX 10-year risk of 3% or higher for a hip fracture, or 20% or higher for a major osteoporotic fracture, to prevent osteoporosis and reduce fracture risk. BD/Dexa Bone Density/Append Skel IMPRESSION: There is osteopenia of the left radius. Recommend follow-up as clinically warranted. Reading Location: [place] [id number]
--- NOTE | 2024-12-19 10:47 | BI_ITS ---
EXAM: SCREEN MAMM (CAD) W/ANNA UNI L DATE: 12/19/2024 CLINICAL HISTORY: F, Age 74 y/o , SCREENING TECHNIQUE: Procedure Code: [id number] Modality: MG Procedure: SCREEN MAMM (CAD) W/ANNA UNI L COMPARISON: Prior exam(s) dated 12/19/2023, 12/01/2022, 11/30/2021. FINDINGS: TISSUE DENSITY: The breasts are heterogeneously dense, which may obscure small masses. The mammogram demonstrates that the patient has dense breasts. Supplemental screening with whole breast ultrasound or MRI may be considered for further evaluation. Unilateral Left Breast Mammographic Findings: There is an asymmetry in the medial left breast at anterior depth visualized on the CC view. BI/SCREEN MAMM (CAD) W/ANNA UNI L IMPRESSION: The asymmetry in the medial left breast at anterior depth requires further eval uation. Recommend diagnostic mammogram and ultrasound of the left breast. OVERALL FINAL ASSESSMENT BI-RADS 0: INCOMPLETE - NEED ADDITIONAL IMAGING EVALUATION. RECOMMENDATION: Additional Views obtained/call backs Additional Recommendation none A letter with findings and recommendations will be mailed to the patient. Reading Location: [id number]
[2024-12-19 11:31] LABS: Hematocrit 42.4 % (37-47); Hemoglobin 14.8 g/dL (12.0-15.0); Immature Granulocytes Count 0.010 X10^3/uL (0.0-0.0); Mean Corp Hgb Conc 34.9 g/dL (32-36); Mean Corpuscular Volume 90.2 fL (81-99); Mean Platelet Vol. 10.2 fl (6.2-12.0); NRBC Flagged by Analyzer 0 % (0-5); Platelet Count 188 K/mm3 (150-450); RBC Distribution Width CV 13.3 % (11.6-14.6); RBC Distribution Width SD 44.6 fl (35.1-43.9); Red Blood Count 4.70 M/mm3 (4.2-5.4); White Blood Count 6.5 K/mm3 (4.4-11.0)
[2024-12-19 12:52] LABS: AST(SGOT) 26 U/L (<=31); Alanine Aminotransfer ALT/SGPT 19 U/L (<=34); Albumin, Serum 4.3 g/dL (3.4-4.8); Alkaline Phosphatase 68 U/L (35-104); Anion Gap 10 (5-15); BUN 11 mg/dL (4-19); BUN/Creat Ratio 14.1 RATIO (10-20); Calcium,Total 9.3 mg/dL (7.6-11.0); Carbon Dioxide 25.6 mmol/L (21.0-32.0); Chloride 106 mmol/L (98-108); Globulin 2.6 g/dL (2.2-4.2); Glucose 109 mg/dL (70-99); Potassium 4.3 mmol/L (3.3-5.1)
[2024-12-19 19:29] LABS: Xtra Tube EP Lab EXTRA TUBE
== END | disposition home or self-care (01) ==
PROVIDERS: PCP Student in an Organized Health Care Education/Training Program; Referring Provider Internal Medicine Hematology & Oncology; Visit Provider Internal Medicine Hematology & Oncology
DX: Z12.31 Encounter for screening mammogram for malignant neoplasm of breast (principal); Z78.0 Asymptomatic menopausal state; Z85.3 Personal history of malignant neoplasm of breast
CPT/HCPCS: 36415; 77063; 77067; 77081; 80053; 85025

== ENCOUNTER → 2024-12-26 | Outpatient (CLI) | payer MEDICARE, SELFPAY ==
[2017-12-11 15:14] VITALS: BMI 34.5
--- NOTE | 2024-12-26 13:02 | BI_ITS ---
EXAM: DIAG MAMM W/CAD, UNILAT 12/26/2024 CLINICAL HISTORY: F, Age 74 y/o , ASYMMETRY TECHNIQUE: Procedure Code: [id number] Modality: MG Procedure: DIAG MAMM W/CAD, UNILAT. Asymmetry in the medial aspect of the left breast. COMPARISON: Prior exam(s) dated December 19, 2024.. FINDINGS: TISSUE DENSITY: The breasts are heterogeneously dense, which may obscure small masses. Bilateral Breast Mammographic Findings: Magnification spot views were obtained. No suspicious abnormality is seen. Targeted sonographic correlation recommended. BI/DIAG MAMM W/CAD, UNILAT IMPRESSION: No suspicious abnormality is seen. Targeted sonographic correlation is recomme nded. OVERALL FINAL ASSESSMENT BI-RADS 0: INCOMPLETE - NEED ADDITIONAL IMAGING EVALUATION. RECOMMENDATION: Ultrasound Recommended Additional Recommendation none A letter with findings and recommendations will be mailed to the patient. Reading Location: [place] [id number]
--- NOTE | 2024-12-26 13:02 | BI_ITS ---
EXAM: DIAG MAMM W/CAD, UNILAT 12/26/2024 CLINICAL HISTORY: F, Age 74 y/o , ASYMMETRY TECHNIQUE: Procedure Code: [id number] Modality: MG Procedure: DIAG MAMM W/CAD, UNILAT. Asymmetry in the medial aspect of the left breast. COMPARISON: Prior exam(s) dated December 19, 2024.. FINDINGS: TISSUE DENSITY: The breasts are heterogeneously dense, which may obscure small masses. Bilateral Breast Mammographic Findings: Magnification spot views were obtained. No suspicious abnormality is seen. Targeted sonographic correlation recommended. BI/DIAG MAMM W/CAD, UNILAT IMPRESSION: No suspicious abnormality is seen. Targeted sonographic correlation is recomme nded. OVERALL FINAL ASSESSMENT BI-RADS 0: INCOMPLETE - NEED ADDITIONAL IMAGING EVALUATION. RECOMMENDATION: Ultrasound Recommended Additional Recommendation none A letter with findings and recommendations will be mailed to the patient. Reading Location: [place] [id number]
--- NOTE | 2024-12-26 13:02 | US_ITS ---
PROCEDURE: BREAST LIMITED UNILATERAL N/A REASON FOR EXAM: F, Age 74 y/o , ASYMMETRY COMPARISON: Prior mammogram done earlier in the day.. TECHNIQUE: Procedure Code: [id number] Modality: US Procedure: BREAST LIMITED UNILATERAL FINDINGS: There is a 6 mm x 4 mm x 2 mm well-defined hypoechoic nodular density at the 8 o'clock position of the breast at 5 cm from the nipple. This appears to be a benign-appearing lymph node. At the 8:30 position, there is evidence of calcification with posterior shadowing suggestive of vascular calcification. US/Breast Limited Unilateral IMPRESSION: Findings suggestive of a small benign-appearing lymph node at the 8 o'clock pos ition of the breast at 5 cm from the nipple as well as calcified vascular structure. The patient is status post lumpectomy. BI-RADS 2: BENIGN RECOMMENDATION: Routine annual follow-up in 1 Year Reading Location: [place] [address]
--- NOTE | 2024-12-26 13:02 | US_ITS ---
PROCEDURE: BREAST LIMITED UNILATERAL N/A REASON FOR EXAM: F, Age 74 y/o , ASYMMETRY COMPARISON: Prior mammogram done earlier in the day.. TECHNIQUE: Procedure Code: [id number] Modality: US Procedure: BREAST LIMITED UNILATERAL FINDINGS: There is a 6 mm x 4 mm x 2 mm well-defined hypoechoic nodular density at the 8 o'clock position of the breast at 5 cm from the nipple. This appears to be a benign-appearing lymph node. At the 8:30 position, there is evidence of calcification with posterior shadowing suggestive of vascular calcification. US/Breast Limited Unilateral IMPRESSION: Findings suggestive of a small benign-appearing lymph node at the 8 o'clock pos ition of the breast at 5 cm from the nipple as well as calcified vascular structure. The patient is status post lumpectomy. BI-RADS 2: BENIGN RECOMMENDATION: Routine annual follow-up in 1 Year Reading Location: [place] [id number]
== END | disposition home or self-care (01) ==
PROVIDERS: PCP Student in an Organized Health Care Education/Training Program; Referring Provider Internal Medicine Hematology & Oncology; Visit Provider Internal Medicine Hematology & Oncology
DX: N63.23 Unspecified lump in the left breast, lower outer quadrant (principal)
CPT/HCPCS: 76642; 77061; 77065; G0279